=== PATIENT | male | born 1925 | race Caucasian/White ===

== ENCOUNTER 2016-06-07 09:18 | Inpatient (IN) | payer MEDICARE, OTHER ==
[2016-06-07] VITALS (9 sets, daily range): BP systolic 116–139; BP diastolic 55–73; PULSE 73–90; RESP 15–36; O2SAT 93–98
[~2016-06-07] VITALS: Ht 165.1 cm; Wt 64.9 kg
[~2016-06-07 09:18] MED LIST: ASCO-294 PO; ASPI-973 PO; CALC1CAP22 PO; CHOL10008 PO; CINN500C14 PO; FLAX1CAP4 PO; LISI-571 PO; LOVA40TA PO; METO25TA6 PO; OMEG1CAP99 PO; UBID100C25 PO; VITA1CAP16 PO; VITA400C64 PO
--- NOTE | 2016-06-07 09:35 | ED.REPORT ---
HPI-Abd Pain M 40 and Over Date of Service Jun 07, 2016 ED Provider: Jose C Wei Patient is an 89 year old male with a history of SBO (x6) who presents to the ED after being referred by urgent care complaining of upper abdominal pain onset 0330 this morning. Associated symptoms include nausea and productive cough (onset yesterday). He denies fever, vomiting, diarrhea, or any other symptoms. Patient has an inguinal hernia but he reports that this pain feels more like previous SBO's. He ate yogurt, cottage cheese, and apple sauce at 0430 with Tums and prune juice. Nursing Notes Stated Complaint: ABDOMINAL PAIN Chief Complaint: Male Abdominal Pain Nursing Notes Reviewed: Yes Allergies: Coded Allergies: No Known Allergies (Verified Allergy, Unknown, 03/27/15) Scheduled Ascorbate Calcium (Vitamin C) 500 Mg Tablet 500 MG PO BID Aspirin (Aspirin) 81 Mg Tablet 81 MG PO DAILY Calcium Carbonate/Vitamin D3 (Calcium 600 + Vit D 400 Softgl) 1 Each Capsule 1 EACH PO BID Cholecalciferol (Vitamin D3) (Vitamin D3) 1,000 Unit Tab.chew 1,000 UNIT PO DAILY Cinnamon Bark (Cinnamon) 500 Mg Capsule 1,000 MG PO DAILY Flaxseed/Omega3,6,9/Fatty Acid (Flax Seed Oil 1,300 mg Softgel) 1 Each Capsule 1 EACH PO DAILY Lisinopril (Lisinopril) 5 Mg Tablet 10 MG PO DAILY Lovastatin (Lovastatin) 40 Mg Tablet 40 MG PO HS Metoprolol Tartrate (Metoprolol Tartrate) 25 Mg Tablet 12.5 MG PO BID [place]-3 Fatty Acids/Fish Oil (Fish Oil 1,200 mg Softgel) 1 Each Capsule 1 EACH PO HS Ubidecarenone (Co Q-10) 100 Mg Capsule 100 MG PO DAILY Vitamin B Complex & Vit C No.3 (B Complex with Vitamin C) 1 Each Capsule 1 EACH PO DAILYWL Vitamin E Mixed (Vitamin E) 400 Unit Capsule 400 UNIT PO HS Miscellaneous Medications Cholecalciferol (Vitamin D3) (Vitamin D3) 1,000 Unit Tab.chew 1,000 UNIT PO General Time Seen by MD: 09:34 Chief Complaint Abdominal pain Hx Obtained From: Patient, Other family... 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 hypertension hyperlipidemia prerenal azotemia, resolved DM- Diet controlled Reports: Cancer (Skin ) Past Surgical History hernia repair small bowel obstruction that required surgical intervention lysis of adhesions Transurethral resection of the prostate R hip replacement Reports: Appendectomy Family History Noncontributory Smoking History Former Smoker Social History Drug Use: Denies drug use Other Social History: Good social support, , Local resident Ambulatory Status Independent Review of Systems Constitutional: Denies: Fever Respiratory: Reports: Prod cough, clear GI: Reports: Abdominal pain, Nausea, Denies: Diarrhea, Vomiting Complete sys rev & neg: except as marked. Physical Exam Initial Vital Signs Vital Signs (First) Date Time Temp Pulse Resp B/P Pulse Ox O2 Delivery O2 Flow Rate FiO2 06/07/16 09:24 36.5 88 15 137/63 98 Room Air Initial VS: Reviewed Head / Eyes: Atraumatic, Normocephalic Neck: Full range of motion Skin: Warm, Dry Neurologic: Alert, Oriented, Nonfocal Psychiatric: Mood/affect normal, Behavior normal, Normal thought content General/Constitutional: Awake, Alert, Well developed Respiratory / Chest: Atraumatic, Breath sounds NL, Breath sounds = bilat, No respiratory distress Cardiovascular: Heart rate NL, Regular rhythm, Heart sounds NL Abdomen: BS normoactive Tenderness/Guarding/Rebound: Positive: Tender LUQ... (Severe), Tender RUQ... ( Severe) Sever upper abdominal tenderness with guarding. Back: Atraumatic Interpretation & Diagnostics Lab Results Interpretation Result Diagram: 06/07/16 1004 06/07/16 1004 Test 06/07/16 10:04 White Blood Count 14.7th/mm3 (3.8-10.1) Red Blood Count 4.61mil/mm3 (4.40-5.80) Hemoglobin 14.7g/dL (13.8-17.2) Hematocrit 41.2% (41.0-50.0) Mean Corpuscular Volume 89.4fL (81-100) Mean Corpuscular Hemoglobin 31.9pg (27.0-35.0) Mean Corpuscular Hemoglobin Concent 35.7% (32.0-37.0) Red Cell Distribution Width 11.7% (12.3-15.4) Platelet Count 282bil/L (150-400) Neutrophils (%) (Auto) 89.1% (40-74) Lymphocytes (%) (Auto) 2.1% (14-46) Monocytes (%) (Auto) 8.0% (4-12) Eosinophils (%) (Auto) 0.4% (0-5) Basophils (%) (Auto) 0.1% (0-3) Sodium Level 127mEq/L (134-144) Potassium Level 4.9mEq/L (3.5-5.2) Chloride Level 88mEq/L (97-108) Carbon Dioxide Level 24mmol/L (18-29) Blood Urea Nitrogen 28mg/dL (8-27) Creatinine 0.83mg/dL (0.76-1.27) Estimat Glomerular Filtration Rate 93mL/min (>59) Glucose Level 153mg/dL (60-99) Calcium Level 9.7mg/dL (8.5-10.1) Magnesium Level 1.8mg/dL (1.6-2.6) Total Bilirubin 0.9mg/dL (0.0-1.2) Aspartate Amino Transf (AST/SGOT) 32U/L (0-50) Alanine Aminotransferase (ALT/SGPT) 24U/L (0-44) Alkaline Phosphatase 53U/L (25-160) Total Protein 7.8g/dL (6.4-8.4) Albumin 4.4g/dL (3.4-5.0) Lipase 25U/L (13-60) ECG Interpretation ECG Interpretation: Sinus rate 69 no ischemia evidence prolonged SD interval probable left atrial enlargement Time: 11:43 Interpreted by: ED physician X-Ray Abdominal Interpretation IMPRESSION: Findings consistent with evolving mid or distal small bowel obstruction. Dictated by: Yunior Lou M.D. on 06/07/2016 at 10:51 Approved by: Yunior Lou M.D. on 06/07/2016 at 10:51 Study: 2 view Interpretation / Wet Read by: Interpret - Radiologist Re-Eval/Medical Decision Time of Eval: 11:25 )( Re-Eval Abdomen: Tenderness Re-Evaluation/Progress Note: Discussed need for admission. Patient understands and agrees with plan. All questions addressed at this time. Consultation #1: Referral / Consult Name: Carolee Anderson MD Consulted With: Surgeon Call Returned at: 11:12 Note: Discussed patient's case. Suggests NG2. Consultation #2: Referral / Consult Name: Sae Dawkins MD Consulted With: Hospitalist Call Returned at: 11:20 Geomatics Professor: Will see patient, Agrees with eval, Agrees with plan, Accepts admit Note: Discussed patient's case. Accepts admit. Counseled Regarding: Diagnosis, Lab results, Need for admission Discharge & Departure Primary Impression: SBO (small bowel obstruction) Disposition: ADMITTED TO HOSPITAL Vital Signs - All Vital Signs Date Time Temp Pulse Resp B/P Pulse Ox O2 Delivery O2 Flow Rate FiO2 06/07/16 09:24 36.5 88 15 137/63 98 Room Air Referrals: Irving Mondragon DO (PCP) Scribe Attestation Portions of this note were transcribed by Tatum Germain. I, Dr. Wei personally performed the history, physical exam and medical decision-making; I reviewed and confirmed the accuracy of the information in the transcribed note. Signed by: Tatum Germain 06/07/2016, 1157 copies to: Irving Mondragon Kirk H MD Jun 07, 2016 09:34 TATUM GERMAIN Jun 07, 2016 09:43
[2016-06-07] MEDS ORDERED: 0.9% Sodium Chloride 1,000 ML IV ONE (09:48)
[2016-06-07] MEDS ORDERED: Ondansetron 2 mg/mL 2 mL Inj IVPUSH PRN (09:50)
[2016-06-07] MEDS ORDERED: HYDROmorphone 0.5 mg/0.5 mL iSecure Syringe IVPUSH PRN (09:50)
[2016-06-07 10:50] LABS: Magnesium 1.8 mg/dL (1.6-2.6)
--- NOTE | 2016-06-07 10:53 | DRSVH ---
PROCEDURE: X-RAY ACUTE ABDOMINAL SERIES ([id number]) INDICATIONS: 89 year-old male with abdominal pain and nausea. TECHNIQUE: One view chest and two views of the abdomen were acquired. COMPARISON: [facility], CR, XR CHEST 1VW (PORTABLE), 03/27/2015, 5:15. [facility], CR, XR CHEST 1VW (PORTABLE), 03/27/2015, 2:29. [facility], CR, CHEST 1VW (DOROTEO BLE), 03/17/2014, 22:46. FINDINGS: Surgical changes and devices: Patient is status post right hip arthroplasty. Chest: Lungs are clear. Heart size is normal. No pleural effusions. No pneumoperitoneum. Abdomen: Multiple mildly dilated small bowel loops are present. There is scattered stool within nondi stended colon loops. No suspicious calcifications. Visualized solid organ contours appear normal. Bones: No suspicious bony lesions. There is multilevel lumbar spine disc degeneration. IMPRESSION: Findings consistent with evolving mid or distal small bowel obstruction. Dictated by: Yunior Lou M.D. on 06/07/2016 at 10:51 Approved by: Yunior Lou M.D. on 06/07/2016 at 10:51
[2016-06-07 11:04] LABS: Mean Corpuscular Volume 89.4 fL (81-100)
[2016-06-07 11:05] LABS: BASOPHILS % (AUTO) 0.1 % (0-3); EOSINOPHILS % (AUTO) 0.4 % (0-5); Mean Corpuscular Hemoglobin 31.9 pg (27.0-35.0); NEUTROPHILS % (AUTO) 89.1 % (40-74); Platelet Count 282 bil/L (150-400)
[2016-06-07] MEDS ORDERED: Alum-Mag Hydrox-Simeth 30 mL Suspension PO PRN (12:05)
[2016-06-07] MEDS ORDERED: Polyethylene Glycol (PEG) 17 Gm Powder PO PRN (12:05)
--- NOTE | 2016-06-07 15:30 | NUR ---
Admit Received patient from ED via gurney, with complaints of abdominal pain started this morning. NGT patent and in place, attached to low intermittent suction. Oriented to room and unit. Denies any pain at this time. Will continue to monitor.
[2016-06-07] MEDS: 0.9% Sodium Chloride 1,000 ML IV SCH (16:06)
--- NOTE | 2016-06-07 16:50 | PCM.HPMED ---
Subjective Date of Service Jun 07, 2016 Primary Provider: Admitting Physician: Sae Dawkins MD Primary Care Physician: Irving Mondragon DO Attending Physician: Sae Dawkins MD Admit Status: From the Emergency Department, Full Admit, Admit to Red Team Chief Complaint: Generalized abdominal pain/10h Dry heave/4 h 2 episodes of diarrhea/10 h History of Present Illness: 89-year-old gentleman with past medical history of recurrent SBO x6, hypertension, Bilateral carotid stenoses,multivessel CAD, history of laparotomy for small bowel obstruction, history of hernia repair presented with Generalized abdominal pain/10h,Dry heave/4 h,2 episodes of diarrhea/10 h. He states he woke up with sudden onset generalized, colicky, intermittent abdominal pain was associated abdominal distention at 3 AM this morning.he took Tums and Yogurt. He then had 2 episodes of loose stool. He continued to have abdominal pain and distention which prompted ED visit. He had dry cough yesterday which is new. Denies fever. Has epigastric pain but denies chest pain. Denies diaphoresis Ed Course: Vital signs unremarkable. Distended abdomen. labs; WBC 14.7, hemoglobin 14.7, sodium 127, lipase 25.ekg NSR abd XR: evolving mid or distal small bowel obstruction. IV fluids started, NG tube placed. Admission requested for small bowel obstruction Review of Systems: Comprehensive review of systems performed, pertinent positives and negatives included in history of present illness Allergies Coded Allergies: No Known Allergies (Verified Allergy, Unknown, 03/27/15) Home Medications Aspirin 81 mg daily Metoprolol 12.5 mg by mouth twice a day Lovastatin 40 mg at bedtime Lisinopril 40 mg by mouth daily, recently started PMH recurrent SBO x6, Bilateral carotid stenoses hypertension, multivessel CAD, [place] July 2013 history of laparotomy for small bowel obstruction Surgical History Cardiac cath 2013 Right hip replacement 2007 Laparotomy for small bowel obstruction 2009 TURP late Hernia repair with mesh 2 years ago Family History Reviewed and noncontributory Social History Hx Alcohol Use: No Hx Substance Use: No Hx Tobacco Use: No Smoking Status: Former Smoker Exam Vital Signs Vital Sign - Last Date Time Temp Pulse Resp B/P Pulse Ox O2 Delivery O2 Flow Rate FiO2 06/07/16 15:20 36.7 90 16 128/63 95 Room Air Exam Gen. patient is lying comfortably in hospital bed. NG tube in place, drained 200 ml HEENT: Head is normocephalic atraumatic, Pupils equal and reactive, extraocular movements intact, Lungs clear to auscultation bilaterally Heart regular rate and rhythm without murmurs gallops or rubs Abdomen , distended, slightly tender, tympanic all over. Hypoactive BS Extremities pulses are present dorsalis pedis posterior tibialis and radial. Skin is warm and dry there are no rashes, Psych alert and oriented to person place and time Neuro cranial nerves II through XII are grossly intact Lymph: There is no lymphadenopathy appreciated in the cervical supra infraclavicular regions : no franklin Lab and Diagnostics Result Diagram: 06/07/16 1004 06/07/16 1004 X-Rays, CTs and MRIs PROCEDURE: X-RAY ACUTE ABDOMINAL SERIES ([id number]) INDICATIONS: 89 year-old male with abdominal pain and nausea. TECHNIQUE: One view chest and two views of the abdomen were acquired. COMPARISON: [facility], CR, XR CHEST 1VW (PORTABLE), 03/27/2015, 5: 15. [facility], CR, XR CHEST 1VW (PORTABLE), 03/27/2015, 2:29. [facility], CR, CHEST 1VW (PORTABLE), 03/17/2014, 22:46. FINDINGS: Surgical changes and devices: Patient is status post right hip arthroplasty. Chest: Lungs are clear. Heart size is normal. No pleural effusions. No pneumoperitoneum. Abdomen: Multiple mildly dilated small bowel loops are present. There is scattered stool within nondistended colon loops. No suspicious calcifications. Visualized solid organ contours appear normal. Bones: No suspicious bony lesions. There is multilevel lumbar spine disc degeneration. IMPRESSION: Findings consistent with evolving mid or distal small bowel obstruction. Dictated by: Yunior Lou M.D. on 06/07/2016 at 10:51 Assessment & Plan 89-year-old gentleman with past medical history of recurrent SBO x6, hypertension, Bilateral carotid stenoses,multivessel CAD, history of laparotomy for small bowel obstruction, history of hernia repair presented with Generalized abdominal pain,Dry heave,2 episodes of diarrhea 1day . # Small bowel obstruction, acute, POA -Continue NG tube suction -Nothing by mouth -Serial abdominal exam and x-ray -pain meds prn,zofran prn - will consult surgery if continues to be symptomatic on NG tube # Leukocytosis, acute, POA -Due to SBO, will send procalcitonin,ua -Monitor for now, hold off antibiotics # hyponatremia -Na 127 -due to dehydration -NS at 100ml/h -recheck in am #Diarrhea,acute -Will send stool studies # History of CAD, history of carotid stenosis -Metoprolol 5 mg IV every 6 -will resume aspirin and statin once NG tube removed #Hypertension, chronic, stable -will resume home lisinopril once NG tube removed Discussed CODE STATUS,DNR/DNI SILVINO Sanchez tel [phone] Patient admitted under inpatient status with expected length of stay > 2 midnights for severity of present symptoms, complexities of treatment plan and risk for adverse events Time spent 55 minutes copies to: Irving Mondragon Melaku MD Jun 07, 2016 16:50
--- NOTE | 2016-06-07 20:33 | NUR ---
NGT At 1915, no NGT output in drainage container. At 1999, pt started to c/o 10/10 abdominal pain, feeling increasing abdominal pressure, and stated "My mouth is on fire." 2 RNs checked for NGT patency and flushed with 30 ml water. Stomach contents sluggishly moved through NGT, never reaching drainage container despite high suction. NGT does not seem to be patent. Anthony DOW at 2031. No response yet. Addendum: 06/07/16 at 2038 by DANIE CAMILO RN Repeat freddie at 2036. No response yet. Addendum: 06/07/16 at 2055 by DANIE CAMILO RN called back, ordered STAT CXR to check NGT placement. Ordered magic mouthwash for oral discomfort. Ordered tele removed for procedure. Pt continues to be in 10 pain and c/o nausea Addendum: 06/07/16 at 2251 by DANIE CAMILO RN CXR: NGT in correct placement. Flushed with 30 ml warm water and aspirated 20 ml. NGT seems to be draining and patent. Pt has little relief of pain and distention. Administered magic mouthwash. Will continue to monitor.
--- NOTE | 2016-06-07 21:14 | DRSVH ---
PROCEDURE: X-RAY CHEST ONE VIEW, PORTABLE ([id number]) INDICATIONS: 89 year-old male with nasogastric tube placement. TECHNIQUE: One view of the chest was acquired. COMPARISON: [facility], CR, XR ABD ACUTE SERIES 3VW, 06/07/2016, 10:18. [facility], CR, XR CHEST 1VW (PORTABLE), 03/27/2015, 5:15. [facility], CR, XR CHEST 1VW (PO RTABLE), 03/27/2015, 2:29. FINDINGS: Surgical changes and devices: Esophagogastric tube is now present, with tip in the gastric body. Lungs and pleura: No pleural effusions or pneumothorax. Lung volumes are decreased, with patchy ling ular opacities now present. Mediastinum: Mediastinal contours appear normal. Heart size is normal. There is aortic atheroscler osis. Bones and chest wall: No suspicious bony lesions. Overlying soft tissues appear unremarkable. IMPRESSION: 1. Esophagogastric tube tip is in expected position within the gastric body. 2. Decreased lung volumes, with patchy lingular atelectasis versus early pneumonia. Dictated by: Yunior Lou M.D. on 06/07/2016 at 21:13 Approved by: Yunior Lou M.D. on 06/07/2016 at 21:13
--- NOTE | 2016-06-07 22:30 | NUR ---
IV METOPROLOL Informed telemetry of IV metoprolol to be given. Per waste handling technician, HR 70s SR with 1 degree HB. BP 137/68. Addendum: 06/08/16 at 0525 by DANIE CAMILO RN Pt continued with SR 60s-70s with 1 degree HB all night. 2nd dose of metoprolol: Informed waste handling technician, same reading as above. BP 163/77 before administration.
[2016-06-07] MEDS: MeTOProlol 1 mg/mL 5 mL Inj IVPUSH SCH ×2 (22:33→22:35)
[2016-06-07] MEDS: Diphen-Lido-Mylanta 1:1:1 Susp 15 mL Syringe PO PRN (22:44)
[2016-06-08] VITALS (17 sets, daily range): BP systolic 100–167; BP diastolic 47–78; PULSE 65–94; RESP 12–20; O2SAT 91–95
[2016-06-08 01:17] LABS: APPEARANCE,URINE CLEAR (CLEAR,HAZY); COLOR,URINE DARK YELLOW (YELLOW)
[2016-06-08 01:18] LABS: OCCULT BLOOD,URINE NEGATIVE (NEGATIVE); UROBILINOGEN,URINE NORMAL (NORMAL)
[2016-06-08] MEDS: 0.9% Sodium Chloride 1,000 ML IV SCH ×3 (02:23→23:52)
[2016-06-08] MEDS: MeTOProlol 1 mg/mL 5 mL Inj IVPUSH SCH ×4 (04:45→22:35)
[2016-06-08] MEDS: Diphen-Lido-Mylanta 1:1:1 Susp 15 mL Syringe PO PRN (04:55)
[2016-06-08 07:37] LABS: BASOPHILS % (AUTO) 0 % (0-3); EOSINOPHILS % (AUTO) 0.1 % (0-5); Mean Corpuscular Hemoglobin 31.5 pg (27.0-35.0); Mean Corpuscular Volume 91.3 fL (81-100); NEUTROPHILS % (AUTO) 74.8 % (40-74); Platelet Count 218 bil/L (150-400)
[2016-06-08] MEDS ORDERED: Remifentanil 1 mg/3 mL Inj ONE (07:47)
[2016-06-08] MEDS ORDERED: Ketamine 10 mg/mL 20 mL Inj ONE (07:47)
[2016-06-08] MEDS ORDERED: Propofol 10,000 mCg/mL 20 mL Inj ONE (07:49)
[2016-06-08] MEDS ORDERED: Ondansetron 2 mg/mL 2 mL Inj ONE (07:49)
[2016-06-08] MEDS ORDERED: Dexamethasone 4 mg/mL Inj ONE (07:49)
[2016-06-08] MEDS ORDERED: Rocuronium 10 mg/mL 5 mL Inj ONE (07:49)
[2016-06-08 08:00] LABS: Magnesium 1.9 mg/dL (1.6-2.6)
--- NOTE | 2016-06-08 08:08 | PCM.PNSURG ---
Subjective Visit Information: Reason for Visit PSBO Surgery/Surgery Date Post-Op Day # Date of Admission: Jun 07, 2016 at 14:15 Hospital Day # Subjective: 89yom with SBO. I originally met him in 03/2015 when he presented with the same. He has a history of laparotomy with adhesiolysis for SBO. Overnight he has clear green NG output and continues to have abdominal pain. WBC is pending. Lactate is normal NG 530 mL out. Objective Vital Sign- Last 8 Hours Date Time Temp Pulse Resp B/P Pulse Ox O2 Delivery O2 Flow Rate FiO2 06/08/16 05:07 94 06/08/16 04:59 36.6 72 16 163/77 94 Room Air 06/08/16 04:38 68 06/08/16 01:21 37.0 66 20 134/67 93 Room Air 06/08/16 00:44 68 Intake and Output- Last 8 Hour 06/08/16 Cumulative From/Thru 07:00 06/07/16 09:24 - 06/08/16 05:32 Intake Total 1110 ml 2488 ml Output Total 864 ml 864 ml Balance 246 ml 1624 ml Intake Oral 100 ml 100 ml IV Total 1010 ml 2388 ml Output Urine Total 330 ml 330 ml Gastric Drainage Total 534 ml 534 ml General: Oriented X3, Cooperative, No Acute Distress Abdomen: Soft, Distended, Other (Tender, distended abdomen) Result Diagram: 06/07/16 1004 06/08/16 0654 Assessment & Plan Impression 89yom with SBO. Problems: Plan I am ordering a gastrografin challenge this morning. I will reassess him after it is administered. Carolee Anderson MD Jun 08, 2016 08:08
--- NOTE | 2016-06-08 08:49 | NUR ---
Bowel status Dr. Anderson assessed pt at bedside at 0745. Notified of overnight NG output and pt reports of pain and no BM/flatus. Abdomen taut. Per Dr. Anderson, no ice chips. To complete gastrograffin.
--- NOTE | 2016-06-08 09:46 | NUR ---
Gastrograffin Instilled with xray and RN at 0915. To remain off suction for 4 hours. Pt tolerated procedure well. Pain decreased in abd to 2/10 with morphine.
--- NOTE | 2016-06-08 11:04 | NUR ---
instilled with hotel maintenance technician at bedside, no xray performed
--- NOTE | 2016-06-08 11:04 | NUR ---
Status [address] Anderson that gastrograffin instilled at 0915. to order abdominal imaging at 1315, to place pt back on suction post imaging.
--- NOTE | 2016-06-08 11:09 | NUR ---
Social Work: Initial Assessment D: Per EMR review, pt is an 89 year old male admitted for partial SBO. Pt is [facility] Medicare with no LTC insurance or VA benefits. PCP is Dr. Irving Mondragon. NOK and DPOA is Ingrid Portillo/DPKANWAL, . Advanced directives scanned into EMR. Readmit score is low, 2/8. CLAIM MANAGER met with pt at bedside. Sw role explained. See initial assessment. Pt states he lives in [place], alone. Pt's niece/DPOA lives on the same property and assists pt with getting to medical appointments, errands and groceries. Pt has a history with [facility] for RN, PT however states that they have not been open since May. Pt does not believe that he needed home health in the first place and does not believe he needs it now. Pt also has a history with [facility]. Pt owns a walker and cane but states he does not require the use of them at this time. Per [employer], pt has been ambulating I during admission. Pt currently with NG tube in place to treat SBO. General Surgery is following the pt as well as hospitalist team. t/c to pt's DPOA to discuss possible needs; l/m requesting return phone call. A: Pt who lives at home, alone and owns a walker and cane. P: Anticipate pt to discharge home via POV; r/o possible home health. CLAIM MANAGER to continue to follow and assist with safe dcp. QUE Grace Addendum: 06/08/16 at 1116 by JESU FRIEND SS Amended: Links added.
--- NOTE | 2016-06-08 13:09 | NUR ---
Xray Pt down to xray at 1315. Stable.
--- NOTE | 2016-06-08 13:38 | DRSVH ---
PROCEDURE: X-RAY ABDOMEN, ONE VIEW ([id number]) INDICATIONS: sbo TECHNIQUE: One view of the abdomen acquired. COMPARISON: [facility], CR, XR ABD ACUTE SERIES 3VW, 06/07/2016, 10:18. FINDINGS: Surgical changes and devices: NG tube projects to the proximal stomach. Bowel: Proximal loops of small bowel are dilated up to 4.8 cm compatible with small bowel obstructio n. Dilated loops of bowel have decreased slightly in diameter compared to . Soft tissues: No suspicious abdominal calcifications. Visualized solid organ contours appear normal in size. Bones: No suspicious bony lesions. Status post right hip arthroplasty. IMPRESSION: Dilated loops of small bowel compatible with small bowel obstruction. Dictated by: Ilana Rockwell MD, PhD on 06/08/2016 at 13:36 Approved by: Ilana Rockwell MD, PhD on 06/08/2016 at 13:36
--- NOTE | 2016-06-08 13:42 | NUR ---
Xray Back from xray at 1335. Dr. Anderson paged at 1342 to determine if she would like to review films prior to reconnecting NG to suction. Pt stable. Addendum: 06/08/16 at 1355 by MONIQUE MCCRAY RN Per Dr. Anderson, to place pt back on suction, MD will come and evaluate at bedside.
--- NOTE | 2016-06-08 15:17 | PCM.PNMED ---
Subjective Date of Service Jun 08, 2016 Subjective Continues to have abdominal distention, NG tube to suction. Will have Gastrografin challenge today. No bowel movement or gas passed Exam Vital Signs Vital Sign - Last Date Time Temp Pulse Resp B/P Pulse Ox O2 Delivery O2 Flow Rate FiO2 06/08/16 12:40 36.8 65 16 167/78 92 Room Air Intake and Output 06/07/16 06/07/16 06/08/16 Cumulative From/Thru 15:00 23:00 07:00 06/07/16 09:24 - 06/08/16 05:32 Intake Total 1000 ml 378 ml 1110 ml 2488 ml Output Total 864 ml 864 ml Balance 1000 ml 378 ml 246 ml 1624 ml Intake Oral 100 ml 100 ml IV Total 1000 ml 378 ml 1010 ml 2388 ml Output Urine Total 330 ml 330 ml Gastric Drainage Total 534 ml 534 ml Exam Gen. patient is lying comfortably in hospital bed. NG tube in place, drained 200 ml HEENT: Head is normocephalic atraumatic, Pupils equal and reactive, extraocular movements intact, Lungs clear to auscultation bilaterally Heart regular rate and rhythm without murmurs gallops or rubs Abdomen , distended, slightly tender, tympanic all over. Hypoactive BS Extremities pulses are present dorsalis pedis posterior tibialis and radial. Skin is warm and dry there are no rashes, Psych alert and oriented to person place and time Neuro cranial nerves II through XII are grossly intact Lymph: There is no lymphadenopathy appreciated in the cervical supra infraclavicular regions : no franklin IVs and Medications Medications Reviewed: Medications were reviewed in detail Lab and Diagnostics Result Diagram: 06/08/16 0654 06/08/16 0654 X-Rays, CTs and MRIs PROCEDURE: X-RAY ACUTE ABDOMINAL SERIES ([id number]) INDICATIONS: 89 year-old male with abdominal pain and nausea. TECHNIQUE: One view chest and two views of the abdomen were acquired. COMPARISON: [facility], CR, XR CHEST 1VW (PORTABLE), 03/27/2015, 5: 15. [facility], CR, XR CHEST 1VW (PORTABLE), 03/27/2015, 2:29. [facility], CR, CHEST 1VW (PORTABLE), 03/17/2014, 22:46. FINDINGS: Surgical changes and devices: Patient is status post right hip arthroplasty. Chest: Lungs are clear. Heart size is normal. No pleural effusions. No pneumoperitoneum. Abdomen: Multiple mildly dilated small bowel loops are present. There is scattered stool within nondistended colon loops. No suspicious calcifications. Visualized solid organ contours appear normal. Bones: No suspicious bony lesions. There is multilevel lumbar spine disc degeneration. IMPRESSION: Findings consistent with evolving mid or distal small bowel obstruction. Dictated by: Yunior Lou M.D. on 06/07/2016 at 10:51 Assessment & Plan 89-year-old gentleman with past medical history of recurrent SBO x6, hypertension, Bilateral carotid stenoses,multivessel CAD, history of laparotomy for small bowel obstruction, history of hernia repair presented with Generalized abdominal pain,Dry heave,2 episodes of diarrhea 1day . # Small bowel obstruction, acute, POA -Continue NG tube suction -Nothing by mouth -Serial abdominal exam and x-ray -Gastrografin challenge today -pain meds prn,zofran prn -Surgery on board # Leukocytosis, acute, POA -Due to SBO, will send procalcitonin,ua -Monitor for now, hold off antibiotics # hyponatremia, improving -Initial Na 127 -due to dehydration -NS at 100ml/h -recheck in am #Diarrhea,acute -Will send stool studies # History of CAD, history of carotid stenosis -Metoprolol 5 mg IV every 6 -will resume aspirin and statin once NG tube removed #Hypertension, chronic, stable -will resume home lisinopril once NG tube removed Discussed CODE STATUS,DNR/DNI SILVINO Sanchez tel [phone] Disposition: [facility] course Sae Dawkins MD Jun 08, 2016 15:17
--- NOTE | 2016-06-08 15:28 | NUR ---
Status Dr. Anderson assessed pt at bedside. Discussed possibility of surgery with pt. Pt's abdomen continues to be distended with NG output with continued GI discomfort and no flatus/BM. Dr. Anderson to return this afternoon to discuss further. Dr. Anderson aware of elevated BP's today. Ingrid DUBOIS, number [phone] Addendum: 06/08/16 at 1618 by MONIQUE MCCRAY RN Per Dr. Anderson, pt will be going to surgery this afternoon/evening.
--- NOTE | 2016-06-08 16:18 | NUR ---
BP 1615 Hospitalist notified via cook page that BPs have been 160s/70s today.
--- NOTE | 2016-06-08 16:41 | PCM.HPANE ---
Patient Data Surgeon Admitting Provider:Sae Dawkins MD Attending Provider:Sae Dawkins MD Primary Care Physician:Irving Mondragon DO Other Provider: Reason for Visit PSBO Ht/WT & BMI Height (Feet): 5 Height (Inches): 5.00 Weight (Kilograms): 68.400 Body Mass Index 25.12 Allergies Coded Allergies: No Known Allergies (Verified Allergy, Unknown, 03/27/15) Past Anesthesia History Anesthesia History: Denies:: Anesthesia Reactions Diabetes History Hx Diabetes?: Yes (diet controlled) MRSA MRSA: No Medications Reported Medications Ubidecarenone (Co Q-10)100 Mg Letuany322 Mg PO DAILY 03/27/15 Cinnamon Bark (Cinnamon)500 Mg Capsule1,000 Mg PO DAILY 03/27/15 [place]-3 Fatty Acids/Fish Oil (Fish Oil 1,200 mg Softgel)1 Each Capsule1 Each PO HS 03/27/15 Flaxseed/Omega3,6,9/Fatty Acid (Flax Seed Oil 1,300 mg Softgel)1 Each Capsule1 Each PO DAILY 03/27/15 Vitamin E Mixed (Vitamin E)400 Unit Ticxjls266 Unit PO HS 30 Days 03/27/15 Cholecalciferol (Vitamin D3) (Vitamin D3)1,000 Unit Tab.chew1,000 Unit PO 03/27/15 Ascorbate Calcium (Vitamin C)500 Mg Egstfl273 Mg PO BID 03/27/15 Vitamin B Complex & Vit C No.3 (B Complex with Vitamin C)1 Each Capsule1 Each PO DAILYWL 03/27/15 Calcium Carbonate/Vitamin D3 (Calcium 600 + Vit D 400 Softgl)1 Each Capsule1 Each PO BID 03/27/15 Metoprolol Tartrate 25 Mg Hfvrsm27.5 Mg PO BID 30 Days Ref 0 03/27/15 Aspirin 81 Mg Psmtgu09 Mg PO DAILY Ref 0 03/27/15 Lovastatin 40 Mg Zhswph90 Mg PO HS #30 TABLET Ref 0 03/27/15 Lisinopril 5 Mg Smrrwl81 Mg PO DAILY #30 TABLET Ref 0 03/27/15 Discontinued Reported Medications Cholecalciferol (Vitamin D3) (Vitamin D3)1,000 Unit Tab.chew1,000 Unit PO DAILY 03/27/15 History History of ENT Problems?: Yes HEENT History: Denies:: Cataracts (removed, lens implant) Sinus Problem Denture Type: Partial- Upper Partial- Lower Other HEENT Pertinent History: Lens replacement per patient report. Hx of Heart Problems?: Yes Cardiovascular History: Positive for:: Hypertension Denies:: Cardiac Surgery Chest Pain Congestive Heart Failure Edema Heart Murmur Irregular Heartbeat Pacemaker Thrombophlebitis Other Cardiac History: Bilateral carotid stenosis, mult CAD Hx of Respiratory Problem?: No Respiratory History: Denies:: Tuberculosis Neurological History: Positive for:: Dizziness (dizziness this morning.) Headaches (seldomly) Denies:: Alzheimer's Disease CVA Dementia Parkinson's Disease Seizures Hx of GI Problems?: Yes Gastrointestinal History: Positive for:: Gastroesphageal Reflux Heartburn Rectal Bleeding (hemmorhoids) Denies:: Diverticulitis Gastrointestinal Bleeding Hepatitis Hiatal Hernia Hx of Problems?: Yes Genitourinary History: Denies:: HX of Hemodialysis Kidney Stones (denies) Urinary Tract Infection HX of Peritoneal Dialysis: No Male Hx: Positive for:: Prostate Problems (turp) Denies:: Scrotal Mass Testicular Surgery Hx Musculoskeletal Problems?: Yes Musculoskeletal History: Positive for:: Back Injury Joint Replacement (right hip) Denies:: Musculoskeletal Trauma Hx of Psycho/Social Problems?: No Psycho Social History: Denies:: Anxiety Bipolar Disorder Hx Depression Suicide Attempt Hx Surgeries?: Yes (right hip, appendicitis, small bowel obstruction, TURP) Hx Any Other Health Problems?: Yes Other History: Positive for:: Cancer (skin, 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 Denies:: Blood Transfuse Reaction Blood Transfusions Hx Diabetes: Yes (diet controlled) Hx Alcohol Use: NoHx Substance Use: No Smoking Status: Former Smoker Have You Smoked inLast 12 mo: No Stop/Bang Treated for Sleep Apnea?: No Do You Have a CPAP Machine?: No S-Snoring: Do You Snore Loudly: No T-Tired: feel tired, fatigued: No O-Obsered: Observed not breath: No P-Blood Pressure: treated: Yes B- Body Mass Index > 35 kg/m2: No A- Age over 50: Yes N- Neck Large Circumference: No G- Gender Male: Yes JAEL Total Score: 2 Risk Assessment Category Category 1A: Patient has history of documented sleep apnea, and HAS NOT received any narcotic, sedative or anesthesia administration during this stay. Category 1B: Patient has history of documented sleep apnea, and HAS received any narcotic , sedative or anesthesia administration during this stay Category 2: Patient has SUSPECTED Obstructive Sleep Apnea, and HAS received any narcotic , sedative or anesthesia administration during this stay. Category 3: Patient has SUSPECTED Obstructive Sleep Apnea and HAS NOT received narcotic, sedative or anesthesia administration during this stay. Category 4: Outpatient in Procedural Areas with known sleep apnea or who screen positive for High Risk via the STOP/BANG questionnaire. Exam Exam Vital Signs Vital Signs Date Time Temp Pulse Resp B/P Pulse Ox O2 Delivery O2 Flow Rate FiO2 06/08/16 16:12 36.9 82 14 165/78 92 Room Air 06/08/16 12:40 36.8 65 16 167/78 92 Room Air General Appearance: Alert, Oriented X3, Cooperative HEENT/AIRWAY: MP 2 Lungs: Normal Air Movement Heart: Exam Unremarkable Meds/Labs/Diagnostics Admission Meds Current Medications Enoxaparin Sodium (Lovenox Syringe) 40 mg DAILY SUBQ Last administered on t 07:45; Start 06/08/16 at 08:30 Labs Test 06/07/16 10:04 06/07/16 17:15 06/08/16 00:50 06/08/16 06:54 Lipase 25U/L (13-60) Lactic Acid Level 1.4mmol/L (0.4-2.0) Urine Color Dark yellow (YELLOW) Urine Appearance Clear (CLEAR,HAZY) Urine pH 6.0 (5.0-8.0) Urine Specific [place] 1.020 (1.003-1.035) Urine Protein Negativemg/dL (NEG,TRACE) Urine Glucose (UA) Negativemg/dL (NEGATIVE) Urine Ketones Negativemg/dL (NEGATIVE) Urine Occult Blood Negative (NEGATIVE) Urine Nitrite Negative (NEGATIVE) Urine Bilirubin Negative (NEGATIVE) Urine Urobilinogen Normalmg/dL (NORMAL) Urine Leukocyte Esterase Negative (NEGATIVE) Urine RBC 0-2/hpf (0-2) Urine WBC 0-5/hpf (0-5) Urine Epithelial Cells Occasional/hpf (NONE-MOD) Urine Crystals None seen (NONE SEEN) Urine Bacteria None/hpf (NONE-FEW) Urine Hyaline Casts None/lpf (NONE) Urine Granular Casts None seen (NONE SEEN) Urine Waxy Casts None seen (NONE SEEN) Urine Red Blood Cell Casts None seen (NONE SEEN) Urine White Blood Cell Casts None seen (NONE SEEN) Urine Mucus Present (None Seen) Urine Trichomonas None seen (NONE SEEN) Urine Yeast None (NONE SEEN) White Blood Count 7.9th/mm3 (3.8-10.1) Red Blood Count 3.90mil/mm3 (4.40-5.80) Hemoglobin 12.3g/dL (13.8-17.2) Hematocrit 35.6% (41.0-50.0) Mean Corpuscular Volume 91.3fL (81-100) Mean Corpuscular Hemoglobin 31.5pg (27.0-35.0) Mean Corpuscular Hemoglobin Concent 34.6% (32.0-37.0) Red Cell Distribution Width 11.9% (12.3-15.4) Platelet Count 218bil/L (150-400) Neutrophils (%) (Auto) 74.8% (40-74) Lymphocytes (%) (Auto) 13.0% (14-46) Monocytes (%) (Auto) 12.0% (4-12) Eosinophils (%) (Auto) 0.1% (0-5) Basophils (%) (Auto) 0% (0-3) Sodium Level 129mEq/L (134-144) Potassium Level 5.0mEq/L (3.5-5.2) Chloride Level 94mEq/L (97-108) Carbon Dioxide Level 25mmol/L (18-29) Blood Urea Nitrogen 25mg/dL (8-27) Creatinine 0.83mg/dL (0.76-1.27) Estimat Glomerular Filtration Rate 93mL/min (>59) Glucose Level 128mg/dL (60-99) Calcium Level 9.0mg/dL (8.5-10.1) Magnesium Level 1.9mg/dL (1.6-2.6) Total Bilirubin 1.0mg/dL (0.0-1.2) Aspartate Amino Transf (AST/SGOT) 24U/L (0-50) Alanine Aminotransferase (ALT/SGPT) 16U/L (0-44) Alkaline Phosphatase 42U/L (25-160) Total Protein 6.5g/dL (6.4-8.4) Albumin 3.6g/dL (3.4-5.0) Plan Impression Patient chart reviewed, patient interviewed and anesthestic plan with risks, benefits, and alternatives discussed, and informed consent obtained. ASA Physical Status: ASA3 Severe Disease Anesthetic Plan: GA Bene/Risks/Altern/Consents: Yes HP Complete Prior to Induction: Yes Lyle Lees MD Jun 08, 2016 16:41
[2016-06-08] MEDS ORDERED: Lactated Ringer's 500 ML IV PRN (16:44)
[2016-06-08] MEDS ORDERED: Lactated Ringer's 1,000 ML IV SCH (16:44)
[2016-06-08] MEDS ORDERED: HYDROmorphone 1 mg/mL Inj IVPUSH PRN (16:45)
[2016-06-08] MEDS ORDERED: MetoCLOpramide 5 mg/mL 2 mL Inj IVPUSH PRN (16:45)
[2016-06-08] MEDS ORDERED: Dexamethasone 4 mg/mL Inj IVPUSH PRN (16:45)
[2016-06-08] MEDS ORDERED: EPHEDrine Sulfate 50 mg/mL Inj IVPUSH PRN (16:45)
[2016-06-08] MEDS ORDERED: Phenylephrine 10,000 mCg/mL Inj IVPUSH PRN (16:45)
[2016-06-08] MEDS ORDERED: CefOXitin Sodium 1,000 mg Inj IV STA (16:59)
[2016-06-08] MEDS ORDERED: CeFAZolin Inj 2 GM in IV Premix 1 EACH IV ONE (17:40)
--- NOTE | 2016-06-08 17:49 | NUR ---
Surgery Pt transported to surgery at 1705. NG tube clamped. Tele removed, pt stable. Niece able to discuss surgery with Dr. Anderson.
[2016-06-08] MEDS ORDERED: Lactated Ringer's 1,000 ML IV ONE ×2 (17:50→18:59)
--- NOTE | 2016-06-08 17:58 | PROG NOTE ---
[address] [address] PROGRESS NOTE PATIENT: SARAH BROWN : 1925 MR#: [id number] ADMIT: 06/07/2016 JOB ID: [id number] DATE: 06/08/2016 This is an 89-year-old man with a small bowel obstruction. The patient has had several admissions for small bowel obstructions in the past, and previous CT scans have shown a transition point in the right lower quadrant. Today, he has pain specifically worse in the right lower quadrant. He remains very distended, tympanic, and with ongoing pain that has shown very little improvement since he was admitted. This morning, I administered Gastrografin via NG tube and clamped the tube. An x-ray 4 hours later shows that the Gastrografin was stuck in his stomach and was not moving at all. The NG tube was then placed to suction and he filled nearly a 1 L canister with gastric contents. Despite this, he continues to be distended and tender. Although his vital signs and white blood cell count have remained normal, he and I discussed the potential risk of viscus perforation if he is left in this state too long. We additionally discussed the risks of surgery, including infection, bleeding, wound complications, and the potential for cardiovascular and pulmonary complications; he has had a heart attack in the past and has bilateral carotid artery stenosis, both which raise his risk for perioperative myocardial infarction and stroke, of which he is aware. All of these things were also discussed with his DPOA, Thelma Sanchez. They both agree that it is reasonable to proceed with surgery given his overall clinical status. This will be performed this evening.
[2016-06-08] MEDS ORDERED: Bupivacaine Liposome 1.3% 20 mL Inj ONE (19:13)
[2016-06-08] MEDS: Ondansetron 2 mg/mL 2 mL Inj IVPUSH PRN (23:05)
[2016-06-08] MEDS: fentaNYL-PF 50 mCg/mL 2 mL Inj IVPUSH PRN ×4 (23:14→23:28)
[2016-06-08] MEDS ORDERED: HYDROmorphone PCA 0.2 mg/mL 30 mL Inj IV PRN (23:15)
[2016-06-08] MEDS ORDERED: Acetaminophen IV 1,000 MG in IV Premix 1 EACH IV PRN (23:20)
[2016-06-09] VITALS (15 sets, daily range): BP systolic 115–146; BP diastolic 58–76; PULSE 71–95; RESP 12–18; O2SAT 91–98
--- NOTE | 2016-06-09 00:23 | NUR ---
POST OP Pt arrived on floor at 2340. Report received from Lisa. Doyle in place. NGT in place with continuous low suction. Medipore and ABD on abdominal incision, no apparent drainage. Mild redness on r. abdomen from retractors per OR. Slight skin tear in same spot with bacitracin applied. Back mildly red, sacrum mildly red borders. Pt denies pain or nausea. INVESTIGATOR WELFARE set up and educated pt on usage, though pt was drowsy and will need to re-educate on INVESTIGATOR WELF[employer] usage. NS running at 60ml/hr. Cpox on with 2L NC 97%. VSS. Continuing care.
--- NOTE | 2016-06-09 01:14 | OP ---
[address] [address] OPERATIVE REPORT PATIENT: SARAH BROWN : 1925 MR#: [id number] ADMIT: 06/07/2016 JOB ID: [id number] CORRECTED REPORT: DATE OF SURGERY: 06/08/2016 PREOPERATIVE DIAGNOSIS(ES): Small bowel obstruction. POSTOPERATIVE DIAGNOSIS(ES): Small bowel obstruction. PROCEDURE PERFORMED: 1. Laparotomy. 2. Open lysis of adhesions. 3. Rectus sheath block with liposomal bupivacaine. SURGEON: Carolee Anderson MD PROCESSING ASSOCIATE: Aditi Roe PA-C A surgical nurse was necessary for retraction and dissection. FINDINGS: 1. Severe matted adhesions predominantly located within the right lower quadrant of the abdomen. 2. Meckel's diverticulum, nonobstructing. HISTORY OF PRESENT ILLNESS: This is an 89-year-old man with a past abdominal surgical history of open appendectomy and open adhesiolysis for small bowel obstruction. He had several admissions related to his small bowel obstruction over the past three years. On this particular admission, he presented with severe distention, leukocytosis, and abdominal pain. Despite adequate NG placement and decompression, he had no improvement in symptoms. For this reason, the decision was made to progress to the operating room. DESCRIPTION OF PROCEDURE: The patient was brought to the operating room and placed in supine position. General endotracheal anesthesia was induced. A warming blanket and SCDs were placed. Antibiotics were infused. A Doyle catheter was placed. The operative field was prepped and draped in sterile fashion. A pause was performed to confirm the correct patient, procedure, and site. He had a previous history of a midline incision, and this was used and extended cephalad; the incision extended from 5 cm below the umbilicus to approximately 10 cm above it. The abdomen was carefully entered to avoid injury to any viscus. Because a transition point had been identified on a CT scan on a previous admission in the right lower quadrant, adhesiolysis began in this location. There were severely matted loops of bowel requiring extremely careful, slow, arduous dissection to free them up. The bowel was matted to itself, the colon, and the abdominal wall. One enterotomy was made in the course of the dissection, which was repaired in two layers with a 3-0 Vicryl stitch and a 3-0 silk Lembert stitch. Multiple small serosal tears were created in the course of the dissection due to the fragile nature of the bowel and the thickness of the overlying adhesions. The dissection took several hours, but ultimately the entire small bowel was freed up from the ligament of Treitz to the terminal ileum. There was an incidental finding of a Meckel's diverticulum approximately 50 cm from the ileocecal valve, and it was not obstructing. There were multiple very tight kinks in the small bowel, predominantly in the terminal ileum, and the tightest of these was 10 cm proximal to the ileocecal valve. This was thought to be the most likely culprit of the obstruction because most of the loops proximal to it were dilated and fluid filled. Once the entire bowel was freed up, hemostasis was obtained and each of the serosal tears was carefully repaired in longitudinal fashion using 3-0 silk interrupted stitches. The visible portion of the colon was also inspected to confirm that there were no adhesions that could cause obstruction and no sign of injury to the colon. The small intestine was then reduced and the omentum was placed over it. The fascia was closed with a running 0 PDS stitch. Skin was closed with a running 4-0 Monocryl stitch after the wound was copiously irrigated and 20 mL of liposomal bupivacaine was injected into the rectus sheath for postoperative analgesia. A sterile dressing was placed. The patient was awakened from anesthesia and taken to the postoperative care unit in good condition. ESTIMATED BLOOD LOSS: 100 mL. SPECIMENS: None. COMPLICATIONS: One enterotomy, repaired in two layers. A Modifier 22 is requested due to the severe nature of adhesions from previous surgery requiring a prolonged dissection requiring many more hours than is usual. Corrected by JONY 09/11/16 at 9:03am Potable Water Treatment Operator statement.
[2016-06-09] MEDS: MeTOProlol 1 mg/mL 5 mL Inj IVPUSH SCH ×4 (05:34→22:27)
--- NOTE | 2016-06-09 05:46 | NUR ---
IV METOPROLOL Per telemetry, SR 83. Cpox on placed as well. Pre-treatment BP was 127/69. 5 mg Metoprolol running piggyback in 30 min.
--- NOTE | 2016-06-09 07:10 | NUR ---
HAND NEURO At about 0500, pt c/o numbness in hands. 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 Pt can feel pressure but not light sensation and also has decreased fine motor movement as evidenced by difficulty picking up oral swab. Pt later remembered he has carpal tunnel syndrome and his normal progression is left hand has greater deficit than right hand. Will pass on to monitor.
--- NOTE | 2016-06-09 07:37 | PCM.PNSURG ---
Subjective Visit Information: Reason for Visit PSBO Surgery/Surgery Date Post-Op Day # Date of Admission: Jun 07, 2016 at 14:15 Hospital Day # Subjective: abd feels better than yesterday, NG in place, has some numbness/difficulty with his hands Objective Objective Awake in bed Abd: dressing dry and intact NGT --> not much output Vital Sign- Last 8 Hours Date Time Temp Pulse Resp B/P Pulse Ox O2 Delivery O2 Flow Rate FiO2 06/09/16 06:13 16 97 06/09/16 05:15 37.0 95 16 127/69 95 Nasal Cannula 1.00 06/09/16 04:04 16 97 06/09/16 03:09 88 06/09/16 02:05 95 16 122/63 98 Room Air 06/09/16 02:05 16 95 06/09/16 01:11 37.1 91 14 119/64 97 06/09/16 00:04 12 96 06/09/16 00:04 37.1 86 12 115/58 96 Nasal Cannula 2.00 06/09/16 00:04 Supplement Oxygen Intake and Output- Last 8 Hour 06/09/16 Cumulative From/Thru 07:00 06/07/16 09:24 - 06/09/16 06:13 Intake Total 474 ml 5245 ml Output Total 475 ml 3239 ml Balance -1 ml 2006 ml Intake Oral 100 ml IV Total 474 ml 5145 ml Output Urine Total 240 ml 1520 ml Gastric Drainage Total 235 ml 1619 ml Estimated Blood Loss 100 ml Result Diagram: 06/08/16 0654 06/08/16 0654 Assessment & Plan Impression POD #1 s/p lysis of adhesions and repair of enterotomy Problems: Plan OOB to chair Incentive spirometer Await bowel function return Continue NGT Check labs today VTE Prophylaxis: Sub-Q Enoxaparin Mralon Turner MD Jun 09, 2016 07:37
[2016-06-09 08:48] LABS: Platelet Count 217 bil/L (150-400)
[2016-06-09 08:53] LABS: BASOPHILS % (AUTO) 0 % (0-3); Mean Corpuscular Hemoglobin 31.7 pg (27.0-35.0); Mean Corpuscular Volume 93.3 fL (81-100)
[2016-06-09 09:36] LABS: EOSINOPHILS % (AUTO) 0 % (0-5); MONOCYTES % (AUTO) 8 % (4-12); NEUTROPHILS % (AUTO) 79 % (40-74)
--- NOTE | 2016-06-09 09:59 | DRSVH ---
PROCEDURE: X-RAY GASTROGRAFIN CHALLENGE, 1 VIEW ABDOMEN INDICATIONS: 89 year-old male with small bowel obstruction. TECHNIQUE: One view of the abdomen acquired, 24 hours status post administration of 100 mL Gastrovie w and 50 mL of water via nasogastric tube. COMPARISON: [facility], CR, XR ABD AP 1VW, 06/08/2016, 13:12. [facility], CR , XR ABD ACUTE SERIES 3VW, 06/07/2016, 10:18. FINDINGS: Surgical changes and devices: Tip of nasogastric tube is situated within the nondistended gastric bod y. Patient is status post right hip arthroplasty. Bowel: There is persistent moderate distention of multiple small bowel loops. There is interval flow of contrast into the nondistended terminal ileum, as well as the ascending colon. There is small resi dual oral contrast within the gastric fundus. Soft tissues: No suspicious abdominal calcifications. Visualized solid organ contours appear normal in size. Bones: No suspicious bony lesions. IMPRESSION: Findings consistent with partial distal small bowel obstruction, with interval flow of or al contrast into nondistended terminal ileum, as well as the proximal colon. Dictated by: Yunior Lou M.D. on 06/09/2016 at 9:57 Approved by: Yunior Lou M.D. on 06/09/2016 at 9:57
[2016-06-09] MEDS: 0.9% Sodium Chloride 1,000 ML IV SCH (13:09)
--- NOTE | 2016-06-09 16:16 | PCM.PNMED ---
Subjective Date of Service Jun 09, 2016 Subjective Underwent laparotomy and open lysis of adhesion on 06/08/16 for continued obstruction and worsening of distention. No flatus or bowel movement Exam Vital Signs Vital Sign - Last Date Time Temp Pulse Resp B/P Pulse Ox O2 Delivery O2 Flow Rate FiO2 06/09/16 13:11 36.9 71 16 122/66 Room Air 06/09/16 10:20 96 06/09/16 09:15 1.00 Intake and Output 06/08/16 06/08/16 06/09/16 Cumulative From/Thru 15:00 23:00 07:00 06/07/16 09:24 - 06/09/16 06:13 Intake Total 2283 ml 474 ml 5245 ml Output Total 1900 ml 475 ml 3239 ml Balance 383 ml -1 ml 2006 ml Intake Oral 100 ml IV Total 2283 ml 474 ml 5145 ml Output Urine Total 950 ml 240 ml 1520 ml Gastric Drainage Total 850 ml 235 ml 1619 ml Estimated Blood Loss 100 ml 100 ml Exam Gen. patient is lying comfortably in hospital bed. NG tube in place, HEENT: Head is normocephalic atraumatic, Pupils equal and reactive, extraocular movements intact, Lungs clear to auscultation bilaterally Heart regular rate and rhythm without murmurs gallops or rubs Abdomen , distended, slightly tender, tympanic all over. Hypoactive BS , midline surgical incision site cleanly dressed Extremities pulses are present dorsalis pedis posterior tibialis and radial. Skin is warm and dry there are no rashes, Psych alert and oriented to person place and time Neuro cranial nerves II through XII are grossly intact Lymph: There is no lymphadenopathy appreciated in the cervical supra infraclavicular regions : no franklin IVs and Medications Medications Reviewed: Medications were reviewed in detail Lab and Diagnostics Result Diagram: 06/09/1682706/09/16827 X-Rays, CTs and MRIs PROCEDURE: X-RAY ACUTE ABDOMINAL SERIES ([id number]) INDICATIONS: 89 year-old male with abdominal pain and nausea. TECHNIQUE: One view chest and two views of the abdomen were acquired. COMPARISON: [facility], CR, XR CHEST 1VW (PORTABLE), 03/27/2015, 5: 15. [facility], CR, XR CHEST 1VW (PORTABLE), 03/27/2015, 2:29. [facility], CR, CHEST 1VW (PORTABLE), 03/17/2014, 22:46. FINDINGS: Surgical changes and devices: Patient is status post right hip arthroplasty. Chest: Lungs are clear. Heart size is normal. No pleural effusions. No pneumoperitoneum. Abdomen: Multiple mildly dilated small bowel loops are present. There is scattered stool within nondistended colon loops. No suspicious calcifications. Visualized solid organ contours appear normal. Bones: No suspicious bony lesions. There is multilevel lumbar spine disc degeneration. IMPRESSION: Findings consistent with evolving mid or distal small bowel obstruction. Dictated by: Yunior Lou M.D. on 06/07/2016 at 10:51 Additional Diagnostics DATE OF SURGERY: 06/08/2016 PREOPERATIVE DIAGNOSIS(ES): Small bowel obstruction. POSTOPERATIVE DIAGNOSIS(ES): Small bowel obstruction. PROCEDURE PERFORMED: 1. Laparotomy. 2. Open lysis of adhesions. 3. Rectus sheath block with liposomal bupivacaine. SURGEON: Carolee Anderson MD PRODUCTION FLOATER: Aditi Roe PA-C FINDINGS: 1. Severe matted adhesions predominantly located within the right lower quadrant of the abdomen. 2. Meckel's diverticulum, nonobstructing. Assessment & Plan 89-year-old gentleman with past medical history of recurrent SBO x6, hypertension, Bilateral carotid stenoses,multivessel CAD, history of laparotomy for small bowel obstruction, history of hernia repair presented with Generalized abdominal pain,Dry heave,2 episodes of diarrhea 1day . 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
[2016-06-10] VITALS (13 sets, daily range): BP systolic 119–159; BP diastolic 71–75; PULSE 76–97; RESP 14–18; O2SAT 92–96
--- NOTE | 2016-06-10 00:17 | NUR ---
NG Problems NG at arrival was not secured, moving freely and pt c/o nausea. Advanced to 55 at 2100, Secured w/ tegaderm and began effectively draining. Problems returned at 0030, called Nakul Kirk RN, NG advanced to 65 and drained 800ml rapidly. Pt reporting significant relief.
[2016-06-10] MEDS: MeTOProlol 1 mg/mL 5 mL Inj IVPUSH SCH ×4 (05:27→22:58)
[2016-06-10] MEDS: 0.9% Sodium Chloride 1,000 ML IV SCH ×3 (05:39→20:04)
[2016-06-10 07:11] LABS: BASOPHILS % (AUTO) 0.1 % (0-3); EOSINOPHILS % (AUTO) 0.2 % (0-5); MONOCYTES % (AUTO) 10.4 % (4-12); Mean Corpuscular Hemoglobin 31.8 pg (27.0-35.0); NEUTROPHILS % (AUTO) 79.4 % (40-74); Platelet Count 248 bil/L (150-400)
--- NOTE | 2016-06-10 09:03 | NUR ---
NG tube/status Dr. Anderson at bedside at 0855. Reviewed NG tube and abdomen. Removed island dressing from abdomen, steri strips intact, no new island dressing placed. Dr. Anderson requested that NG tube remain on low continuous wall suction but that salem sump be cut. RN cut and removed salem sump. Dr. Anderson aware that output was at 400ml at shift change this am and no output since. To monitor. Aware of NG problems overnight. Pain controlled well with BIAS CUTTING MACHINE OPERATOR VERTICAL. To remove franklin and get pt OOB x3 today to walk.
--- NOTE | 2016-06-10 09:54 | PCM.PNSURG ---
Subjective Visit Information: Reason for Visit PSBO Surgery/Surgery Date Post-Op Day # Date of Admission: Jun 07, 2016 at 14:15 Hospital Day # Subjective: Feels better today compared to yesterday, pain control improved. No flatus or BM. WBC 9 HCT 36 PLT 248. BMP wnl. NG output at least 800 per nursing notes. Objective Vital Sign- Last 8 Hours Date Time Temp Pulse Resp B/P Pulse Ox O2 Delivery O2 Flow Rate FiO2 06/10/16 08:38 37.1 84 18 137/75 93 Nasal Cannula 06/10/16 08:15 18 93 06/10/16 06:30 14 96 06/10/16 04:35 36.5 91 16 127/71 92 Nasal Cannula Intake and Output- Last 8 Hour 06/10/16 Cumulative From/Thru 07:00 06/07/16 09:24 - 06/10/16 05:44 Intake Total 5880 ml Output Total 250 ml 3789 ml Balance -250 ml 2091 ml Intake Oral 100 ml IV Total 5780 ml Output Urine Total 250 ml 2070 ml Gastric Drainage Total 1619 ml Estimated Blood Loss 100 ml General: Alert, Oriented X3, Cooperative, No Acute Distress Abdomen: Soft, Appropriately tender, Tympanic Result Diagram: 06/10/16 0635 06/10/16 0635 Assessment & Plan Impression POD#2 open lysis of adhesions for SBO. He has an ileus, which is expected and may last for several days or even greater than one week. Problems: Plan 1. Continue NG. 2. Discontinue franklin. 3. Ambulate TID. 4. If he goes greater than 1 week without a meal, consider TPN depending on clinical signs of return of bowel function. VTE Prophylaxis: Sub-Q Enoxaparin Carolee Anderson MD Jun 10, 2016 09:54
--- NOTE | 2016-06-10 09:55 | NUR ---
Doyle Doyle dc'd w/o complication at 0955. Educated pt on need to void within 4 to 6 hours. To monitor.
--- NOTE | 2016-06-10 10:01 | PROG NOTE ---
[address] [address] PROGRESS NOTE PATIENT: SARAH BROWN : 1925 MR#: [id number] ADMIT: 06/07/2016 JOB ID: [id number] DATE: 06/10/2016 Dictated in error. MTDD
--- NOTE | 2016-06-10 10:50 | NUR ---
O2 Pt intermittently dropping to 89/90% on RA. Encouraged/educated coughing/deep breathing, IS. Placed on 2LNC. Sats in high 90s.
--- NOTE | 2016-06-10 11:24 | NUR ---
Activity Pt up OOB and ambulated with walker in hallway with RN this am at 10. Did 1/2 lap on unit. Tolerated very well. NG placed back on continuous low suction, scd's on, cpox on. Linens changed.
[2016-06-10] MEDS: Ondansetron 2 mg/mL 2 mL Inj IVPUSH PRN (13:20)
--- NOTE | 2016-06-10 13:34 | NUR ---
NUTRITION ASSESSMENT: ASSESS: Pt is an 89yo M admitted for abdominal pain, n/v and diarrhea. He is POD 2 for open lysis of adhesions for SBO. Currently has NGT in place. Per surgery note, pt has developed an ileus and if he continues to be NPOx1 week TPN should be started. Pt has been NPOx3 day. PMHX: recurrent SBO x6, HTN, CAD, laparotomy LABS: Reviewed. Bun 34, Glu 117 MEDS: Reviewed. GI: 0 BM, NGT in place SKIN: Thomas 16 CURRENT WTS: 68.4kg, BMI 25.1kg/m2 DIET: NPOx3 EST. NEEDS: Kcals: 1715-2055kcal/day (25-30kcal/kg) Pro: 80-105g/day (1.2-1.5g/kg) Fluids: 1715-2055ml/day (25-30cc/kg) NUTRITION DIAGNOSIS: 1.) Inadequate oral intake related to decreased ability to consume sufficient energy as evidenced by current NPO status. 2.) Altered GI function related to recurrent SBO as evidence by need for surgery, current ileus and need for bowel rest NUTRITION INTERVENTION: 1.) Advance diet when medically appropriate 2.) If pt continues to be NPO, recommend start TPN at ~50% estimated needs at 150g Dex, 50g AA and 25g lipids to provide 960kcal and 50g pro. Once tolerated, advance TPN to goal of 295g dex, 100g AA and 55g lipids to provide 1953kcal and 100g pro (100% estimated needs). MONITOR / EVAL: NPO, GI, labs, wt, POC, nutrition support?, POC, nutrition status. Will continue to monitor per high nutrition risk guidelines
--- NOTE | 2016-06-10 16:44 | NUR ---
Activity Pt OOB ambulating in hallway at 1345. Able to complete 1 full lap. tolerated well, had to stop a few times to rest and take deep breaths.
--- NOTE | 2016-06-10 17:17 | NUR ---
urine output Pt has only had 75ml urine output since franklin removal this am. Has attempted to urinate at bedside. Bladder scan volume at 1630 0ml. Pt states he does not feel he has full bladder. paged at 1700. Intake only 751 IV, output via NG 1075 this shift. to order fluid replacement 1:1 for NG output on top of NS at 100ml/hr. to put in orders. Addendum: 06/10/16 at 1723 by MONIQUE MCCRAY RN aware of last SBP 157
[2016-06-10] MEDS ORDERED: Lactated Ringer's 1,000 ML IV ONE (17:20)
--- NOTE | 2016-06-10 18:28 | PCM.PNMED ---
Subjective Date of Service Jun 10, 2016 Subjective Continues to significant NG tube output. Continue to have abdominal distention. No flatus or bowel movements. Blood pressure high. Unable to give by mouth medications Exam Vital Signs Vital Sign - Last Date Time Temp Pulse Resp B/P Pulse Ox O2 Delivery O2 Flow Rate FiO2 06/10/16 17:22 Supplement Oxygen 06/10/16 16:34 36.8 97 16 157/75 95 2.00 Intake and Output 06/09/16 06/09/16 06/10/16 Cumulative From/Thru 15:00 23:00 07:00 06/07/16 09:24 - 06/10/16 05:44 Intake Total 635 ml 5880 ml Output Total 300 ml 250 ml 3789 ml Balance 335 ml -250 ml 2091 ml Intake Oral 100 ml IV Total 635 ml 5780 ml Output Urine Total 300 ml 250 ml 2070 ml Gastric Drainage Total 1619 ml Estimated Blood Loss 100 ml Exam Gen. patient is lying comfortably in hospital bed. NG tube in place, HEENT: Head is normocephalic atraumatic, Pupils equal and reactive, extraocular movements intact, Lungs clear to auscultation bilaterally Heart regular rate and rhythm without murmurs gallops or rubs Abdomen , distended, slightly tender, tympanic all over. Hypoactive BS , midline surgical incision site cleanly dressed Extremities pulses are present dorsalis pedis posterior tibialis and radial. Skin is warm and dry there are no rashes, Psych alert and oriented to person place and time Neuro cranial nerves II through XII are grossly intact Lymph: There is no lymphadenopathy appreciated in the cervical supra infraclavicular regions : no franklin IVs and Medications Medications Reviewed: Medications were reviewed in detail Lab and Diagnostics Result Diagram: 06/10/16 0635 06/10/16 0635 X-Rays, CTs and MRIs PROCEDURE: X-RAY ACUTE ABDOMINAL SERIES ([id number]) INDICATIONS: 89 year-old male with abdominal pain and nausea. TECHNIQUE: One view chest and two views of the abdomen were acquired. COMPARISON: [facility], CR, XR CHEST 1VW (PORTABLE), 03/27/2015, 5: 15. [facility], CR, XR CHEST 1VW (PORTABLE), 03/27/2015, 2:29. [facility], CR, CHEST 1VW (PORTABLE), 03/17/2014, 22:46. FINDINGS: Surgical changes and devices: Patient is status post right hip arthroplasty. Chest: Lungs are clear. Heart size is normal. No pleural effusions. No pneumoperitoneum. Abdomen: Multiple mildly dilated small bowel loops are present. There is scattered stool within nondistended colon loops. No suspicious calcifications. Visualized solid organ contours appear normal. Bones: No suspicious bony lesions. There is multilevel lumbar spine disc degeneration. IMPRESSION: Findings consistent with evolving mid or distal small bowel obstruction. Dictated by: Yunior Lou M.D. on 06/07/2016 at 10:51 Additional Diagnostics DATE OF SURGERY: 06/08/2016 PREOPERATIVE DIAGNOSIS(ES): Small bowel obstruction. POSTOPERATIVE DIAGNOSIS(ES): Small bowel obstruction. PROCEDURE PERFORMED: 1. Laparotomy. 2. Open lysis of adhesions. 3. Rectus sheath block with liposomal bupivacaine. SURGEON: Carolee Anderson MD GEOPHYSICAL DATA TECHNICIAN: Aditi Roe PA-C FINDINGS: 1. Severe matted adhesions predominantly located within the right lower quadrant of the abdomen. 2. Meckel's diverticulum, nonobstructing. Assessment & Plan 89-year-old gentleman with past medical history of recurrent SBO x6, hypertension, Bilateral carotid stenoses,multivessel CAD, history of laparotomy for small bowel obstruction, history of hernia repair presented with Generalized abdominal pain,Dry heave,2 episodes of diarrhea 1day . 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 -Surgery Dr Anderson #Initial Leukocytosis, acute, POA -Due to SBO, ,ua negative -Monitor for now, hold off antibiotics # hyponatremia, resolved -Initial Na 127 -due to dehydration -NS at 100ml/h #Diarrhea, resolved # History of CAD, history of carotid stenosis -Metoprolol 5 mg IV every 6 -will resume aspirin and statin once NG tube removed #Hypertension, chronic, stable -will resume home lisinopril once NG tube removed Discussed CODE STATUS,DNR/DNI POA Kinga Sanchez tel [phone] Disposition: Pending hospital course VTE Prophylaxis: Sub-Q Enoxaparin VTE Mechanical Devices: Intermittant Pneumatic CD Sae Dawkins MD Jun 10, 2016 18:28
[2016-06-10] MEDS: Lactated Ringer's 1,000 ML IV SCH (21:19)
[2016-06-11] VITALS (14 sets, daily range): BP systolic 134–180; BP diastolic 74–92; PULSE 65–96; RESP 16–20; O2SAT 92–97
--- NOTE | 2016-06-11 02:36 | NUR ---
NG / Fluid Balance Good flow from NG, large volume, 1000ml at this time. Pt has denied N&V all night, and is much more comfortable. To replace fluid back, LR is running at 160ml/hr, higher than that and pt was having discomfort. Pt has had improved urinary output, there was some dysuria associated with it, but 300ml in one void attempt. Pt then did 1.5 laps around unit, patient kia well.
[2016-06-11] MEDS: Lactated Ringer's 1,000 ML IV SCH ×2 (02:56→08:54)
[2016-06-11] MEDS: MeTOProlol 1 mg/mL 5 mL Inj IVPUSH SCH ×4 (04:41→23:09)
[2016-06-11] MEDS: Diphen-Lido-Mylanta 1:1:1 Susp 15 mL Syringe PO PRN (04:53)
--- NOTE | 2016-06-11 09:38 | NUR ---
BP Bp this am 180/77. MD fernandez paged and notified. LR running at 160ml/hr due to 1:1 replacement for NG output. 150ml NG output at change of shift this am. Will monitor.
--- NOTE | 2016-06-11 11:59 | NUR ---
Rounds 1030 MD again notified of elevated BP with current fluids and NG output. MD requests fluids be stopped at this time and he will review pt chart for possible new orders. Aware of urine output of 75ml yesterday 06/10/15 and 450 ml overnight.
--- NOTE | 2016-06-11 12:00 | NUR ---
Activity Pt up OOB and ambulated in hallway at 1100. Tolerated well and was able to pass flatus. Able to urinate 400ml. Denies pain. MD notified at bedside. Placed back on NC in bed, SCDs, CPOX and NG to continous low suction which resumed draining after reconnected. MD aware of green colored output.
--- NOTE | 2016-06-11 12:16 | PCM.PNSURG ---
Subjective Visit Information: Reason for Visit PSBO Surgery/Surgery Date Post-Op Day # Date of Admission: Jun 07, 2016 at 14:15 Hospital Day # Subjective: Stable overnight. Pain is well controlled. He is still distended, no flatus or BM. NG output >2700mL. Walking in the halls. Objective Vital Sign- Last 8 Hours Date Time Temp Pulse Resp B/P Pulse Ox O2 Delivery O2 Flow Rate FiO2 06/11/16 10:51 93 169/92 06/11/16 10:01 90 06/11/16 08:50 36.8 86 16 180/77 96 Nasal Cannula 3.00 06/11/16 08:50 16 96 06/11/16 08:50 Supplement Oxygen 06/11/16 05:52 16 96 06/11/16 05:00 36.7 65 16 168/78 96 Nasal Cannula 06/11/16 04:33 16 96 Intake and Output- Last 8 Hour 06/11/16 Cumulative From/Thru 07:00 06/07/16 09:24 - 06/11/16 06:08 Intake Total 2412 ml 9043 ml Output Total 2350 ml 9189 ml Balance 62 ml -146 ml Intake Oral 100 ml IV Total 2412 ml 8943 ml Output Urine Total 450 ml 2845 ml Gastric Drainage Total 1900 ml 6244 ml Estimated Blood Loss 100 ml General: Alert, Oriented X3, Cooperative, No Acute Distress Abdomen: Soft, Appropriately tender, Distended, Tympanic, Other (incisions c/d/ i) Result Diagram: 06/10/16 0635 06/10/16 0635 Assessment & Plan Impression POD#3 lysis of adhesions for SBO. Problems: Plan I anticipate prolonged ileus. Continue NG. Appreciate work of the hospitalist team on this patient's care. VTE Prophylaxis: Sub-Q Enoxaparin Carolee Anderson MD Jun 11, 2016 12:16
--- NOTE | 2016-06-11 14:48 | PCM.PNMED ---
Subjective Date of Service Jun 11, 2016 Subjective Reports some flatus but no BM. Denies any other new issues/complaints Exam Vital Signs Vital Sign - Last Date Time Temp Pulse Resp B/P Pulse Ox O2 Delivery O2 Flow Rate FiO2 06/11/16 13:30 36.8 83 16 172/86 96 Nasal Cannula 2.00 Intake and Output 06/10/16 06/10/16 06/11/16 Cumulative From/Thru 15:00 23:00 07:00 06/07/16 09:24 - 06/11/16 06:08 Intake Total 751 ml 2412 ml 9043 ml Output Total 550 ml 1500 ml 2350 ml 9189 ml Balance -550 ml -749 ml 62 ml -146 ml Intake Oral 100 ml IV Total 751 ml 2412 ml 8943 ml Output Urine Total 325 ml 450 ml 2845 ml Gastric Drainage Total 550 ml 1175 ml 1900 ml 6244 ml Estimated Blood Loss 100 ml General: Alert, Cooperative, No Acute Distress Eyes: Scleral Anicteric Mouth: Mucous Membr Moist/[place] Neck: Supple Chest & Lungs: Chest Wall Normal, Clear to auscultation & percussion Cardiovascular: Regular Rate/Rhythm Abdomen: Non-tender, Non-distended, Other (decreased bowel tones. NG tube in place with green bile drain) Extremities: No cyanosis/clubbing/edma bilat Neurological: Grossly Neurologically Intact, Normal Speech IVs and Medications Medications Reviewed: Medications were reviewed in detail Lab and Diagnostics Result Diagram: 06/10/1663406/10/16 0635 X-Rays, CTs and MRIs PROCEDURE: X-RAY ACUTE ABDOMINAL SERIES ([id number]) INDICATIONS: 89 year-old male with abdominal pain and nausea. TECHNIQUE: One view chest and two views of the abdomen were acquired. COMPARISON: [facility], CR, XR CHEST 1VW (PORTABLE), 03/27/2015, 5: 15. [facility], CR, XR CHEST 1VW (PORTABLE), 03/27/2015, 2:29. [facility], CR, CHEST 1VW (PORTABLE), 03/17/2014, 22:46. FINDINGS: Surgical changes and devices: Patient is status post right hip arthroplasty. Chest: Lungs are clear. Heart size is normal. No pleural effusions. No pneumoperitoneum. Abdomen: Multiple mildly dilated small bowel loops are present. There is scattered stool within nondistended colon loops. No suspicious calcifications. Visualized solid organ contours appear normal. Bones: No suspicious bony lesions. There is multilevel lumbar spine disc degeneration. IMPRESSION: Findings consistent with evolving mid or distal small bowel obstruction. Dictated by: Yunior Lou M.D. on 06/07/2016 at 10:51 Additional Diagnostics DATE OF SURGERY: 06/08/2016 PREOPERATIVE DIAGNOSIS(ES): Small bowel obstruction. POSTOPERATIVE DIAGNOSIS(ES): Small bowel obstruction. PROCEDURE PERFORMED: 1. Laparotomy. 2. Open lysis of adhesions. 3. Rectus sheath block with liposomal bupivacaine. SURGEON: Carolee Anderson MD SUPPLY CHAIN ASSOCIATE: Aditi Roe PA-C FINDINGS: 1. Severe matted adhesions predominantly located within the right lower quadrant of the abdomen. 2. Meckel's diverticulum, nonobstructing. Assessment & Plan 89-year-old gentleman with past medical history of recurrent SBO x 6, hypertension, Bilateral carotid stenoses, multivessel CAD, history of laparotomy for small bowel obstruction, history of hernia repair presented with generalized abdominal pain, Dry heave, 2 episodes of diarrhea. # Small bowel obstruction, acute, POA - s/p Laparotomy and Open lysis of adhesions on 06/08/16 - appreciate surgery consult. will f/u w/ recs - post-op ileus, ongoing - Continue NG tube suction and NPO - c/w supportive care - will consider TPN if ileus persist in next several days and in consultation with surgery # Initial Leukocytosis, acute, POA. reactive to presenting stress. Resolved. # Acute hyponatremia, POA. Resolved - due to dehydration # History of CAD, history of carotid stenosis - Metoprolol 5 mg IV every 6 - Resume aspirin and statin once NG tube removed # Hypertension, chronic, stable - Resume home lisinopril once NG tube removed Dispo: 3-4 days VTE Prophylaxis: Sub-Q Enoxaparin VTE Mechanical Devices: Intermittant Pneumatic CD Time spent 30 min Dagoberto Michelle Jun 11, 2016 14:48
[2016-06-11] MEDS ORDERED: hydrALAZINE 20 mg/mL Inj IV PRN (14:50)
--- NOTE | 2016-06-11 16:08 | NUR ---
Activity 1345 pt ambulated around 1/2 of unit with walker. Tolerated well. Teeth brushed. Reconnected to NG, scd's, O2 at 2L, CPOX.
--- NOTE | 2016-06-11 18:00 | NUR ---
Tele Pt noted to have trend of PVCs/bigeminy for a few minutes with IV metoprolol, per ekg monitor tech. Pt asymptomatic. Will continue to monitor.
[2016-06-12] VITALS (14 sets, daily range): BP systolic 121–160; BP diastolic 62–89; PULSE 61–96; RESP 14–20; O2SAT 94–96
[2016-06-12] MEDS: MeTOProlol 1 mg/mL 5 mL Inj IVPUSH SCH ×4 (05:00→22:19)
--- NOTE | 2016-06-12 05:44 | NUR ---
NG Tube/Activity Pt c/o of nausea, NG tube was checked and found to not be suctioning, increased suction and able to retrieve 1,000 mL of green bile. Approximately 20 mins later pt c/o again of nausea. NG tube found to be clogged. 15mL of air pushed into tube and cleared obstruction, NG able to suction again and pt stated nausea was better. Pt ambulated in [place] x1 this shift. VSS and Tele SR 90's PVC's and PAC's.
[2016-06-12 08:27] LABS: BASOPHILS % (AUTO) 0.1 % (0-3); EOSINOPHILS % (AUTO) 0.7 % (0-5); MONOCYTES % (AUTO) 9.7 % (4-12); Mean Corpuscular Hemoglobin 31.7 pg (27.0-35.0); Mean Corpuscular Volume 96.8 fL (81-100); NEUTROPHILS % (AUTO) 77.3 % (40-74); Platelet Count 308 bil/L (150-400)
[2016-06-12 08:42] LABS: INR 1.16 ratio
[2016-06-12 08:55] LABS: Magnesium 2.4 mg/dL (1.6-2.6)
--- NOTE | 2016-06-12 09:15 | PCM.PNSURG ---
Subjective Visit Information: Reason for Visit PSBO Surgery/Surgery Date Post-Op Day # Date of Admission: Jun 07, 2016 at 14:15 Hospital Day # Subjective: Stable overnight, some hallucinations, NG had to be flushed in order to provide suction and prevent nausea. Approximately 3400mL NG output, clear/green. RN reports one episode of flatus yesterday. No BM. No additional flatus and he is still distended. Objective Vital Sign- Last 8 Hours Date Time Temp Pulse Resp B/P Pulse Ox O2 Delivery O2 Flow Rate FiO2 06/12/16 08:26 36.3 80 160/86 94 Nasal Cannula 2.00 06/12/16 07:13 20 94 06/12/16 06:23 71 06/12/16 04:51 20 94 06/12/16 04:51 36.8 96 20 121/62 94 Nasal Cannula 2.00 Intake and Output- Last 8 Hour 06/12/16 Cumulative From/Thru 07:00 06/07/16 09:24 - 06/12/16 06:10 Intake Total 0 ml 9493 ml Output Total 1400 ml 94224 ml Balance -1400 ml -2946 ml Intake Oral 0 ml 100 ml IV Total 9393 ml Output Urine Total 250 ml 3395 ml Gastric Drainage Total 1150 ml 8944 ml Estimated Blood Loss 100 ml # Bowel Movements 0 0 General: Alert, Cooperative, No Acute Distress Abdomen: Soft, Distended, Tympanic Result Diagram: 06/12/16 0758 06/12/16 0758 Assessment & Plan Impression POD 4 lysis of adhesions, AROBF. Problems: Plan -Continue NG -I prescribed a suppository -Continue ambulation TID -Recommend electrolyte repletion given high NG output. VTE Prophylaxis: Sub-Q Enoxaparin Carolee Anderson MD Jun 12, 2016 09:15
--- NOTE | 2016-06-12 09:16 | NUR ---
Labs MD fernandez paged at 0915 and notified of Na 149, K 2.9, CO2 40, BUN 38. Also notified that pt was experiencing hallucinations overnight. Addendum: 06/12/16 at 0923 by MONIQUE MCCRAY RN has made changes to fluids and has ordered K replacement Addendum: 06/12/16 at 0936 by MONIQUE MCCRAY RN Pharmacy notified of new orders, to deliver Addendum: 06/12/16 at 0946 by MONIQUE SHAZIA RN tele also notified at 3695
[2016-06-12] MEDS ORDERED: KCl 40 mEq/D5W 500 mL 40 MEQ in IV Premix 500 EACH IV ONE (09:20)
--- NOTE | 2016-06-12 11:25 | NUR ---
Code stroke called at 1045 while pt ambulating in [place]. Experienced weakness and unable to continue ambulating as well as slurred speech present. 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 Assessed at bedside by stroke team. BS 130. BP 165/88, 118 tacyhcardia per playground monitor, 92% on 2L NC. Neurologically intact, per stroke team. No CT ordered. Pt stable in bed. L AC IV restarted. Addendum: 06/12/16 at 1329 by MONIQUE MCCRAY RN MD aware and at bedside at time of code stroke. No new orders. No CT.
[2016-06-12] MEDS: Ondansetron 2 mg/mL 2 mL Inj IVPUSH PRN (12:57)
--- NOTE | 2016-06-12 13:20 | NUR ---
NUTRITION FOLLOW-UP ASSESS: Pt is an 89yo M admitted for abdominal pain, n/v and diarrhea. He is POD 4 for open lysis of adhesions for SBO. NG output continues to be high. Pt is passing flatus but no BM. Suppository to be given. Code stroke called on pt today. NPO x5 days. PMHX: recurrent SBO x6, HTN, CAD, laparotomy LABS: Reviewed. Na 149, K 2.9, CO2 40, BUN 38, Glu 115 MEDS: Reviewed. GI: 0 BM, NGT 3450 ml 1/4 SKIN: Thomas 18 CURRENT WTS: 68.4kg, BMI 25.1kg/m2 DIET: NPOx5 EST. NEEDS: Kcals: 1715-2055kcal/day (25-30kcal/kg) Pro: 80-105g/day (1.2-1.5g/kg) Fluids: 1715-2055ml/day (25-30cc/kg) NUTRITION DIAGNOSIS: 1.) Inadequate oral intake related to decreased ability to consume sufficient energy as evidenced by current NPO status.---PERSISTS 2.) Altered GI function related to recurrent SBO as evidence by need for surgery, current ileus and need for bowel rest---PERSISTS NUTRITION INTERVENTION: 1.) Advance diet when medically appropriate 2.) If pt continues to be NPO for 1-2 more days, recommend start TPN at ~50% estimated needs at 150g Dex, 50g AA and 25g lipids to provide 960kcal and 50g pro. Once tolerated, advance TPN to goal of 295g dex, 100g AA and 55g lipids to provide 1953kcal and 100g pro (100% estimated needs). MONITOR / EVAL: NPO, GI, labs, wt, POC, nutrition support?, POC, nutrition status. Will continue to monitor per high nutrition risk guidelines
--- NOTE | 2016-06-12 13:27 | NUR ---
NG NG flushed with 15ml of water at 1118. No resistance met and bubbling heard on ausculation of abdomen with instillation of water. NG then drained >200ml of green output with relief of some prior nausea. To monitor.
--- NOTE | 2016-06-12 13:30 | NUR ---
Nausea Pt continues to have intermittent nausea. MD at bedside at 1300 and notified. Rickie sargent. To continue to monitor. Addendum: 06/12/16 at 1408 by MONIQUE MCCRAY RN MD also aware that pt has been NPO since admit 06/07 and may need to soon consider TPN. Nutrition has already seen pt.
--- NOTE | 2016-06-12 15:37 | NUR ---
MIR Pt up to bathroom and able to have very small formed and soft bowel movement at 1500. Notified Dr. Anderson. To continue NG suction and MD to assess in the am. 900ml out of NG so far today. Addendum: 06/12/16 at 1800 by MONIQUE MCCRAY RN No advancement of diet at this time
--- NOTE | 2016-06-12 16:25 | PCM.PNMED ---
Subjective Date of Service Jun 12, 2016 Subjective was complaining of not feeling well and lightheadedness earlier this morning after walking around with nursing. Currently says feels a lot better. Exam Vital Signs Vital Sign - Last Date Time Temp Pulse Resp B/P Pulse Ox O2 Delivery O2 Flow Rate FiO2 06/12/16 13:46 20 94 06/12/16 13:17 36.5 94 145/89 Nasal Cannula 2.00 Intake and Output 06/11/16 06/11/16 06/12/16 Cumulative From/Thru 15:00 23:00 07:00 06/07/16 09:24 - 06/12/16 06:10 Intake Total 450 ml 0 ml 9493 ml Output Total 750 ml 1100 ml 1400 ml 52554 ml Balance -750 ml -650 ml -1400 ml -2946 ml Intake Oral 0 ml 100 ml IV Total 450 ml 9393 ml Output Urine Total 300 ml 250 ml 3395 ml Gastric Drainage Total 750 ml 800 ml 1150 ml 8944 ml Estimated Blood Loss 100 ml # Bowel Movements 0 0 Exam General: Alert, Cooperative, No Acute Distress Eyes: Scleral Anicteric Mouth: Mucous Membr Moist/[place] Neck: Supple Chest & Lungs: Chest Wall Normal, Clear to auscultation bilat Cardiovascular: Regular Rate/Rhythm Abdomen: Non-tender, Non-distended, Other (decreased bowel tones. NG tube in place with green bile drain) Extremities: No cyanosis/clubbing/edema bilat Neurological: Grossly Neurologically Intact, Normal Speech. CN II-XII grossly intact. IVs and Medications Medications Reviewed: Medications were reviewed in detail Lab and Diagnostics Result Diagram: 06/12/16 0758 06/12/16 0758 X-Rays, CTs and MRIs PROCEDURE: X-RAY ACUTE ABDOMINAL SERIES ([id number]) INDICATIONS: 89 year-old male with abdominal pain and nausea. TECHNIQUE: One view chest and two views of the abdomen were acquired. COMPARISON: [facility], CR, XR CHEST 1VW (PORTABLE), 03/27/2015, 5: 15. [facility], CR, XR CHEST 1VW (PORTABLE), 03/27/2015, 2:29. [facility], CR, CHEST 1VW (PORTABLE), 03/17/2014, 22:46. FINDINGS: Surgical changes and devices: Patient is status post right hip arthroplasty. Chest: Lungs are clear. Heart size is normal. No pleural effusions. No pneumoperitoneum. Abdomen: Multiple mildly dilated small bowel loops are present. There is scattered stool within nondistended colon loops. No suspicious calcifications. Visualized solid organ contours appear normal. Bones: No suspicious bony lesions. There is multilevel lumbar spine disc degeneration. IMPRESSION: Findings consistent with evolving mid or distal small bowel obstruction. Dictated by: Yunior Lou M.D. on 06/07/2016 at 10:51 Additional Diagnostics DATE OF SURGERY: 06/08/2016 PREOPERATIVE DIAGNOSIS(ES): Small bowel obstruction. POSTOPERATIVE DIAGNOSIS(ES): Small bowel obstruction. PROCEDURE PERFORMED: 1. Laparotomy. 2. Open lysis of adhesions. 3. Rectus sheath block with liposomal bupivacaine. SURGEON: Carolee Anderson MD BROOCH MAKER NOVELTY: Aditi Roe PA-C FINDINGS: 1. Severe matted adhesions predominantly located within the right lower quadrant of the abdomen. 2. Meckel's diverticulum, nonobstructing. Assessment & Plan 89-year-old gentleman with past medical history of recurrent SBO x 6, hypertension, Bilateral carotid stenoses, multivessel CAD, history of laparotomy for small bowel obstruction, history of hernia repair presented with generalized abdominal pain, Dry heave, 2 episodes of diarrhea. # Small bowel obstruction, acute, POA - s/p Laparotomy and Open lysis of adhesions on 06/08/16 - appreciate surgery consult. will f/u w/ recs - post-op ileus, ongoing but seems to be improving - Continue NG tube suction and NPO - c/w supportive care - further advancing of diet per surgery recs # Initial Leukocytosis, acute, POA. reactive to presenting stress. Resolved. # Acute hypokalemia - replete and f/u # Acute hyponatremia, POA. Resolved with IVF - due to dehydration # Now acute hypernatremia. - change NS to 1/2NS and f/u repeat labs in am # History of CAD, history of carotid stenosis - Metoprolol 5 mg IV every 6 - Resume aspirin and statin once NG tube removed # Hypertension, chronic, stable - Resume home lisinopril once NG tube removed Dispo: 2-3 days VTE Prophylaxis: Sub-Q Enoxaparin VTE Mechanical Devices: Intermittant Pneumatic CD Time spent 40 min Dagoberto Michelle Jun 12, 2016 16:25
[2016-06-12] MEDS: D5 0.45% NaCl + KCl 20 mEq/L 1,000 ML IV SCH ×2 (16:55→19:45)
--- NOTE | 2016-06-12 18:00 | NUR ---
Pain/output notified that pt used GRADUATE STUDIES DEAN once today. October dc. Notified of urine output 300ml. No new orders.
[2016-06-13] VITALS (12 sets, daily range): BP systolic 100–126; BP diastolic 50–62; PULSE 67–91; RESP 14–20; O2SAT 88–95
--- NOTE | 2016-06-13 03:02 | NUR ---
RESPIRATORY P: Continuous pulse oximetry alarmed multiple times throughout the night for low O2 dropping to the mid 80s. I: Encouraged use of IS and encouraged to cough and deep breathe. Replaced NC with oxymask as pt seems to breathe through his mouth while sleeping. E: Pt agreed and complied, but stated that it is hard to take deep breaths r/t abdominal incision. WIRE STRETCHER still set up but pt uses infrequently. Continuing care.
[2016-06-13] MEDS: MeTOProlol 1 mg/mL 5 mL Inj IVPUSH SCH ×4 (04:29→22:35)
[2016-06-13] MEDS: D5 0.45% NaCl + KCl 20 mEq/L 1,000 ML IV SCH ×2 (04:36→15:53)
--- NOTE | 2016-06-13 08:58 | NUR ---
BM from 06/12/15 Charted BM from 06/12/15, even though this RN was not present, the BM was not charted in the I/O flowsheet, was only charted in a note and Dr. Anderson asked that all I/O's are charted in proper flowsheet, not just in the notes. Addendum: 06/13/16 at 0900 by NICHOLAS BENAVIDEZ RN Amended: Links added.
--- NOTE | 2016-06-13 10:45 | NUR ---
Morning Rounds Staffed patient's case with case management, MD not present at this time. Case Management asked about TPN, I stated Dr. Anderson stated she was going to recommend TPN, which she stated while at patient's bedside earlier this morning, but no order has been placed. I also mentioned that patient has not been using PNEUDRAULIC SYSTEMS MECHANIC pump, will ask doctor about discontinuing the pump.
--- NOTE | 2016-06-13 10:54 | NUR ---
HAND SEWER SHOES pump Contacted Dr. Palomino with the following cook page: Patient has not used HAND SEWER SHOES pump in 24 hours. Please advise on discontinuing HAND SEWER SHOES. Thank you. Olya HARRIS
--- NOTE | 2016-06-13 11:46 | NUR ---
NUTRITION FOLLOW-UP ASSESS: Pt is an 89yo M admitted for abdominal pain, n/v and diarrhea. He is POD 5 for open lysis of adhesions for SBO. NG output continues to be high. Pt had a small BM 06/12/16. TPN order was placed this AM. Pharmacy is aware of macronutrient recommendations. Pt has been NPOx6 days so is at risk for re-feeding. Mg and phos to be checked. Will monitor labs closely. Pt has not had a new wt since admit. PMHX: recurrent SBO x6, HTN, CAD, laparotomy LABS: Reviewed. Na 149, K 3.1, Cl 93, Bun 38, Glu 161 MEDS: Reviewed. GI: BMx1 06/12, NGT 2650 ml 06/12 SKIN: Thomas 14 CURRENT WTS: 68.4kg, BMI 25.1kg/m2 DIET: NPOx6 EST. NEEDS: Kcals: 1715-2055kcal/day (25-30kcal/kg) Pro: 80-105g/day (1.2-1.5g/kg) Fluids: 1715-2055ml/day (25-30cc/kg) NUTRITION DIAGNOSIS: 1.) Inadequate oral intake related to decreased ability to consume sufficient energy as evidenced by current NPO status.---PERSISTS 2.) Altered GI function related to recurrent SBO as evidence by need for surgery, current ileus and need for bowel rest---PERSISTS NUTRITION INTERVENTION: 1.) Recommend start TPN at ~50% estimated needs at 150g Dex, 50g AA and 25g lipids to provide 960kcal and 50g pro. Once tolerated, advance TPN to goal of 295g dex, 100g AA and 55g lipids to provide 1953kcal and 100g pro (100% estimated needs). 2.) Will request new wt. 3.) Advance diet when medically appropriate MONITOR / EVAL:NPO, TPN start/kia, GI, labs, wt, POC, nutrition status. Will continue to monitor per high nutrition risk guidelines Addendum: 06/14/16 at [address] TPN withheld yesterday due to access issues. PICC ordered to be placed today; pharmacy following.
[2016-06-13] MEDS: Ondansetron 2 mg/mL 2 mL Inj IVPUSH PRN (12:22)
--- NOTE | 2016-06-13 12:25 | NUR ---
Oxygen Dr. Anderson had questioned why patient had oxygen on earlier, as she is worried about pneumonia. Oxygen has been off for about 4 hours now, but patient continuously desated into the mid to low 80's, so 1L oxy mask placed on patient to keep sat around 92%.
--- NOTE | 2016-06-13 14:34 | PCM.PNMED ---
Subjective Date of Service Jun 13, 2016 Subjective Patient is alert oriented 3, no distress. She is lethargic. Denies any nausea or vomiting. No abdominal pain. Some flatus. No bowel movement. No chest pain, palpitations or dyspnea. Exam Vital Signs Vital Sign - Last Date Time Temp Pulse Resp B/P Pulse Ox O2 Delivery O2 Flow Rate FiO2 06/13/16 12:51 100/50 06/13/16 12:10 20 92 06/13/16 11:39 36.7 91 Room Air 06/13/16 07:53 3.00 Intake and Output 06/12/16 06/12/16 06/13/16 Cumulative From/Thru 15:00 23:00 07:00 06/07/16 09:24 - 06/13/16 05:41 Intake Total 957 ml 636 ml 1177 ml 94711 ml Output Total 1800 ml 725 ml 52379 ml Balance 957 ml -1164 ml 452 ml -2701 ml Intake Oral 100 ml IV Total 957 ml 636 ml 1177 ml 49872 ml Output Urine Total 300 ml 325 ml 4020 ml Gastric Drainage Total 1500 ml 400 ml 81831 ml Estimated Blood Loss 100 ml # Bowel Movements 1 1 Exam Directed 3, listless but fluent speech. No distress. Normal scalp Anicteric sclerae. Neck supple Lungs are clear, normal effort. Heart is regular without murmur gallop or rub Abdomen soft nondistended without focal tenderness. Extremities are free of edema good pedal pulses. Skin free of rash or lesions Nasogastric tube is in place and to suction. IVs and Medications Medications Reviewed: Medications were reviewed in detail Lab and Diagnostics Result Diagram: 06/12/16 0758 06/13/16 0545 X-Rays, CTs and MRIs PROCEDURE: X-RAY ACUTE ABDOMINAL SERIES ([id number]) INDICATIONS: 89 year-old male with abdominal pain and nausea. TECHNIQUE: One view chest and two views of the abdomen were acquired. COMPARISON: [facility], CR, XR CHEST 1VW (PORTABLE), 03/27/2015, 5: 15. [facility], CR, XR CHEST 1VW (PORTABLE), 03/27/2015, 2:29. [facility], CR, CHEST 1VW (PORTABLE), 03/17/2014, 22:46. FINDINGS: Surgical changes and devices: Patient is status post right hip arthroplasty. Chest: Lungs are clear. Heart size is normal. No pleural effusions. No pneumoperitoneum. Abdomen: Multiple mildly dilated small bowel loops are present. There is scattered stool within nondistended colon loops. No suspicious calcifications. Visualized solid organ contours appear normal. Bones: No suspicious bony lesions. There is multilevel lumbar spine disc degeneration. IMPRESSION: Findings consistent with evolving mid or distal small bowel obstruction. Dictated by: Yunior Lou M.D. on 06/07/2016 at 10:51 Additional Diagnostics DATE OF SURGERY: 06/08/2016 PREOPERATIVE DIAGNOSIS(ES): Small bowel obstruction. POSTOPERATIVE DIAGNOSIS(ES): Small bowel obstruction. PROCEDURE PERFORMED: 1. Laparotomy. 2. Open lysis of adhesions. 3. Rectus sheath block with liposomal bupivacaine. SURGEON: Carolee Anderson MD BUSINESS PLANNING ANALYST: Aditi Roe PA-C FINDINGS: 1. Severe matted adhesions predominantly located within the right lower quadrant of the abdomen. 2. Meckel's diverticulum, nonobstructing. Assessment & Plan 89-year-old gentleman with past medical history of recurrent SBO x 6, hypertension, Bilateral carotid stenoses, multivessel CAD, history of laparotomy for small bowel obstruction, history of hernia repair presented with generalized abdominal pain, Dry heave, 2 episodes of diarrhea. 1. Small bowel obstruction, acute, POA - s/p Laparotomy and Open lysis of adhesions on 06/08/16 - appreciate surgery consult. will f/u w/ recs - post-op ileus, ongoing but seems to be improving - Continue NG tube suction and NPO - c/w supportive care - further advancing of diet per surgery recs There is no clinical change in his status today. We will continue with the current management plan. 2. Initial Leukocytosis, acute, POA. reactive to presenting stress. Resolved. 3. Acute hypokalemia - replete and f/u again today. 4. Acute hyponatremia, POA. Resolved with IVF - due to dehydration 5. Now acute hypernatremia. - change NS to 1/2NS and f/u repeat labs in am 6. History of CAD, history of carotid stenosis - Metoprolol 5 mg IV every 6 - Resume aspirin and statin once NG tube removed 8. Hypertension, chronic, stable - Resume home lisinopril once NG tube removed Dispo: Pending his clinical progress and resolution of ileus. Will pursue physical therapy as well as he is getting weak. Pain Evaluation: Adequate Pain Control VTE Prophylaxis: Sub-Q Enoxaparin VTE Mechanical Devices: Intermittant Pneumatic CD Resuscitation Status: DNR/DNI:Do Not Resuscitate/Intubate Time spent 25 minutes John Palomino MD Jun 13, 2016 14:34
[2016-06-13] MEDS ORDERED: KCl 40 mEq/D5W 500 mL 40 MEQ in IV Premix 1 EACH IV ONE (14:35)
--- NOTE | 2016-06-13 15:10 | PCM.CONPHA ---
Subjective Date of Service: Jun 13, 2016 TPN Reason for Pharmacy Consult: TPN Management Assessment/Plan Assessment/Plan Initial TPN as follows: PARENTERAL NUTRITION ORDERS 1 Standard Hang Time: 2100 Substrates Total kcal: 960 AMINO ACIDS 50 g DEXTROSE 150 g Total Volume (mL): 1000 LIPIDS 25 g Sterile Water for Injection QS mL To Infuse Over (hrs): 24 Total Volume 1000 mL At at a rate of (mL/hr): 42 Additives Sodium Chloride 40 mEq "typical" daily requirements Sodium Acetate mEq Sodium 50-120mEq Potassium Chloride 40 mEq Potassium 60-120mEq Potassium Phosphate 20 mEq Phosphate 20-40mEq Calcium Gluconate 9 mEq Magnesium 8-32mEq Magnesium Sulfate 12 mEq Calcium 9-22mEq Acetate* 80-120mEq Chloride* 80-120mEq Regular Insulin units *Depending on acid-base status Famotidine mg Multivitamins 1 std dose Insulin Regimen Trace Elements 1 std dose none Thiamine mg Regular Low Intensity Subcut Folic Acid mg Regular Medium Intensity Subcut Ascorbic Acid mg Regular High Intensity Subcut Regular Insulin Infusion Brennon Styles Jun 13, 2016 15:10
--- NOTE | 2016-06-13 15:59 | PCM.PNSURG ---
Subjective Visit Information: Reason for Visit PSBO Surgery/Surgery Date Post-Op Day # Date of Admission: Jun 07, 2016 at 14:15 Hospital Day # Subjective: Had a BM yesterday and some flatus but still distended and had >2L NG output, which is green and thin. He is rarely using the [address]HW[address] TRAFFIC CONTROL TECHNICIAN at this point. He is still distended and tympanic. Objective Vital Sign- Last 8 Hours Date Time Temp Pulse Resp B/P Pulse Ox O2 Delivery O2 Flow Rate FiO2 06/13/16 12:51 100/50 06/13/16 12:10 20 92 06/13/16 11:39 36.7 91 20 126/61 88 Room Air 06/13/16 08:00 Supplement Oxygen 06/13/16 08:00 84 06/13/16 08:00 16 95 Intake and Output- Last 8 Hour 06/13/16 Cumulative From/Thru 06:59 06/07/16 09:24 - 06/13/16 05:41 Intake Total 1177 ml 01782 ml Output Total 725 ml 66823 ml Balance 452 ml -2701 ml Intake Oral 100 ml IV Total 1177 ml 45667 ml Output Urine Total 325 ml 4020 ml Gastric Drainage Total 400 ml 30363 ml Estimated Blood Loss 100 ml # Bowel Movements 1 General: Alert, Cooperative, No Acute Distress Abdomen: Soft, Distended, Tympanic, Other (incision is c/d/i) Result Diagram: 06/12/16 0758 06/13/16 0545 Assessment & Plan Impression 89yom POD#5 lysis of adhesions for small bowel obstruction. Problems: Plan He still has an ileus; even though yesterday he had a BM, he still has high NG output and he is still distended; I would continue NG today. Tomorrow will be the 8th day of this admission, and if he is still as distended with similar NG output then I would start TPN. Resuscitation Status: DNR/DNI:Do Not Resuscitate/Intubate Carolee Anderson MD Jun 13, 2016 15:59
--- NOTE | 2016-06-13 17:11 | NUR ---
Metoprolol Held Patient is scheduled to have Metoprolol 5mg q 6 h, but current schedule was held due to patient's HR 67 and SBP 125.
--- NOTE | 2016-06-13 17:48 | NUR ---
Social Work: Continued Discharge Planning D: Pt discussed in am rounds. Pt is not medically stable for discharge at this time. Pt continues to be 1 person assist with ambulation. MD is ordering PT evaluation as pt appears to be getting weaker. Pt continues to be followed by surgery for progression and resolution of ileus. A: Pt who is previously living alone, in [place] with family nearby. P: Evolving; PRODUCTION SUPERINTENDENT HYDRO to continue to follow and determine d/c needs pending clinical course and PT recommendations. QEU Grace
[2016-06-13] MEDS: TPN Per Pharmacist XX SCH (21:00)
[2016-06-13] MEDS: Total Parenteral Nutrition 1 BAG IV SCH (21:00)
--- NOTE | 2016-06-13 22:19 | NUR ---
TPN Patient was ordered to start TPN tonight at 2100, Patient does not have a central line. paged.
[2016-06-14] VITALS (9 sets, daily range): BP systolic 108–131; BP diastolic 65–74; PULSE 59–85; RESP 17–19; O2SAT 91–96
[2016-06-14] MEDS: MeTOProlol 1 mg/mL 5 mL Inj IVPUSH SCH ×4 (04:35→23:14)
[2016-06-14] MEDS: D5 0.45% NaCl + KCl 20 mEq/L 1,000 ML IV SCH ×2 (05:47→21:10)
[2016-06-14 08:10] LABS: Mean Corpuscular Hemoglobin 31.6 pg (27.0-35.0); Mean Corpuscular Volume 99.5 fL (81-100)
[2016-06-14 08:39] LABS: Magnesium 2.1 mg/dL (1.6-2.6); Phosphorus 2.5 mg/dL (2.5-4.9)
[2016-06-14] MEDS ORDERED: Sodium Chloride LOK Flush 10 mL Syringe IVFLUSH PRN ×2 (08:40)
--- NOTE | 2016-06-14 09:22 | PCM.PHAPRO ---
Progress TPN Management: -89 yo male POD # 6 lysis of adhesions, sbo, npo x 7 days -awaiting PICC placement today and will check prior to releasing TPN to CAPS to mix -this evening will be Day 1 of TPN infusion pending central line -macronutrients per dietary recommendation include AA 50gm, Dextrose 150gm, Lipids 25gm -Na content reflecting ~ 1/2 NS in base solution and contacting hospitalist regarding the continuation of peripheral IV Plan: formula for this evening on 06/14/16: PARENTERAL NUTRITION ORDERS 1 - Standard Hang Time: 2100 Substrates Total kcal: 960 AMINO ACIDS 50 g DEXTROSE 150 g Total Volume (mL): 1000 LIPIDS 25 g Sterile Water for Injection QS mL To Infuse Over (hrs): 24 Total Volume 1000 mL At at a rate of (mL/hr): 42 Additives Sodium Chloride 60 mEq "typical" daily requirements Sodium Acetate mEq Sodium 50-120mEq Potassium Chloride 40 mEq Potassium 60-120mEq Potassium Phosphate 30 mEq Phosphate 20-40mEq Calcium Gluconate 9 mEq Magnesium 8-32mEq Magnesium Sulfate 12 mEq Calcium 9-22mEq Acetate* 80-120mEq Chloride* 80-120mEq Regular Insulin units *Depending on acid-base status Famotidine mg Multivitamins 1 std dose Insulin Regimen Trace Elements 1 std dose none Thiamine mg Regular Low Intensity Subcut Folic Acid mg Regular Medium Intensity Subcut Ascorbic Acid mg Regular High Intensity Subcut Regular Insulin Infusion Other: Lorene Brooks [facility] Jun 14, 2016 09:22
--- NOTE | 2016-06-14 10:44 | PROG NOTE ---
[address] [address] PROGRESS NOTE PATIENT: SARAH BROWN : 1925 MR#: [id number] ADMIT: 06/07/2016 JOB ID: [id number] DATE: 06/14/2016 SUBJECTIVE: Seen for Dr. Anderson. He is now postop day six from his open lysis of adhesions. He reportedly had a small bowel movement the other day, continues to pass gas, but had 450 cc out of his nasogastric tube yesterday and 550 cc today since midnight. Nasogastric output is bilious to my inspection. OBJECTIVE: His abdomen is quiet, mildly distended and tympanic, nontender. Incision is without signs of infection. LABORATORY DATA: Show white count 9.1, hematocrit of 36.5. More or less normal chemistries, though his bicarb is a bit high though coming down, and his BUN is a bit high but that is also coming down. IMPRESSION AND PLAN: Slow resolution of his postoperative ileus versus recurrent obstruction. I am inclined to think that this is the former. We will give him some ice chips. He has TPN ordered and is just awaiting a PICC line placement. If he remains distended tomorrow, I will check some plain films and, if all the gas is in his large intestine, I will likely pull his NG tube.
--- NOTE | 2016-06-14 12:08 | NUR ---
Evaluation completed. Please go to "Notes" then click on "Assessments and Notes" (bottom left corner of screen). Then select appropriate discipline tab on top of screen.
--- NOTE | 2016-06-14 12:08 | PCM.PNMED ---
Subjective Date of Service Jun 14, 2016 Subjective Minimal down pain. Some nausea. No vomiting. No flatus or stool output. No abdominal distention. He denies any chest pain or difficulties with breathing. Exam Vital Signs Vital Sign - Last Date Time Temp Pulse Resp B/P Pulse Ox O2 Delivery O2 Flow Rate FiO2 06/14/16 09:47 77 06/14/16 08:56 36.5 18 108/65 96 OxyMask 2.00 Intake and Output 06/13/16 06/13/16 06/14/16 Cumulative From/Thru 15:00 23:00 07:00 06/07/16 09:24 - 06/14/16 06:11 Intake Total 1226 ml 1134 ml 22966 ml Output Total 375 ml 1250 ml 99756 ml Balance 851 ml -116 ml -1966 ml Intake Oral 0 ml 0 ml 100 ml IV Total 1226 ml 1134 ml 20337 ml Output Urine Total 325 ml 700 ml 5045 ml Gastric Drainage Total 50 ml 550 ml 69252 ml Estimated Blood Loss 100 ml # Bowel Movements 0 0 1 Exam Alert oriented 3, fluent speech Normal L Anicteric sclerae Lungs are clear, normal effort. Heart is regular without murmur. Abdomen slightly distended with hypertympanic bowel tones but nontender Extremities for 1+ edema Good pedal pulses No skin rash or lesions IVs and Medications Medications Reviewed: Medications were reviewed in detail Lab and Diagnostics Result Diagram: 06/14/16 0701 06/14/16 0701 Additional Diagnostics DATE OF SURGERY: 06/08/2016 PREOPERATIVE DIAGNOSIS(ES): Small bowel obstruction. POSTOPERATIVE DIAGNOSIS(ES): Small bowel obstruction. PROCEDURE PERFORMED: 1. Laparotomy. 2. Open lysis of adhesions. 3. Rectus sheath block with liposomal bupivacaine. SURGEON: Carolee Anderson MD SPECIAL EVENT ASSISTANT: Aditi Roe PA-C FINDINGS: 1. Severe matted adhesions predominantly located within the right lower quadrant of the abdomen. 2. Meckel's diverticulum, nonobstructing. Assessment & Plan 89-year-old gentleman with past medical history of recurrent SBO x 6, hypertension, Bilateral carotid stenoses, multivessel CAD, history of laparotomy for small bowel obstruction, history of hernia repair presented with generalized abdominal pain, Dry heave, 2 episodes of diarrhea. 1. Small bowel obstruction, acute, POA - s/p Laparotomy and Open lysis of adhesions on 06/08/16 Patient's postoperative ileus appears to be slowly improving. He does have hyperactive bowel sounds today. KUB and upright are ordered to see how this is looking. There is no clinical change in his status today. We will continue with the current management plan. 2. Acute hypokalemia, repleted and resolved. Electrolytes 3. Acute hyponatremia, POA. Resolved Continue to follow 4. FEN, severe protein caloric malnutrition. Will initiate TPN. We will place a PICC line today for access. 5. History of CAD, history of carotid stenosis - Metoprolol 5 mg IV every 6 - Resume aspirin and statin once NG tube removed 6. Hypertension, chronic, stable When necessary hydralazine. Resume by mouth meds when able. Dispo: Pending his clinical progress and resolution of ileus. Will pursue physical therapy as well as he is getting weak. Pain Evaluation: Adequate Pain Control VTE Mechanical Devices: Intermittant Pneumatic CD Resuscitation Status: DNR/DNI:Do Not Resuscitate/Intubate Time spent 25 minute John Palomino MD Jun 14, 2016 12:08 There is no clinical change in his status today. We will continue with the current management plan. 2. Acute hypokalemia, repleted and resolved. Electrolytes 3. Acute hyponatremia, POA. Resolved Continue to follow 4. FEN, severe protein caloric malnutrition. Will initiate TPN. We will place a PICC line today for access. 5. History of CAD, history of carotid stenosis - Metoprolol 5 mg IV every 6 - Resume aspirin and statin once NG tube removed 6. Hypertension, chronic, stable When necessary hydralazine. Resume by mouth meds when able. Dispo: Pending his clinical progress and resolution of ileus. Will pursue physical therapy as well as he is getting weak. Pain Evaluation: Adequate Pain Control VTE Mechanical Devices: Intermittant Pneumatic CD Resuscitation Status: DNR/DNI:Do Not Resuscitate/Intubate Time spent 25 minute John Palomino MD Jun 14, 2016 12:08
--- NOTE | 2016-06-14 14:33 | DRSVH ---
PROCEDURE: X-RAY PICC LINE PLACEMENT BY NURSE ([id number]) INDICATIONS: access COMPARISON: None. FINDINGS: PICC was placed by the intravenous therapy team from the right side. Fluoroscopic spot fi lm demonstrates tip of PICC in the lower SVC. IMPRESSION: Tip of PICC lies within the lower SVC. Dictated by: Theo Ellsworth M.D. on 06/14/2016 at 14:30 Approved by: Theo Ellsworth M.D. on 06/14/2016 at 14:30
--- NOTE | 2016-06-14 16:35 | PCM.PHAPRO ---
Progress Addendum to TPN formula for the evening of 06/14/16: -Kcl will be 60meq in TPN Lorene Brooks [facility] Jun 14, 2016 16:35
--- NOTE | 2016-06-14 17:43 | NUR ---
Activity- Patient ambulated in hallway with walker and standby assist from PT. He did not complain of shortness of breath or feeling dizzy when up. No complaints of pain except for his stomach feeling "a little tight." Taking ice chips without nausea. NG tube draining bilious contents. Patient passing flatus, no stool.
[2016-06-14] MEDS: TPN Per Pharmacist XX SCH (21:00)
[2016-06-14] MEDS: Total Parenteral Nutrition 1 BAG IV SCH (21:38)
[2016-06-15] VITALS (10 sets, daily range): BP systolic 112–151; BP diastolic 62–73; PULSE 67–100; RESP 16–21; O2SAT 95–97
[2016-06-15] MEDS: Ondansetron 2 mg/mL 2 mL Inj IVPUSH PRN (00:46)
[2016-06-15] MEDS: MeTOProlol 1 mg/mL 5 mL Inj IVPUSH SCH ×4 (04:35→22:17)
--- NOTE | 2016-06-15 10:53 | NUR ---
W[place]held Metoprolol. Spoke to P[facility] charge nurse, discussed parameters and agreed to hold medication. BP 126/71 and Heart rate 78.
--- NOTE | 2016-06-15 11:10 | DRSVH ---
PROCEDURE: X-RAY ACUTE ABDOMINAL SERIES ([id number]) INDICATIONS: ileus vs sbo TECHNIQUE: One view chest and two views of the abdomen were acquired. COMPARISON: [facility], CR, XR GASTROGRAF CHALLENG 1VW ABD, 06/09/2016, 9:12. [facility], CR, XR ABD ACUTE SERIES 3VW, 06/07/2016, 10:18. FINDINGS: Surgical changes and devices: None. Chest: Suggestion of infiltrate at the left base and small effusion. Heart size is upper normal. Aort a is elongated and mildly ectatic. Abdomen: Bowel gas pattern is abnormal with minimally prominent small bowel with air and air-fluid l evels consistent with a very mild partial likely distal small bowel obstruction. No suspicious calcif ications. Visualized solid organ contours appear normal. Bones: No suspicious bony lesions. IMPRESSION: Abnormal bowel gas pattern thought to be mild partial distal obstruction. Question of infiltrate and effusion at the right lung base Dictated by: Neptali Kelly M.D. on 06/15/2016 at 11:08 Approved by: Neptali Kelly M.D. on 06/15/2016 at 11:08
--- NOTE | 2016-06-15 15:44 | PCM.PNMED ---
Subjective Date of Service Jun 15, 2016 Subjective 89-year-old man with history of small bowel obstruction presents with recurrent SBO. He reports symptoms are improved today, but his history does not seem entirely reliable. He has had no significant stool or flatus output Exam Vital Signs Vital Sign - Last Date Time Temp Pulse Resp B/P Pulse Ox O2 Delivery O2 Flow Rate FiO2 06/15/16 14:51 Room Air 06/15/16 12:58 36.9 74 16 131/70 95 3.00 Intake and Output 06/14/16 06/14/16 06/15/16 Cumulative From/Thru 15:00 23:00 07:00 06/07/16 09:24 - 06/15/16 06:33 Intake Total 977 ml 467 ml 08959 ml Output Total 150 ml 450 ml 10422 ml Balance 827 ml 17 ml -1122 ml Intake Oral 0 ml 120 ml 220 ml IV Total 977 ml 94791 ml TPN/PPN 347 ml 347 ml Output Urine Total 150 ml 400 ml 5595 ml Gastric Drainage Total 29587 ml Emesis 50 ml 50 ml Estimated Blood Loss 100 ml # Voids 1 1 # Bowel Movements 1 Exam General: Elderly man in no acute distress HEENT: sclerae anicteric, oral mucosa moist Neck: no apparent JVD Chest: clear to auscultation Cardiac: S1S2, no murmur Abdomen: BS present, abdomen distended, slightly firm but no rebound, nontender to palpation Extremities: 1+ edema Neuro: A&O, cranial nerves symmetric, motor strength and coordination normal IVs and Medications Medications Reviewed: Medications were reviewed in detail Lab and Diagnostics Result Diagram: 06/14/1670006/14/16 07 Additional Diagnostics DATE OF SURGERY: 06/08/2016 PREOPERATIVE DIAGNOSIS(ES): Small bowel obstruction. POSTOPERATIVE DIAGNOSIS(ES): Small bowel obstruction. PROCEDURE PERFORMED: 1. Laparotomy. 2. Open lysis of adhesions. 3. Rectus sheath block with liposomal bupivacaine. SURGEON: Carolee Anderson MD CHEMISTS: Aditi Roe PA-C FINDINGS: 1. Severe matted adhesions predominantly located within the right lower quadrant of the abdomen. 2. Meckel's diverticulum, nonobstructing. Assessment & Plan 89-year-old gentleman with past medical history of recurrent SBO x 6, hypertension, Bilateral carotid stenoses, multivessel CAD, history of laparotomy for small bowel obstruction, history of hernia repair presented with generalized abdominal pain, Dry heave, 2 episodes of diarrhea. Objective or high-risk problems: 1. Small bowel obstruction, acute, POA - s/p Laparotomy and Open lysis of adhesions on 06/08/16 - Now with post-op ileus, ongoing but seems to be improving - Continue NG tube suction and NPO - c/w supportive care - further advancing of diet per surgery recs 3. Acute hypokalemia - replete and f/u again today. 5. Now acute hypernatremia. - change NS to 1/2NS and f/u repeat labs in am 9. Deconditioning - Physical therapy consult Stable, resolved and/or chronic problems: 4. Acute hyponatremia, POA. Resolved with IVF - due to dehydration 2. Initial Leukocytosis, acute, POA. reactive to presenting stress. Resolved. 6. History of CAD, history of carotid stenosis - Metoprolol 5 mg IV every 6 - Resume aspirin and statin once NG tube removed 8. Hypertension, chronic, stable - Resume home lisinopril once NG tube removed Dispo: Pending his clinical progress and resolution of ileus. VTE Mechanical Devices: Intermittant Pneumatic CD Resuscitation Status: DNR/DNI:Do Not Resuscitate/Intubate Time spent 30 minutes Omer Stephen MD Jun 15, 2016 15:38
--- NOTE | 2016-06-15 16:21 | PROG NOTE ---
[address] [address] PROGRESS NOTE PATIENT: SARAH BROWN : 1925 MR#: [id number] ADMIT: 06/07/2016 JOB ID: [id number] DATE: 06/15/2016 The patient remains afebrile, stable vital signs with a pulse of 78, and blood pressure 126/71. He continues to pass gas, has had no further bowel movements. His nasogastric tube put 550 cc out yesterday. His abdomen remains distended, fairly quiet. There are no new labs today. I did obtain an acute abdominal series that demonstrated gas both in the small bowel and the large bowel with some contrast in the large intestine from previous Gastrografin challenge but still with some dilated small bowel, and small bowel air-fluid levels. IMPRESSION AND PLAN: I believe he still has a persistent diffuse postop ileus versus and I would leave his nasogastric tube in for now. I have reviewed this with the patient.
--- NOTE | 2016-06-15 17:01 | NUR ---
ACTIVITY TOLERANCE Patient tolerating ambulation. Ambulated with RN in am and PT in afternoon, denies pain and or discomfort at this time.
--- NOTE | 2016-06-15 18:25 | NUR ---
Increased abdominal pain and nausea Approx at 1700 pt reports N/V and a "different kind of pain". Adjusted pt's NG tube, flushed w/ air to see if NG tube was suctioned to abdominal wall. No increase in output. Pt's abdomen appears more distended than AM assmt, and to touch his LLQ he withdraws and yells out in pain. Anthony surgeon, acute abd series ordered stat, awaiting results. Addendum: 06/15/16 at 1855 by VALERIANO CAMACHO RN Pt returned from stat xray series, Surgeon at bedside. Per verbal orders, pulled NG tube out to 65.
--- NOTE | 2016-06-15 18:44 | DRSVH ---
PROCEDURE: X-RAY ACUTE ABDOMINAL SERIES ([id number]) INDICATIONS: LLQ PAIN,INCREASED BLOATING TECHNIQUE: One view chest and two views of the abdomen were acquired. COMPARISON: None. FINDINGS: Surgical changes and devices: None. Chest: No change is seen in the lungs. Minimal infiltrate at lung bases cannot be excluded.. Heart s ize is normal. . No pneumoperitoneum. Abdomen: Bowel gas pattern is abnormal but unchanged. Mildly distended small bowel loops are present with air-fluid levels. Contrast is seen in the colon. The appearance is consistent with a mild likel y distal small bowel partial obstruction.. No suspicious calcifications. Visualized solid organ con tours appear normal. Bones: No suspicious bony lesions. IMPRESSION: Bowel gas pattern is considered unchanged since the previous study at 948 hours on 06/15/16 . Dictated by: Neptali Kelly M.D. on 06/15/2016 at 18:42 Approved by: Neptali Kelly M.D. on 06/15/2016 at 18:42
[2016-06-15] MEDS: TPN Per Pharmacist XX SCH (21:00)
[2016-06-15] MEDS: Total Parenteral Nutrition 1 BAG IV SCH (21:03)
--- NOTE | 2016-06-15 21:24 | PROG NOTE ---
[address] [address] PROGRESS NOTE PATIENT: SARAH BROWN : 1925 MR#: [id number] ADMIT: 06/07/2016 JOB ID: [id number] DATE: 06/15/2016 I was called by the nursing staff because of concerns of decreased NG output, increased abdominal distention and complaints of left lower quadrant pain. The patient remains afebrile, hemodynamically stable. He feels his pain is about the same, feels that he is about to pass some gas from below. On exam, he may be a bit more distended than this morning, but he does not have peritoneal signs. Acute abdominal series is essentially unchanged from this morning. IMPRESSION AND PLAN: Ongoing ileus. I have asked the nurses to pull his NG tube back 2 inches as this may help it drain better. However, I think it is just a matter of waiting for his postop ileus to resolve.
[2016-06-16] VITALS (9 sets, daily range): BP systolic 120–149; BP diastolic 64–71; PULSE 66–78; RESP 18–20; O2SAT 92–96
[2016-06-16] MEDS: MeTOProlol 1 mg/mL 5 mL Inj IVPUSH SCH ×4 (04:35→23:33)
--- NOTE | 2016-06-16 07:22 | NUR ---
RA Pt rested well on RA. Pt sats 90-94%
[2016-06-16] MEDS: D5 0.45% NaCl + KCl 20 mEq/L 1,000 ML IV SCH ×2 (10:17→23:34)
--- NOTE | 2016-06-16 11:39 | PCM.PHAPRO ---
Progress Date of Service: Jun 16, 2016 TPN All electrolytes WNL, plan on decreasing potassium phosphate today from 30 to 15 mEq due to potassium being at upper limit and patient already receiving 30 mEq of potassium chloride daily. PARENTERAL NUTRITION ORDERS 3 - Standard Hang Time: 2100 Substrates Total kcal: 960 AMINO ACIDS 50 g DEXTROSE 150 g Total Volume (mL): 1000 LIPIDS 25 g Sterile Water for Injection QS mL To Infuse Over (hrs): 24 Total Volume 1000 mL At at a rate of (mL/hr): 42 Additives Sodium Chloride 60 mEq "typical" daily requirements Sodium Acetate mEq Sodium 50-120mEq Potassium Chloride 30 mEq Potassium 60-120mEq Potassium Phosphate 15 mEq Phosphate 20-40mEq Calcium Gluconate 9 mEq Magnesium 8-32mEq Magnesium Sulfate 12 mEq Calcium 9-22mEq Acetate* 80-120mEq Chloride* 80-120mEq Regular Insulin units *Depending on acid-base status Famotidine mg Multivitamins 1 std dose Insulin Regimen Trace Elements 1 std dose none Thiamine mg Regular Low Intensity Subcut Folic Acid mg Regular Medium Intensity Subcut Ascorbic Acid mg Regular High Intensity Subcut Regular Insulin Infusion Other: Pharmacy will continue to monitor in the care of this patient. Thanks! Megan Payne PharmD Jun 16, 2016 11:38
--- NOTE | 2016-06-16 12:19 | PCM.PNSURG ---
Subjective Visit Information: Reason for Visit PSBO Surgery/Surgery Date Post-Op Day # Date of Admission: Jun 07, 2016 at 14:15 Hospital Day # Subjective: Stable overnight. He continues to have normal vital signs. 2 abdominal x-rays were obtained yesterday, both demonstrate air-fluid levels and contrast in the colon, consistent with ileus, slowly resolving. He has been passing gas and his abdomen is less distended compared to Thursday, however, there is still some distention present and it is tympanic. NG output has decreased in the past 3 days, 600 mL in the first 12 hours shift yesterday, 150 mL in the second 12 hour shift. Objective Vital Sign- Last 8 Hours Date Time Temp Pulse Resp B/P Pulse Ox O2 Delivery O2 Flow Rate FiO2 06/16/16 11:59 36.9 67 18 149/70 92 Room Air 06/16/16 10:40 36.7 78 20 133/64 96 Room Air 06/16/16 08:00 66 06/16/16 06:14 36.5 73 18 128/65 94 Room Air Intake and Output- Last 8 Hour 06/16/16 Cumulative From/Thru 07:00 06/07/16 09:24 - 06/16/16 06:15 Intake Total 748 ml 19599 ml Output Total 500 ml 24979 ml Balance 248 ml -890 ml Intake Oral 200 ml 520 ml IV Total 111 ml 33839 ml TPN/PPN 437 ml 1319 ml Output Urine Total 350 ml 6245 ml Gastric Drainage Total 150 ml 84896 ml Emesis 50 ml Estimated Blood Loss 100 ml # Voids 1 # Bowel Movements 1 General: Alert, Oriented X3, Cooperative, No Acute Distress Abdomen: Soft, Non-tender, Distended, Tympanic, Other (NG output is thin mostly clear fluid.) Result Diagram: 06/14/16 0701 06/16/16 0615 Assessment & Plan Impression Postoperative day 8 lysis of adhesions for small bowel obstruction, with ileus, slowly improving. Problems: Plan NG output has decreased substantially, but he still has air-fluid levels on x- ray and is moderately distended on physical exam. If he has a bowel movement today and his NG output remains low, I will recommend discontinuation of his NG tube. Continue TPN. I appreciate management by the hospitalist team. Resuscitation Status: DNR/DNI:Do Not Resuscitate/Intubate Carolee Anderson MD Jun 16, 2016 12:19
--- NOTE | 2016-06-16 12:46 | NUR ---
Transfer to [facility] Patient report called by Víctor at [facility]. Patient arrived via bed to room 3009 at 1130. Patient was connected to continuous suctioning. Patient denied pain. Patient has TPN running through PICC line. Patient oriented to staff and call light and room.
--- NOTE | 2016-06-16 15:36 | NUR ---
Social Work: Continued Discharge Planning Data & Assessment: Belt Loop Maker spoke with patient's POA, Judy Sanchez [phone], and notified her that currently the PT was recommending HH. She voiced understanding and stated that if the patient has to discharge home with HH that their choice was [facility] because the patient has had [facility] has had [facility] in the past, but requested that the patient be referred to [facility] because he is not the same today as he was yesterday. POA stated that [facility] is the second choice if [facility] is unable to accept the patient. Belt Loop Maker spoke with SYSTEM CONTROLLER and he stated that patient has had a change since yesterday and is now two person assist and SYSTEM CONTROLLER is recommending SNF. Belt Loop Maker gave [facility] access and UR Specialist will give [facility] access and fax face sheet to both facilities. SW will continue to follow and assist patient throughout stay. Plan: It is anticipated that the patient will discharge to SNF once authorization is received from his insurance. Patient's first choice is [facility] and patient's second choice is [facility]. SW will continue to follow and assist patient throughout stay. Earlene Freed, BAILEY, ACM
--- NOTE | 2016-06-16 15:40 | NUR ---
NUTRITION FOLLOW-UP ASSESS: 89 yo M admitted for abdominal pain, n/v and diarrhea. He is s/p open lysis of adhesions for SBO. NG output is decreasing and ileus appears to be slowly resolving. TPN was initiated on 06/14. PMHX: recurrent SBO x6, HTN, CAD, laparotomy LABS: Reviewed. BUN 28, Cr .70, Glu 139. MEDS: Reviewed. GI: BM x 1 (06/12), NGT 150 ml 06/16 CURRENT WTS: 68.4 kg, BMI 25.1 kg/m2 DIET: NPOx6 NUTRITION SUPPORT: TPN ~ 150 g Dextrose, 50 g Amino Acids, 25 g lipids providing 960 kcals and 50 g protein. EST. NEEDS: Kcals: 4280-5810 kcal/day (25-30 kcal/kg) Protein: 80-105 g/day (1.2-1.5 g/kg) Fluids: 1058-5634 ml/day (25-30 ml/kg) NUTRITION DIAGNOSIS: 1.) Inadequate oral intake related to decreased ability to consume sufficient energy as evidenced by current NPO status.---PERSISTS 2.) Altered GI function related to recurrent SBO as evidence by need for surgery, current ileus and need for bowel rest---PERSISTS NUTRITION INTERVENTION: 1.) Recommend continuing current TPN today. If TPN remains well tolerated, recommend increasing TPN tomorrow 06/17 to 200 g dextrose, 75 g Amino acids and 40 g lipids to provide 1430 kcals and 75 g protein per day. Goal TPN will be 295 g dex, 100g AA and 55 g lipids to provide 1953 kcal and 100 g pro (100% estimated needs). 2.) Will request new wt. 3.) Advance diet when medically appropriate MONITOR / EVAL: TPN tolerance / advancement, labs, weight, GI and nutrition status. Continue to monitor per high nutrition risk guidelines. Addendum: 06/17/16 at [address] SÁ[address] RD TPN of 200 g dextrose, 75 g Amino acids and 40 g lipids to provide 1380 kcals and 75 g protein per day.
--- NOTE | 2016-06-16 15:59 | PCM.PNMED ---
Subjective Date of Service Jun 16, 2016 Subjective Pt seen and examined. Patient feels as if his stomach is distended. No bowel movements noted by nursing staff. Exam Vital Signs Vital Sign - Last Date Time Temp Pulse Resp B/P Pulse Ox O2 Delivery O2 Flow Rate FiO2 06/16/16 11:59 36.9 67 18 149/70 92 Room Air 06/15/16 21:31 1.00 Intake and Output 06/15/16 06/15/16 06/16/16 Cumulative From/Thru 15:00 23:00 07:00 06/07/16 09:24 - 06/16/16 06:15 Intake Total 884 ml 748 ml 53040 ml Output Total 900 ml 500 ml 79856 ml Balance -16 ml 248 ml -890 ml Intake Oral 100 ml 200 ml 520 ml IV Total 249 ml 111 ml 06346 ml TPN/PPN 535 ml 437 ml 1319 ml Output Urine Total 300 ml 350 ml 6245 ml Gastric Drainage Total 600 ml 150 ml 54729 ml Emesis 50 ml Estimated Blood Loss 100 ml # Voids 1 # Bowel Movements 1 Lab and Diagnostics Result Diagram: 06/14/16 0701 06/16/16 0615 Additional Diagnostics DATE OF SURGERY: 06/08/2016 PREOPERATIVE DIAGNOSIS(ES): Small bowel obstruction. POSTOPERATIVE DIAGNOSIS(ES): Small bowel obstruction. PROCEDURE PERFORMED: 1. Laparotomy. 2. Open lysis of adhesions. 3. Rectus sheath block with liposomal bupivacaine. SURGEON: Carolee Anderson MD POLYMER SCIENTIST: Aditi Roe PA-C FINDINGS: 1. Severe matted adhesions predominantly located within the right lower quadrant of the abdomen. 2. Meckel's diverticulum, nonobstructing. Assessment & Plan 89-year-old gentleman with past medical history of recurrent SBO x 6, hypertension, Bilateral carotid stenoses, multivessel CAD, history of laparotomy for small bowel obstruction, history of hernia repair presented with generalized abdominal pain, Dry heave, 2 episodes of diarrhea. Objective or high-risk problems: 1. Small bowel obstruction, acute, POA - s/p Laparotomy and Open lysis of adhesions on 06/08/16 - Now with post-op ileus, ongoing but seems to be improving - Continue NG tube suction and NPO - c/w supportive care - further advancing of diet per surgery recs 3. Acute hypokalemia - replete and f/u again today. 5. Now acute hypernatremia. - change NS to 1/2NS and f/u repeat labs in am 9. Deconditioning - Physical therapy consult Stable, resolved and/or chronic problems: 4. Acute hyponatremia, POA. Resolved with IVF - due to dehydration 2. Initial Leukocytosis, acute, POA. reactive to presenting stress. Resolved. 6. History of CAD, history of carotid stenosis - Metoprolol 5 mg IV every 6 - Resume aspirin and statin once NG tube removed 8. Hypertension, chronic, stable - Resume home lisinopril once NG tube removed Dispo: Pending his clinical progress and resolution of ileus. VTE Mechanical Devices: Intermittant Pneumatic CD Resuscitation Status: DNR/DNI:Do Not Resuscitate/Intubate Bartolome Potter MD Jun 16, 2016 15:59
--- NOTE | 2016-06-16 16:01 | NUR ---
Admit Patient report called by ED nurse. Patient arrived to room 3020 at 1500 via gurney. Patient was able to transfer independently to bed. Patient alert and oriented. Patient denied chest pain and any other pain. Patient given information about menu, call light, room, staff, visiting hours. Patient started on NS. Patient has a scratch on right thumb. Addendum: 06/16/16 at 1610 by BRADY BOWLING RN Disregard NOTE WRONG PATIENT
[2016-06-16] MEDS: Total Parenteral Nutrition 1 BAG IV SCH (21:52)
[2016-06-16] MEDS: TPN Per Pharmacist XX SCH (21:52)
[2016-06-17 04:30] VITALS: BP 154/74; PULSE 78; RESP 20; O2SAT 97
[2016-06-17] MEDS: MeTOProlol 1 mg/mL 5 mL Inj IVPUSH SCH ×4 (04:49→22:46)
--- NOTE | 2016-06-17 06:32 | NUR ---
Activity Pt getting up to BSC with OPA and FWW, tolerating activity well. Pt had smear of milky color stool, passing gas. NG tube continues at LIS with green fluid draining. Pt denies pain or nausea, able to sleep intermittently throughout shift.
[2016-06-17 07:08] LABS: Magnesium 2.2 mg/dL (1.6-2.6); Phosphorus 3.5 mg/dL (2.5-4.9)
[2016-06-17 08:00] VITALS: PULSE 71
--- NOTE | 2016-06-17 08:34 | PCM.PNSURG ---
Subjective Visit Information: Reason for Visit PSBO Surgery/Surgery Date Post-Op Day # Date of Admission: Jun 07, 2016 at 14:15 Hospital Day # Subjective: NG output 600mL although he is consuming probably 150-300mL ice chips daily. Had 2 BMs in past 24h. Passing gas. No pain. Objective Vital Sign- Last 8 Hours Date Time Temp Pulse Resp B/P Pulse Ox O2 Delivery O2 Flow Rate FiO2 06/17/16 04:30 36.4 78 20 154/74 97 Room Air Intake and Output- Last 8 Hour 06/17/16 Cumulative From/Thru 07:00 06/07/16 09:24 - 06/17/16 06:26 Intake Total 376 ml 46965 ml Output Total 1200 ml 04661 ml Balance -824 ml -832 ml Intake Oral 150 ml 670 ml IV Total 226 ml 64797 ml TPN/PPN 1812 ml Output Urine Total 600 ml 6846 ml Gastric Drainage Total 600 ml 30010 ml Emesis 50 ml Estimated Blood Loss 100 ml # Voids 1 # Bowel Movements 1 3 General: Alert, Oriented X3, Cooperative, No Acute Distress Abdomen: Soft, Distended, Tympanic, Other (distension improved compared to 5 days ago) Result Diagram: 06/14/16 0701 06/17/16 0550 Assessment & Plan Impression 89yom s/p adhesiolysis for SBO, POD 9. Ileus, resolving. Problems: Plan I have put an order to d/c NG tube today given recent BMs and low NG output. Recommend not advancing diet for 24h given ongoing distension. I will continue to follow. Page with questions [phone]. Resuscitation Status: DNR/DNI:Do Not Resuscitate/Intubate Carolee Anderson MD Jun 17, 2016 08:34
--- NOTE | 2016-06-17 09:00 | NUR ---
DC NG tube Rec'd order from Dr Anderson, surgical to dc NG tube and monitor pt closely for any nausea/emesis. In event pt has emesis, waitstaff captain is to replace NG tube then freddie DOW. NG tube dc'd at 0850, pt tolerated well. Denies any nausea at this time and states understanding to call staff if he feels any nausea. Addendum: 06/17/16 at 1920 by GUERDA GUZMAN RN Pt has denied nausea all shift and reports he is passing "more" gas than prior.
--- NOTE | 2016-06-17 10:10 | PCM.PNMED ---
Subjective Date of Service Jun 17, 2016 Subjective Brandan reports that he has passed a very small amount of flatus. He denies any nausea this morning and reports that he is excited to get out of bed with physical therapy and he would like to go for a walk in the [place]. No nausea since his NG was removed earlier this morning. Exam Vital Signs Vital Sign - Last Date Time Temp Pulse Resp B/P Pulse Ox O2 Delivery O2 Flow Rate FiO2 06/17/16 04:30 36.4 78 20 154/74 97 Room Air 06/15/16 21:31 1.00 Intake and Output 06/16/16 06/16/16 06/17/16 Cumulative From/Thru 15:00 23:00 07:00 06/07/16 09:24 - 06/17/16 06:26 Intake Total 883 ml 376 ml 43876 ml Output Total 1 ml 1200 ml 80023 ml Balance 882 ml -824 ml -832 ml Intake Oral 0 ml 150 ml 670 ml IV Total 390 ml 226 ml 28158 ml TPN/PPN 493 ml 1812 ml Output Urine Total 1 ml 600 ml 6846 ml Gastric Drainage Total 600 ml 44513 ml Emesis 50 ml Estimated Blood Loss 100 ml # Voids 1 # Bowel Movements 1 1 3 Exam General: Well appearing elderly male resting comfortably in bed upon my entering the room. No acute distress. Smiling and pleasant. TPN running. HEENT: moist mucus membranes, sclera anicteric Cardiac: RRR without murmur, rub, or gallop Respiratory: Good inspiratory effort, no wheezes, rales, or rhonchi Abdomen: Normoactive bowel tones. Mildly distended. Nontender. Midline surgical wound with edges well approximated and steri strips in place, no erythema or drainage. Extremities: No clubbing, edema, or cyanosis Neuro: Awake, alert, and oriented. Sits up in bed without assistance. Moves all 4 extremities with ease. IVs and Medications Medications Reviewed: Medications were reviewed in detail Lab and Diagnostics Result Diagram: 06/14/16 0701 06/17/16 0550 Additional Diagnostics DATE OF SURGERY: 06/08/2016 PREOPERATIVE DIAGNOSIS(ES): Small bowel obstruction. POSTOPERATIVE DIAGNOSIS(ES): Small bowel obstruction. PROCEDURE PERFORMED: 1. Laparotomy. 2. Open lysis of adhesions. 3. Rectus sheath block with liposomal bupivacaine. SURGEON: Carolee Anderson MD CENTER REP: Aditi Roe PA-C FINDINGS: 1. Severe matted adhesions predominantly located within the right lower quadrant of the abdomen. 2. Meckel's diverticulum, nonobstructing. Assessment & Plan Brandan is an 89yo male with a history of recurrent small bowel obstructions, hypertension, bilateral carotid artery stenosis, multivessel CAD who has been admitted for the treatment of a small bowel obstruction for which he underwent laparotomy with lysis of adhesions of 06/08/2016. Unfortunately, he has had a post operative ileus for which he had an NG tube which has been removed. 1. Small bowel obstruction, acute, present on admission - s/p Laparotomy and Open lysis of adhesions on 06/08/16 - TPN given the prolonged period in which he was without nutrition and he is not yet consuming food 2. Post operative ileus, resolving - Doing well without nausea since the NG has been discontinued. Passing a small amount of flatus - Advancement of diet per surgery 3. Deconditioning - Physical therapy evaluation - SNF at discharge 4. History of CAD, history of carotid stenosis - Metoprolol 5 mg IV every 6 - Resume aspirin and statin today 5. Hypertension, chronic, stable - Resume home lisinopril now that the NG has been removed 6. Electrolyte abnormalities secondary to ileus, resolved Dispo: Anticipate gradual advancement of his diet and ability to discontinue TPN over the next 2-3 days VTE Mechanical Devices: Intermittant Pneumatic CD Resuscitation Status: DNR/DNI:Do Not Resuscitate/Intubate Attending Statement The patient was seen and examined together with Dr. George on 06/17/2016 and I agree with the history, exam and plan as outlined in the note above. Flower George DO Jun 17, 2016 09:56 Emir Nix MD Jun 18, 2016 10:35
--- NOTE | 2016-06-17 10:16 | PCM.PHAPRO ---
Progress TPN PARENTERAL NUTRITION ORDERS 4 - Standard Hang Time: 2100 Substrates Total kcal: 1380 AMINO ACIDS 75 g DEXTROSE 200 g Total Volume (mL): 1100 LIPIDS 40 g Sterile Water for Injection QS mL To Infuse Over (hrs): 24 Total Volume 1100 mL At at a rate of (mL/hr): 46 Additives Sodium Chloride 60 mEq "typical" daily requirements Sodium Acetate mEq Sodium 50-120mEq Potassium Chloride 30 mEq Potassium 60-120mEq Potassium Phosphate 15 mEq Phosphate 20-40mEq Calcium Gluconate 9 mEq Magnesium 8-32mEq Magnesium Sulfate 12 mEq Calcium 9-22mEq Acetate* 80-120mEq Chloride* 80-120mEq Regular Insulin units *Depending on acid-base status Famotidine 20 mg Multivitamins 1 std dose Insulin Regimen Trace Elements 1 std dose none Thiamine mg Regular Low Intensity Subcut Folic Acid mg Regular Medium Intensity Subcut Ascorbic Acid mg Regular High Intensity Subcut Regular Insulin Infusion Other: Special Instructions: To be infused via central line only. For delay or inturruption of TPN contact the pharmacist for alternative replacement solution. Signature Date: SARAH BROWN [address] [facility] Adrián Gore Jun 17, 2016 10:16
[2016-06-17 11:55] VITALS: BP 108/65; PULSE 74; RESP 20; O2SAT 94
--- NOTE | 2016-06-17 14:23 | NUR ---
Social Work-continued d/c planning: Data:EMR Reviewed. Pt is on day 10 of hospitalization for PSBO per H&P. Pt is one to two days out from discharge. PT worked with pt yesterday and they are recommended home with HH pt ambulated 450ft. CLARICE placed a call to Juan [facility] and left a message to further discuss discharge planning. PT has been set up with [facility]. CLARICE will continue to follow. Assessment:pt who would benefit from HH. Plan:Pt to discharge home when medically stable. CLARICE has left message for pt's niece to discuss. Pt would benefit from [facility]. CLARICE will continue to follow. QUE Mascorro Addendum: 06/17/16 at 1608 by TABBY VILLAFUERTE CLARICE received a call back from juan, requesting a time to speak with CLARICE. CLARICE called back and informed nicarmen she could call around 0830 or after 1000 tomorrow. CLARICE will continue to follow. QUE Mascorro
[2016-06-17 20:15] VITALS: BP 167/93; PULSE 77; RESP 22; O2SAT 91
[2016-06-17] MEDS: TPN Per Pharmacist XX SCH (21:00)
[2016-06-17] MEDS: D5 0.45% NaCl + KCl 20 mEq/L 1,000 ML IV SCH (21:05)
[2016-06-17] MEDS: Total Parenteral Nutrition 1 BAG IV SCH (21:37)
[2016-06-17 22:51] VITALS: PULSE 63; O2SAT 94
[2016-06-17 23:10] VITALS: PULSE 76
[2016-06-18] VITALS (8 sets, daily range): BP systolic 131–165; BP diastolic 71–84; PULSE 71–99; RESP 20–24; O2SAT 93–96
[2016-06-18] MEDS: MeTOProlol 1 mg/mL 5 mL Inj IVPUSH SCH ×4 (04:48→23:25)
[2016-06-18 07:11] LABS: Magnesium 2.2 mg/dL (1.6-2.6); Phosphorus 3.3 mg/dL (2.5-4.9)
--- NOTE | 2016-06-18 07:27 | PCM.PNSURG ---
Subjective Visit Information: Reason for Visit PSBO Surgery/Surgery Date Post-Op Day # Date of Admission: Jun 07, 2016 at 14:15 Hospital Day # Subjective: NG out yesterday. No nausea. Passing gas. No new BM yesterday. Less distended. Objective Vital Sign- Last 8 Hours Date Time Temp Pulse Resp B/P Pulse Ox O2 Delivery O2 Flow Rate FiO2 06/18/16 04:44 36.7 75 22 154/74 93 Room Air 06/18/16 00:39 36.4 71 24 165/79 94 Room Air Intake and Output- Last 8 Hour 06/18/16 Cumulative From/Thru 07:00 06/07/16 09:24 - 06/18/16 06:32 Intake Total 773 ml 70409 ml Output Total 500 ml 15669 ml Balance 273 ml 271 ml Intake Oral 100 ml 950 ml IV Total 129 ml 12096 ml TPN/PPN 544 ml 2881 ml Output Urine Total 6846 ml Urine/Stool Mix 500 ml 500 ml Gastric Drainage Total 02333 ml Emesis 50 ml Estimated Blood Loss 100 ml # Voids 4 # Bowel Movements 0 3 General: Alert, Cooperative, No Acute Distress Abdomen: Soft, Non-tender, Distended, Tympanic, Other (less distended) Result Diagram: 06/14/16 0701 06/18/16 0550 Assessment & Plan Impression POD10 lysis of adhesions SBO Problems: Plan Clear liquid diet today. I have ordered this. Resuscitation Status: DNR/DNI:Do Not Resuscitate/Intubate Carolee Anderson MD Jun 18, 2016 07:27
--- NOTE | 2016-06-18 08:57 | PCM.PNMED ---
Subjective Date of Service Jun 18, 2016 Subjective Brandan reports that he has been passing more flatus. He denies any nausea, he is starting to feel hungry. He ambulated with physical therapy in the [place] yesterday and reports that he felt pretty tired afterward, but is looking forward to walking in the [place] again today. Exam Vital Signs Vital Sign - Last Date Time Temp Pulse Resp B/P Pulse Ox O2 Delivery O2 Flow Rate FiO2 06/18/16 04:44 36.7 75 22 154/74 93 Room Air 06/17/16 22:51 1.00 Intake and Output 06/17/16 06/17/16 06/18/16 Cumulative From/Thru 15:00 23:00 07:00 06/07/16 09:24 - 06/18/16 06:32 Intake Total 830 ml 773 ml 75778 ml Output Total 500 ml 37698 ml Balance 830 ml 273 ml 271 ml Intake Oral 180 ml 100 ml 950 ml IV Total 125 ml 129 ml 61892 ml TPN/PPN 525 ml 544 ml 2881 ml Output Urine Total 6846 ml Urine/Stool Mix 500 ml 500 ml Gastric Drainage Total 06969 ml Emesis 50 ml Estimated Blood Loss 100 ml # Voids 3 4 # Bowel Movements 0 3 Exam General: Well appearing elderly male resting comfortably in bed upon my entering the room. No acute distress. Smiling and pleasant, conversational. TPN running. HEENT: Moist mucus membranes, sclera anicteric Cardiac: RRR without murmur, rub, or gallop Respiratory: Good inspiratory effort, no wheezes, rales, or rhonchi. Intermittent cough with deep inspiration. Abdomen: Normoactive bowel tones. Mildly distended. Nontender. Midline surgical wound with edges well approximated and steri strips in place, no erythema or drainage. Extremities: No clubbing, edema, or cyanosis Neuro: Awake, alert, and oriented. Moves all 4 extremities with ease. IVs and Medications Medications Reviewed: Medications were reviewed in detail Lab and Diagnostics Result Diagram: 06/14/16 0701 06/18/16 0550 Additional Diagnostics DATE OF SURGERY: 06/08/2016 PREOPERATIVE DIAGNOSIS(ES): Small bowel obstruction. POSTOPERATIVE DIAGNOSIS(ES): Small bowel obstruction. PROCEDURE PERFORMED: 1. Laparotomy. 2. Open lysis of adhesions. 3. Rectus sheath block with liposomal bupivacaine. SURGEON: Carolee Anderson MD SUPERVISOR CIGAR MAKING MACHINE: Aditi Roe PA-C FINDINGS: 1. Severe matted adhesions predominantly located within the right lower quadrant of the abdomen. 2. Meckel's diverticulum, nonobstructing. Assessment & Plan Brandan is an 89yo male with a history of recurrent small bowel obstructions, hypertension, bilateral carotid artery stenosis, multivessel CAD who has been admitted for the treatment of a small bowel obstruction for which he underwent laparotomy with lysis of adhesions of 06/08/2016. Unfortunately, he has had a post operative ileus for which he had an NG tube which was removed on the morning of 06/17/16. 1. Small bowel obstruction, acute, present on admission - s/p Laparotomy and Open lysis of adhesions on 06/08/16 - TPN given the prolonged period in which he was without nutrition and he is not yet consuming food 2. Post operative ileus, resolving - Doing well without nausea since the NG has been discontinued. Passing flatus now. - Advancement of diet per surgery, will be having clear liquids today 3. Deconditioning - Physical therapy to continue to work with the patient daily until discharge - SNF at discharge prior to transitioning home 4. History of CAD, history of carotid stenosis - Metoprolol 5 mg IV every 6 - Home dosing of aspirin and statin started on 06/17/16 5. Hypertension, chronic, stable - Home dosing of lisinopril started after removal of the NG tube 6. Electrolyte abnormalities secondary to ileus, resolved Dispo: Anticipate gradual advancement of his diet and ability to discontinue TPN over the next 2-3 days, anticipate discharge to SNF due to deconditioning VTE Mechanical Devices: Intermittant Pneumatic CD Resuscitation Status: DNR/DNI:Do Not Resuscitate/Intubate Attending Statement The patient was seen and examined together with Dr. George on 06/18/2016 and I agree with the history, exam and plan as outlined in the note above. Flower George DO Jun 18, 2016 08:57 Emir Nix MD Jun 19, 2016 13:28
--- NOTE | 2016-06-18 11:05 | NUR ---
Social Work-readiness for discharge: Data:EMR reviewed. Pt is on day 11 of hospitalization for PSBO per H&P. Pt is one to two days out from discharge. PT has cleared pt for home with HH services pt ambulated 400ft. CLARICE spoke with pt's juan Kim today and informed her of plan for home with HH. Judy is in agreement with the plan of home with HH. Judy will be the one to provide transport at discharge. TPN to be discontinued prior to discharge. Referral has been made to [facility] beds at the [facility] for RN,PT,OT, and RN BSN. F2F in folder. SW will continue to follow. Assessment:pt who would benefit from HH. Plan:Pt to discharge home when medically stable via POV. Referral made to [facility] for RN,PT,OT, and RN BSN. F2F in folder. SW will continue to follow. QUE Mascorro Addendum: 06/18/16 at 1613 by TABBY VILLAFUERTE CLARICE also updated pt at bedside of plan and discussion with Juan Kim. Pt is agreeable to returning home with HH at discharge. QUE Mascorro
--- NOTE | 2016-06-18 13:17 | PCM.PHAPRO ---
Progress TPN PARENTERAL NUTRITION ORDERS 5 18-Jun-16 Standard Hang Time: 2100 Substrates Total kcal: 1380 AMINO ACIDS 75 g DEXTROSE 200 g Total Volume (mL): 1100 LIPIDS 40 g Sterile Water for Injection QS mL To Infuse Over (hrs): 24 Total Volume 1100 mL At at a rate of (mL/hr): 46 Additives Sodium Chloride 50 mEq "typical" daily requirements Sodium Acetate mEq Sodium 50-120mEq Potassium Chloride 20 mEq Potassium 60-120mEq Potassium Phosphate 15 mEq Phosphate 20-40mEq Calcium Gluconate 9 mEq Magnesium 8-32mEq Magnesium Sulfate 12 mEq Calcium 9-22mEq Acetate* 80-120mEq Chloride* 80-120mEq Regular Insulin units *Depending on acid-base status Famotidine 20 mg Multivitamins 1 std dose Insulin Regimen Trace Elements 1 std dose none Thiamine mg Regular Low Intensity Subcut Folic Acid mg Regular Medium Intensity Subcut Ascorbic Acid mg Regular High Intensity Subcut Regular Insulin Infusion Other: Special Instructions: To be infused via central line only. For delay or inturruption of TPN contact the pharmacist for alternative replacement solution. Signature Date: SARAH BROWN [address] [facility] JanetAdrián Jun 18, 2016 13:17
--- NOTE | 2016-06-18 14:53 | NUR ---
NUTRITION FOLLOW-UP ASSESS: 89 yo M admitted for abdominal pain, n/v and diarrhea. He is s/p open lysis of adhesions for partial SBO. Pt has been able to have his NG tube removed without increase in nausea and pt diet was advanced to clear liquids today. Pt reports he is starting to feel hungry. TPN was initiated on 06/14 and appears to be well tolerated at this time. PMHX: recurrent SBO x6, HTN, CAD, laparotomy LABS: Reviewed. BUN 35, Cr .75, Glu 147. MEDS: Reviewed. GI: BM x 1 (06/17), increase in flatus reported today. CURRENT WTS: 63.2 kg. Admit wt: 68.4 kg, BMI 25.1 kg/m2 DIET: Clear liquids. No po intake reported at this time. NUTRITION SUPPORT: TPN ~ 200 g dextrose, 75 g Amino acids and 40 g lipids to provide 1380 kcals and 75 g protein per day. EST. NEEDS: Kcals: 5961-7930 kcal/day (25-30 kcal/kg) Protein: 80-105 g/day (1.2-1.5 g/kg) Fluids: 8717-8563 ml/day (25-30 ml/kg) NUTRITION DIAGNOSIS: 1.) Inadequate oral intake related to decreased ability to consume sufficient energy as evidenced by current clear liquids diet status---PERSISTS 2.) Altered GI function related to recurrent SBO as evidence by need for surgery, current ileus and need for bowel rest---PERSISTS NUTRITION INTERVENTION: 1.) Will add clear liquid supplements (ensure clear and Gelatein plus) to all trays. 2.) Continue current TPN today. If pt is unable to tolerate clear liquids and have diet advanced to full liquids tomorrow, recommend increasing TPN to 250 g dextrose, 100 g protein and 50 g lipids to provide 1750 kcals and 100 g protein per day. Goal TPN will be 295 g dex, 100g AA and 55 g lipids to provide 1953 kcal and 100 g pro (100% estimated needs). 3.) Continue to advance diet when medically appropriate MONITOR / EVAL: TPN tolerance / advancement, diet advancement / tolerance, labs, weight, GI and nutrition status. Continue to monitor per high nutrition risk guidelines. Addendum: 06/19/16 at [address] S[address]HEZ [address] Pt diet has been advanced to full liquids today as pt tolerated clear liquids well yesterday. Same TPN will be continued today with possible discontinuing of TPN tomorrow 06/20 if pt continues to tolerate oral diet well. Will continue to monitor.
--- NOTE | 2016-06-18 18:40 | NUR ---
GI/activity Pt continues to c/o no nausea this shift. Pt started on a CL diet this AM, tolerating well. Pt did have a medium, loose stool and reports passing quite a bit of flatus as well as eructation. Incision to abdomen continues to heal with no indicators of infx, steri strips intact. Currently resting comfortably, bed in lowest, locked position and call light in reach.
[2016-06-18] MEDS: Total Parenteral Nutrition 1 BAG IV SCH (20:58)
[2016-06-18] MEDS: D5 0.45% NaCl + KCl 20 mEq/L 1,000 ML IV SCH (23:29)
[2016-06-19] VITALS (9 sets, daily range): BP systolic 109–152; BP diastolic 61–87; PULSE 73–102; RESP 19–21; O2SAT 93–96
[2016-06-19] MEDS: Ondansetron 2 mg/mL 2 mL Inj IVPUSH PRN (00:25)
[2016-06-19] MEDS: MeTOProlol 1 mg/mL 5 mL Inj IVPUSH SCH ×2 (05:53→18:29)
[2016-06-19 07:24] LABS: Magnesium 2.1 mg/dL (1.6-2.6)
--- NOTE | 2016-06-19 08:10 | PCM.PNMED ---
Subjective Date of Service Jun 19, 2016 Subjective Mr Lawson continues to pass flatus and had one bowel movement yesterday afternoon. He denies any pain, nausea, or vomiting. Exam Vital Signs Vital Sign - Last Date Time Temp Pulse Resp B/P Pulse Ox O2 Delivery O2 Flow Rate FiO2 06/19/16 05:12 36.2 74 20 128/74 95 Room Air 06/17/16 22:51 1.00 Intake and Output 06/18/16 06/18/16 06/19/16 Cumulative From/Thru 15:00 23:00 07:00 06/07/16 09:24 - 06/19/16 06:13 Intake Total 1989 ml 664 ml 54113 ml Output Total 1000 ml 400 ml 86333 ml Balance 989 ml 264 ml 1524 ml Intake Oral 1380 ml 50 ml 2380 ml IV Total 115 ml 115 ml 94972 ml TPN/PPN 494 ml 499 ml 3874 ml Output Urine Total 1000 ml 400 ml 8246 ml Urine/Stool Mix 500 ml Gastric Drainage Total 16333 ml Emesis 50 ml Estimated Blood Loss 100 ml # Voids 4 # Bowel Movements 1 4 Exam General: Well appearing elderly male resting comfortably in bed upon my entering the room. No acute distress. Smiling and pleasant, conversational. His voice is hoarse this morning. TPN running. HEENT: Moist mucus membranes, sclera anicteric Cardiac: RRR without murmur, rub, or gallop Respiratory: Good inspiratory effort, no wheezes, rales, or rhonchi. Intermittent cough with deep inspiration. Abdomen: Normoactive bowel tones. Mildly distended. Nontender. Midline surgical wound with edges well approximated and steri strips in place, no erythema or drainage. Extremities: No clubbing, edema, or cyanosis Neuro: Awake, alert, and oriented. Moves all 4 extremities with ease. 5/5 hard hat diver strength bilaterally. IVs and Medications Medications Reviewed: Medications were reviewed in detail Lab and Diagnostics Result Diagram: 06/14/16 0701 06/18/16 0550 Additional Diagnostics DATE OF SURGERY: 06/08/2016 PREOPERATIVE DIAGNOSIS(ES): Small bowel obstruction. POSTOPERATIVE DIAGNOSIS(ES): Small bowel obstruction. PROCEDURE PERFORMED: 1. Laparotomy. 2. Open lysis of adhesions. 3. Rectus sheath block with liposomal bupivacaine. SURGEON: Carolee Anderson MD CLINIC LICENSED PRACTICAL NURSE: Aditi Roe PA-C FINDINGS: 1. Severe matted adhesions predominantly located within the right lower quadrant of the abdomen. 2. Meckel's diverticulum, nonobstructing. Assessment & Plan Brandan is an 89yo male with a history of recurrent small bowel obstructions, hypertension, bilateral carotid artery stenosis, multivessel CAD who has been admitted for the treatment of a small bowel obstruction for which he underwent laparotomy with lysis of adhesions of 06/08/2016. Unfortunately, he has had a post operative ileus for which he had an NG tube which was removed on the morning of 06/17/16. He started clear liquids in the morning of 06/18/16. 1. Post operative ileus, resolving - Doing well without nausea since the NG has been discontinued. Passing flatus now. - Advancement of diet per surgery, will be having full liquids today and transition to soft diet if he tolerates the full liquids well 2. Deconditioning - Physical therapy to continue to work with the patient daily until discharge - SNF at discharge prior to transitioning home 3. Small bowel obstruction, acute, present on admission, resolved - s/p Laparotomy and Open lysis of adhesions on 06/08/16 - TPN given the duration in which he was without nutrition and he is not yet consuming adequate nutrition by oral route 4. History of CAD, history of carotid stenosis - Metoprolol at home dosing of 12.5mg BID - Home dosing of aspirin and statin started on 06/17/16 5. Hypertension, chronic, stable - Home dosing of lisinopril was started after removal of the NG tube 6. Electrolyte abnormalities secondary to ileus, resolved - Continuing to monitor Dispo: Anticipate gradual advancement of his diet and ability to discontinue TPN over the next few days, anticipate discharge to SNF due to deconditioning VTE Mechanical Devices: Intermittant Pneumatic CD Resuscitation Status: DNR/DNI:Do Not Resuscitate/Intubate Attending Statement The patient was seen and examined together with Dr. George on 06/19/2016 and I agree with the history, exam and plan as outlined in the note above. Flower George DO Jun 19, 2016 06:51 Emir Nix MD Jun 20, 2016 13:53
--- NOTE | 2016-06-19 08:52 | PCM.PNSURG ---
Subjective Visit Information: Reason for Visit PSBO Surgery/Surgery Date Post-Op Day # Date of Admission: Jun 07, 2016 at 14:15 Hospital Day # Subjective: Tolerated clear liquid diet. No N/V. Another BM yesterday. + flatus Objective Vital Sign- Last 8 Hours Date Time Temp Pulse Resp B/P Pulse Ox O2 Delivery O2 Flow Rate FiO2 06/19/16 08:35 36.6 90 21 114/61 93 Room Air 06/19/16 05:12 36.2 74 20 128/74 95 Room Air 06/19/16 04:48 102 Intake and Output- Last 8 Hour 06/19/16 Cumulative From/Thru 07:00 06/07/16 09:24 - 06/19/16 06:13 Intake Total 664 ml 50069 ml Output Total 400 ml 97688 ml Balance 264 ml 1524 ml Intake Oral 50 ml 2380 ml IV Total 115 ml 99746 ml TPN/PPN 499 ml 3874 ml Output Urine Total 400 ml 8246 ml Urine/Stool Mix 500 ml Gastric Drainage Total 26224 ml Emesis 50 ml Estimated Blood Loss 100 ml # Voids 4 # Bowel Movements 4 General: Cooperative, No Acute Distress Abdomen: Soft, Distended, Tympanic Result Diagram: 06/14/16 0701 06/19/16 0637 Assessment & Plan Impression POD11 lysis of adhesions for SBO, slowly improving Problems: Plan Full liquid diet today, I have ordered it. OK to advance to soft foods if he tolerates this. Resuscitation Status: DNR/DNI:Do Not Resuscitate/Intubate Carolee Anderson MD Jun 19, 2016 08:52
[2016-06-19] MEDS: TPN Per Pharmacist XX SCH ×2 (09:11→22:19)
--- NOTE | 2016-06-19 10:30 | PCM.PHAPRO ---
Progress TPN PARENTERAL NUTRITION ORDERS 6 19-Jun-16 Standard Hang Time: 2100 Substrates Total kcal: 1380 AMINO ACIDS 75 g DEXTROSE 200 g Total Volume (mL): 1100 LIPIDS 40 g Sterile Water for Injection QS mL To Infuse Over (hrs): 24 Total Volume 1100 mL At at a rate of (mL/hr): 46 Additives Sodium Chloride 50 mEq "typical" daily requirements Sodium Acetate mEq Sodium 50-120mEq Potassium Chloride 10 mEq Potassium 60-120mEq Potassium Phosphate 15 mEq Phosphate 20-40mEq Calcium Gluconate 9 mEq Magnesium 8-32mEq Magnesium Sulfate 12 mEq Calcium 9-22mEq Acetate* 80-120mEq Chloride* 80-120mEq Regular Insulin units *Depending on acid-base status Famotidine 20 mg Multivitamins 1 std dose Insulin Regimen Trace Elements 1 std dose none Thiamine mg Regular Low Intensity Subcut Folic Acid mg Regular Medium Intensity Subcut Ascorbic Acid mg Regular High Intensity Subcut Regular Insulin Infusion Other: Special Instructions: To be infused via central line only. For delay or inturruption of TPN contact the pharmacist for alternative replacement solution. Signature Date: SARAH BROWN [id number] [facility] Adrián Gore Jun 19, 2016 10:30
--- NOTE | 2016-06-19 17:02 | NUR ---
GI Hyperactive bowels in all 4 quadrants. Abdomen distended with pain noted with palpation, more so in the LLQ vs RLQ. Also noted to be firm. C/O nausea with no emesis. No BM this far in shift. Urine very chetan in color. When transferring patient off of BSC patient became very lethargic and weak and slumped over. This RN and HOT IRON WORKER caught patient as he was falling forward. Patient denies dizziness yet admits to have increasing weakness. Face is flushed in color. LE's bilateral pale in color. MD notified and states she will come to bedside.
--- NOTE | 2016-06-19 17:46 | NUR ---
NG tube NG tube placed. Confirmed by hospitalist at bedside to be in correct placement via Xray of abdomen. Large amounts of green drainage with continuous suction.
--- NOTE | 2016-06-19 17:58 | DRSVH ---
PROCEDURE: X-RAY ABDOMEN, ONE VIEW ([id number]) INDICATIONS: CONSTIPATION TECHNIQUE: One view of the abdomen acquired. COMPARISON: [facility], CR, XR ABD ACUTE SERIES 3VW, 06/15/2016, 17:56. FINDINGS: Surgical changes and devices: NG tube projects past the GE junction and is looped within the body of the stomach. Bowel: Multiple dilated loops of small bowel noted compatible with bowel obstruction. Soft tissues: No suspicious abdominal calcifications. Visualized solid organ contours appear normal in size. Bones: No suspicious bony lesions. IMPRESSION: NG tube projects rest the GE junction. Dilated loops of small bowel compatible with sma ll bowel obstruction. Dictated by: Ilana Rockwell MD, PhD on 06/19/2016 at 17:57 Approved by: Ilana Rockwell MD, PhD on 06/19/2016 at 17:57
[2016-06-19] MEDS: Total Parenteral Nutrition 1 BAG IV SCH (21:00)
[2016-06-20 00:12] VITALS: BP 111/58; PULSE 75; RESP 16; O2SAT 94
[2016-06-20] MEDS: MeTOProlol 1 mg/mL 5 mL Inj IVPUSH SCH ×4 (00:13→18:35)
[2016-06-20 06:34] VITALS: BP 114/67; PULSE 72; RESP 16; O2SAT 93
[2016-06-20 08:23] LABS: Magnesium 2.1 mg/dL (1.6-2.6); Phosphorus 2.7 mg/dL (2.5-4.9)
--- NOTE | 2016-06-20 09:07 | NUR ---
NUTRITION FOLLOW-UP ASSESS: 89 yo M admitted for abdominal pain, n/v and diarrhea. He is s/p open lysis of adhesions for partial SBO. TPN was initiated on 06/14 and appears to be well tolerated at this time. Pt was doing well and had NGT removed with diet advance to soft. Unfortunately, pt began to experience increased nausea and distended abdomen. NGT was placed 06/19 and pt is back to NPO. Will increase TPN today. Pharmacy aware. PMHX: recurrent SBO x6, HTN, CAD, laparotomy LABS: Reviewed. Cl 109, Bun 40, Glu 144, Ca 8.4 MEDS: Reviewed. GI: BM x 2 (06/19) CURRENT WTS: 63.8 kg. BMI 23.4kg/m2, Admit wt: 68.4 kg DIET: NPO NUTRITION SUPPORT: TPN ~ 200 g dextrose, 75 g Amino acids and 40 g lipids to provide 1380 kcals and 75 g protein per day. EST. NEEDS: Kcals: 8010-4332 kcal/day (25-30 kcal/kg) Protein: 80-105 g/day (1.2-1.5 g/kg) Fluids: 5472-1508 ml/day (25-30 ml/kg) NUTRITION DIAGNOSIS: 1.) Inadequate oral intake related to decreased ability to consume sufficient energy as evidenced by current clear liquids diet status---PERSISTS 2.) Altered GI function related to recurrent SBO as evidence by need for surgery, current ileus and need for bowel rest---PERSISTS NUTRITION INTERVENTION: 1.) Recommend increasing TPN to 250 g dextrose, 100 g protein and 50 g lipids to provide 1750 kcals and 100 g protein per day (~90% kcal and 100% pro needs) Goal TPN will be 295 g dex, 100g AA and 55 g lipids to provide 1953 kcal and 100 g pro (100% estimated needs). 3.) Continue to advance diet when medically appropriate MONITOR / EVAL: TPN tolerance / advancement, diet advancement / tolerance, labs, weight, GI and nutrition status. Continue to monitor per high nutrition risk guidelines.
--- NOTE | 2016-06-20 09:11 | PCM.PHAPRO ---
Progress Date of Service: Jun 20, 2016 TPN All electrolytes WNL, except for Calcium which is trending down. Will order am labs for 06/21/16 for albumin (since has not been drawn since 06/08/16 and should be drawn once weekly) and an ionized calcium to get a better idea of calcium replacement needs. Also per phone conversation with fixture maker we are increasing the patients AA to 100 mg, Dextrose to 250 mg and lipids to 50 g due to NPO status. PARENTERAL NUTRITION ORDERS 7 20-Jun-16 Standard Hang Time: 2100 Substrates Total kcal: 1750 AMINO ACIDS 100 g DEXTROSE 250 g Total Volume (mL): 1100 LIPIDS 50 g Sterile Water for Injection QS mL To Infuse Over (hrs): 24 Total Volume 1100 mL At at a rate of (mL/hr): 46 Additives Sodium Chloride 50 mEq "typical" daily requirements Sodium Acetate mEq Sodium 50-120mEq Potassium Chloride 10 mEq Potassium 60-120mEq Potassium Phosphate 15 mEq Phosphate 20-40mEq Calcium Gluconate 9 mEq Magnesium 8-32mEq Magnesium Sulfate 12 mEq Calcium 9-22mEq Acetate* 80-120mEq Chloride* 80-120mEq Regular Insulin units *Depending on acid-base status Famotidine 20 mg Multivitamins 1 std dose Insulin Regimen Trace Elements 1 std dose none Thiamine mg Regular Low Intensity Subcut Folic Acid mg Regular Medium Intensity Subcut Ascorbic Acid mg Regular High Intensity Subcut Regular Insulin Infusion Other: Phrarmacy will continue to monitor in the care of this patient. Thanks! Megan Payne PharmD Jun 20, 2016 09:11
--- NOTE | 2016-06-20 09:54 | PCM.PNMED ---
Subjective Date of Service Jun 20, 2016 Subjective Late yesterday afternoon, the patient became weaker with the return of nausea and more distended. An NG tube was placed and abdominal xray showed multiple loops of dilated bowel. There was immediate output of approximately 200mL of green to light brown fluid with placement of the NG tube. Brandan reports that he is feeling discouraged this morning. He denies any pain. Exam Vital Signs Vital Sign - Last Date Time Temp Pulse Resp B/P Pulse Ox O2 Delivery O2 Flow Rate FiO2 06/20/16 06:34 36.9 72 16 114/67 93 Room Air 06/17/16 22:51 1.00 Intake and Output 06/19/16 06/19/16 06/20/16 Cumulative From/Thru 15:00 23:00 07:00 06/07/16 09:24 - 06/20/16 07:00 Intake Total 35 ml 917 ml 1076 ml 06175 ml Output Total 1150 ml 250 ml 95099 ml Balance 35 ml -233 ml 826 ml 2152 ml Intake Oral 917 ml 0 ml 3297 ml IV Total 35 ml 59657 ml TPN/PPN 1076 ml 4950 ml Output Urine Total 300 ml 0 ml 8546 ml Urine/Stool Mix 500 ml Gastric Drainage Total 250 ml 25207 ml Emesis 50 ml Estimated Blood Loss 100 ml Other 850 ml 850 ml # Voids 4 # Bowel Movements 2 6 Exam General: Elderly male resting comfortably in bed upon my entering the room with NG tube in place draining green-brown semi-translucent fluid.. No acute distress. TPN running. HEENT: Moist mucus membranes, sclera anicteric Cardiac: RRR without murmur, rub, or gallop Respiratory: Good inspiratory effort, no wheezes, rales, or rhonchi. Intermittent cough with deep inspiration. Abdomen: Normoactive bowel tones. Moderately distended. Nontender. Midline surgical wound with edges well approximated no erythema or drainage; steri strips starting to detach. Extremities: No clubbing, edema, or cyanosis. SCDs in place. Neuro: Awake, alert, and oriented. Moves all 4 extremities with ease. 5/5 housing counselor strength bilaterally. Lifts both legs off bed with ease and able to keep in the air for 10 seconds each. Psychiatric: Depressed affect IVs and Medications Medications Reviewed: Medications were reviewed in detail Lab and Diagnostics Result Diagram: 06/14/16 0701 06/20/16 0735 X-Rays, CTs and MRIs Xray abdomen, 1 view on 06/19/16 FINDINGS: Surgical changes and devices: NG tube projects past the GE junction and is looped within the body of the stomach. Bowel: Multiple dilated loops of small bowel noted compatible with bowel obstruction. Soft tissues: No suspicious abdominal calcifications. Visualized solid organ contours appear normal in size. Bones: No suspicious bony lesions. IMPRESSION: NG tube projects rest the GE junction. Dilated loops of small bowel compatible with small bowel obstruction. Dictated by: Ilana Rockwell MD, PhD on 06/19/2016 at 17:57 Additional Diagnostics DATE OF SURGERY: 06/08/2016 PREOPERATIVE DIAGNOSIS(ES): Small bowel obstruction. POSTOPERATIVE DIAGNOSIS(ES): Small bowel obstruction. PROCEDURE PERFORMED: 1. Laparotomy. 2. Open lysis of adhesions. 3. Rectus sheath block with liposomal bupivacaine. SURGEON: Carolee Anderson MD CHICKEN HANGER: Aditi Roe PA-C FINDINGS: 1. Severe matted adhesions predominantly located within the right lower quadrant of the abdomen. 2. Meckel's diverticulum, nonobstructing. Assessment & Plan Brandan is an 89yo male with a history of recurrent small bowel obstructions, hypertension, bilateral carotid artery stenosis, multivessel CAD who has been admitted for the treatment of a small bowel obstruction for which he underwent laparotomy with lysis of adhesions of 06/08/2016. Unfortunately, he has had a post operative ileus for which he had an NG tube which was removed on the morning of 06/17/16 and he tolerated clear liquids on 06/18/16. His nausea and distention returned on 06/19/16 for which a NG tube was placed. 1. Post operative ileus,ongoing - NG placed again on 06/19/16 on continuous suction - Strict NPO - If not better in another 2 days, will CT abdomen as discussed with Dr Anderson ( General Surgeon) 2. Deconditioning - Physical therapy to continue to work with the patient daily until discharge - Out of bed to ambulate 3 times daily, discussed with nursing and the patient - SNF at discharge prior to transitioning home 3. Small bowel obstruction, acute, present on admission, resolved - s/p Laparotomy and Open lysis of adhesions on 06/08/16 - TPN given the duration in which he was without nutrition and he is not yet consuming adequate nutrition by oral route 4. History of CAD, history of carotid stenosis - Transitioned oral cardiovascular medications back to IV given that he now NPO again - Home dosing of aspirin and statin started on 06/17/16 5. Hypertension, chronic, stable - Restart lisinopril once able to have oral intake - Monitor 6. Electrolyte abnormalities secondary to ileus, resolved - Continuing to monitor Dispo: With the worsening of his condition, anticipate that the patient will be here for several more days. VTE Mechanical Devices: Intermittant Pneumatic CD Resuscitation Status: DNR/DNI:Do Not Resuscitate/Intubate Attending Statement The patient was seen and examined together with Dr. George on 06/20/2016 and I agree with the history, exam and plan as outlined in the note above. Flower George DO Jun 20, 2016 09:54 Emir Nix MD Jun 20, 2016 13:53
[2016-06-20 09:58] LABS: Mean Corpuscular Volume 97.9 fL (81-100)
--- NOTE | 2016-06-20 10:34 | PCM.PNSURG ---
Subjective Visit Information: Reason for Visit PSBO Surgery/Surgery Date Post-Op Day # Date of Admission: Jun 07, 2016 at 14:15 Hospital Day # Subjective: Full liquid diet was started yesterday but by the afternoon he was distended and nauseated. NG was replaced with immediate output of gastric contents. He is still distended and tympanic today. WBC up to 12. No complaints this morning although he says a "shinto person" was thought be be coming to visit ; unclear if he is delirious or referring to lay out and detail drafter visit. Objective Vital Sign- Last 8 Hours Date Time Temp Pulse Resp B/P Pulse Ox O2 Delivery O2 Flow Rate FiO2 06/20/16 06:34 36.9 72 16 114/67 93 Room Air 06/20/16 04:29 Supplement Oxygen Intake and Output- Last 8 Hour 06/20/16 Cumulative From/Thru 06:59 06/07/16 09:24 - 06/20/16 06:46 Intake Total 1076 ml 77416 ml Output Total 250 ml 96143 ml Balance 826 ml 2152 ml Intake Oral 3297 ml IV Total 79724 ml TPN/PPN 1076 ml 4950 ml Output Urine Total 8546 ml Urine/Stool Mix 500 ml Gastric Drainage Total 250 ml 63459 ml Emesis 50 ml Estimated Blood Loss 100 ml Other 850 ml # Voids 4 # Bowel Movements 6 General: Cooperative, No Acute Distress Abdomen: Firm, Distended, Tympanic, Other (incisions c/d/i) Result Diagram: 06/20/16 0735 06/20/16 0735 Assessment & Plan Impression 89yom SBO POD12 lysis of adhesions with expected ileus. Problems: Plan -Continue NG -Recheck CBC tomorrow (ordered) given small elevation in WBC -Abd XR to be performed today (ordered) -If no return of bowel function by POD 14, consider CT Abd/pelvis with, at a minimum, enteral contrast (IV as well is preferred) Resuscitation Status: DNR/DNI:Do Not Resuscitate/Intubate Carolee Anderson MD Jun 20, 2016 10:34
[2016-06-20 13:35] VITALS: BP 123/72; PULSE 73; RESP 18; O2SAT 94
--- NOTE | 2016-06-20 14:27 | DRSVH ---
PROCEDURE: X-RAY ACUTE ABDOMINAL SERIES ([id number]) INDICATIONS: ileus TECHNIQUE: One view chest and two views of the abdomen were acquired. COMPARISON: [facility], CR, XR ABD ACUTE SERIES 3VW, 06/15/2016, 17:56. FINDINGS: Surgical changes and devices: Enteric tube with the tip in the distal stomach. Right PICC line with t he tip projecting in the lower SVC. Chest: Bibasilar patchy opacities. Heart size is normal. No pleural effusions. No pneumoperitoneum . Abdomen: Mildly prominent left-sided small bowel loops which appear mildly improved since 06/15/16. No definite bowel obstruction at this time. Scattered air-fluid levels Bones: No suspicious bony lesions. IMPRESSION: Scattered air-fluid levels and mildly prominent small bowel loops although appear improve d since 06/15/16. Recommend clinical correlation, and continued radiographic followup as the patient's symptoms warrant Dictated by: Theo Ellsworth M.D. on 06/20/2016 at 14:26 Approved by: Theo Ellsworth M.D. on 06/20/2016 at 14:26
--- NOTE | 2016-06-20 15:21 | NUR ---
Social Work: Continued d/c planning Data: Pt is on day 13 of hospitalization. EMR reviewed. PT is now recommending SNF as pt is only walking 10 ft compared to his previous 250ft. MISSION SYSTEMS ENGINEER left SNF choice list if pt's room, pt sleeping soundly. MISSION SYSTEMS ENGINEER called pt's DPOA and left a message stating that pt has declined in abilities with PT and they are currently recommending SNF, so it would be good to make referrals to SNF for pt as an option if he does not improve before d/c. MISSION SYSTEMS ENGINEER requested that she call MISSION SYSTEMS ENGINEER back with their 1st and 2nd choice SNF after viewing the SNF choice list. MISSION SYSTEMS ENGINEER will continue to follow. Plan: Dual planning, pt will either d/c home via POV with Isabela GRAY RN/PT/CERTIFIED ORTHOTIC FITTER, or to SNF. MISSION SYSTEMS ENGINEER awaiting phone call from pt's DPOA regarding SNF choice. QUE Reddy
--- NOTE | 2016-06-20 16:31 | NUR ---
Social Work: Continued d/c planning MECHANIC HELPER spoke with pt's SOPHIA who states preferences for SNF 1st being [facility], 2nd being [facility]. MECHANIC HELPER has not yet referred pt. QUE Reddy
[2016-06-20 20:42] VITALS: BP 153/69; PULSE 67; RESP 16; O2SAT 95
[2016-06-20] MEDS: TPN Per Pharmacist XX SCH (21:03)
[2016-06-20] MEDS: Total Parenteral Nutrition 1 BAG IV SCH (21:06)
[2016-06-21] MEDS: MeTOProlol 1 mg/mL 5 mL Inj IVPUSH SCH ×4 (00:05→17:58)
--- NOTE | 2016-06-21 01:47 | NUR ---
NG tube and Telemetry Pts NG tube fell out while PT was sitting on BSC. Tubing came out intact, Pt had no complaints of pain. NG had 300ml of green output from beginning of this shift, up till it fell out. Md notified and said to leave it out at this time, but to re-evaluate if Pt begins having symptoms of distention and discomfort. also consulted about Pt receiving IV metoprolol but not being on telemetry. Md aware and will review in AM.
[2016-06-21 05:39] VITALS: BP 144/71; PULSE 67; RESP 16; O2SAT 97
[2016-06-21 06:32] LABS: Mean Corpuscular Hemoglobin 31.7 pg (27.0-35.0); Mean Corpuscular Volume 96.5 fL (81-100)
[2016-06-21 06:57] LABS: Magnesium 2.1 mg/dL (1.6-2.6); Phosphorus 2.8 mg/dL (2.5-4.9)
--- NOTE | 2016-06-21 08:15 | NUR ---
NUTRITION FOLLOW-UP ASSESS: 89 yo M admitted with abdominal pain, n/v and diarrhea. He is s/p open lysis of adhesions for partial SBO. TPN was initiated on 06/14 and appears to be well tolerated at this time. Pt was doing well and had NGT removed with diet advance to soft. Unfortunately, pt began to experience increased nausea and distended abdomen. NGT was placed 06/19 and diet downgraded to NPO status. NGT fell out this morning; provider not replacing at this point unless patient's discomfort returns. Macronutrients in TPN increased yesterday; TPN appears to be well tolerated, meeting approx. 100% nutrient needs. PMHX: Recurrent SBO x6, HTN, CAD, laparotomy, bilateral carotid artery stenosis. LABS: Reviewed. Na 146, Chloride 109, BUN 32, Cr 0.62, Glu 114, Alb 2.9. MEDS:Reviewed. Lopressor. GI: BM x 2 (06/20) WT:63.8 kg. BMI 23.4kg/m2, Admit wt: 68.4 kg DIET: NPO TPN: 250 g dextrose, 100 g protein and 50 g lipids to provide 1750 kcals and 100 g protein per day (~90% kcal and 100% pro needs) EST. NEEDS: Kcals: 7979-5550 kcal/day (25-30 kcal/kg) Protein: 80-105 g/day (1.2-1.5 g/kg) Fluids: 1691-6527 ml/day (25-30 ml/kg) NUTRITION DIAGNOSIS: 1) Inadequate oral intake related to decreased ability to consume sufficient energy as evidenced by current NPO diet status -PERSISTS. 2) Altered GI function related to recurrent SBO's, as evidenced by need for surgery, current ileus and need for bowel rest - PERSISTS. NUTRITION INTERVENTION: 1) Goal TPN will be 295 g dex, 100g AA and 55 g lipids to provide 1953 kcal and 100 g pro (100% estimated needs). TPN will be advanced to goal Friday 06/23 unless refeeding risk not resolved and diet nor advanced. 2) Continue to advance diet when medically appropriate. MONITOR / EVAL: TPN tolerance / advancement, diet advancement / tolerance, labs, weight, GI and nutrition status. Continue to monitor per high nutrition risk guidelines.
[2016-06-21 08:26] VITALS: BP 154/73; PULSE 66; RESP 17; O2SAT 95
[2016-06-21 08:32] VITALS: PULSE 65
--- NOTE | 2016-06-21 08:48 | PCM.PNSURG ---
Subjective Visit Information: Reason for Visit PSBO Surgery/Surgery Date Post-Op Day # Date of Admission: Jun 07, 2016 at 14:15 Hospital Day # Subjective: NGT was pulled out accidentally overnight, no nausea this am, passing little flatus Objective Objective Awake in bed Abd: mild distention, soft, incision clean Vital Sign- Last 8 Hours Date Time Temp Pulse Resp B/P Pulse Ox O2 Delivery O2 Flow Rate FiO2 06/21/16 08:32 65 06/21/16 08:26 36.6 66 17 154/73 95 Room Air 06/21/16 05:39 36.8 67 16 144/71 97 Room Air Intake and Output- Last 8 Hour 06/21/16 Cumulative From/Thru 07:00 06/07/16 09:24 - 06/21/16 06:11 Intake Total 520 ml 15009 ml Output Total 05697 ml Balance 520 ml 2070 ml Intake Oral 3297 ml IV Total 48985 ml TPN/PPN 520 ml 6018 ml Output Urine Total 9496 ml Urine/Stool Mix 500 ml Gastric Drainage Total 34493 ml Emesis 50 ml Estimated Blood Loss 100 ml Other 850 ml # Voids 4 # Bowel Movements 8 Result Diagram: 06/21/16 0600 06/21/16 0600 Assessment & Plan Impression Postop ileus Hypernatremia Problems: Plan Ambulate Ice chips OK Continue TPN Await bowel function return VTE Prophylaxis: Sub-Q Enoxaparin Resuscitation Status: DNR/DNI:Do Not Resuscitate/Intubate Marlon Turner MD Jun 21, 2016 08:48
--- NOTE | 2016-06-21 11:03 | NUR ---
LEXX signed. QUE Mascorro
--- NOTE | 2016-06-21 11:15 | PCM.PHAPRO ---
Progress TPN PARENTERAL NUTRITION ORDERS 8 - Standard Hang Time: 2100 Substrates Total kcal: 1750 AMINO ACIDS 100 g DEXTROSE 250 g Total Volume (mL): 1500 LIPIDS 50 g Sterile Water for Injection QS mL To Infuse Over (hrs): 24 Total Volume 1500 mL At at a rate of (mL/hr): 63 Additives Sodium Chloride 50 mEq "typical" daily requirements Sodium Acetate mEq Sodium 50-120mEq Potassium Chloride 10 mEq Potassium 60-120mEq Potassium Phosphate 15 mEq Phosphate 20-40mEq Calcium Gluconate 9 mEq Magnesium 8-32mEq Magnesium Sulfate 12 mEq Calcium 9-22mEq Acetate* 80-120mEq Chloride* 80-120mEq Regular Insulin units *Depending on acid-base status Famotidine 20 mg Multivitamins 1 std dose Insulin Regimen Trace Elements 1 std dose none Thiamine mg Regular Low Intensity Subcut Folic Acid mg Regular Medium Intensity Subcut Ascorbic Acid mg Regular High Intensity Subcut Regular Insulin Infusion Other: Special Instructions: To be infused via central line only. For delay or inturruption of TPN contact the pharmacist for alternative replacement solution. Signature Date: SARAH BROWN [address] [facility] Shannon Rubio PharmD Jun 21, 2016 11:15
--- NOTE | 2016-06-21 12:46 | PCM.PNMED ---
Subjective Date of Service Jun 21, 2016 Subjective Brandan's NG tube came out yesterday evening and he has not had any further nausea without it in. He reports wanting to have something to eat or drink. He has walked 450ft with his RN this morning. Per nursing, the patient had a very small , loose bowel movement and passed flatus. Brandan denies any abdominal pain though he has not admitted to any pain all week. Exam Vital Signs Vital Sign - Last Date Time Temp Pulse Resp B/P Pulse Ox O2 Delivery O2 Flow Rate FiO2 06/21/16 08:47 Supplement Oxygen 06/21/16 08:32 65 06/21/16 08:26 36.6 17 154/73 95 06/17/16 22:51 1.00 Intake and Output 06/20/16 06/20/16 06/21/16 Cumulative From/Thru 15:00 23:00 07:00 06/07/16 09:24 - 06/21/16 06:11 Intake Total 548 ml 520 ml 46837 ml Output Total 1150 ml 04606 ml Balance -602 ml 520 ml 2070 ml Intake Oral 0 ml 3297 ml IV Total 02167 ml TPN/PPN 548 ml 520 ml 6018 ml Output Urine Total 950 ml 9496 ml Urine/Stool Mix 500 ml Gastric Drainage Total 200 ml 69510 ml Emesis 50 ml Estimated Blood Loss 100 ml Other 850 ml # Voids 4 # Bowel Movements 2 8 Exam General: Elderly male resting comfortably in bed upon my entering the room Awoken easily. No acute distress. Smiling and pleasant. TPN running. HEENT: Moist mucus membranes, sclera anicteric Cardiac: RRR without murmur, rub, or gallop Respiratory: Good inspiratory effort, no wheezes, rales, or rhonchi. Abdomen: Normoactive bowel tones. Mildly distended. Nontender. Midline surgical wound with edges well approximated no erythema or drainage; a few steri strips remain in place over the wound. Extremities: No clubbing, edema, or cyanosis. Neuro: Awake, alert, and oriented. Moves all 4 extremities with ease. 5/5 bar catcher strength bilaterally. Lifts both legs off bed with ease. IVs and Medications Medications Reviewed: Medications were reviewed in detail Lab and Diagnostics Result Diagram: 06/21/16 0600 06/21/16 0600 X-Rays, CTs and MRIs Xray abdomen, view on 06/19/16 FINDINGS: Surgical changes and devices: NG tube projects past the GE junction and is looped within the body of the stomach. Bowel: Multiple dilated loops of small bowel noted compatible with bowel obstruction. Soft tissues: No suspicious abdominal calcifications. Visualized solid organ contours appear normal in size. Bones: No suspicious bony lesions. IMPRESSION: NG tube projects rest the GE junction. Dilated loops of small bowel compatible with small bowel obstruction. Dictated by: Ilana Rockwell MD, PhD on 06/19/2016 at 17:57 Xrays, acute abdominal series on 06/20/16 FINDINGS: Surgical changes and devices: Enteric tube with the tip in the distal stomach. Right PICC line with the tip projecting in the lower SVC. Chest: Bibasilar patchy opacities. Heart size is normal. No pleural effusions. No pneumoperitoneum. Abdomen: Mildly prominent left-sided small bowel loops which appear mildly improved since 06/15/16. No definite bowel obstruction at this time. Scattered air -fluid levels Bones: No suspicious bony lesions. IMPRESSION: Scattered air-fluid levels and mildly prominent small bowel loops although appear improved since 06/15/16. Recommend clinical correlation, and continued radiographic followup as the patient's symptoms warrant Dictated by: Theo Ellsworth M.D. on 06/20/2016 at 14:26 Additional Diagnostics DATE OF SURGERY: 06/08/2016 PREOPERATIVE DIAGNOSIS(ES): Small bowel obstruction. POSTOPERATIVE DIAGNOSIS(ES): Small bowel obstruction. PROCEDURE PERFORMED: 1. Laparotomy. 2. Open lysis of adhesions. 3. Rectus sheath block with liposomal bupivacaine. SURGEON: Carolee Anderson MD ADMINISTRATIVE OFFICE MANAGER: Aditi Roe PA-C FINDINGS: 1. Severe matted adhesions predominantly located within the right lower quadrant of the abdomen. 2. Meckel's diverticulum, nonobstructing. Assessment & Plan Brandan is an 89yo male with a history of recurrent small bowel obstructions, hypertension, bilateral carotid artery stenosis, multivessel CAD who has been admitted for the treatment of a small bowel obstruction for which he underwent laparotomy with lysis of adhesions of 06/08/2016. Unfortunately, he has had a post operative ileus for which he had an NG tube which was removed on the morning of 06/17/16 and he tolerated clear liquids on 06/18/16. His nausea and distention returned on 06/19/16 for which a NG tube was placed and is no longer is place. 1. Post operative ileus, improving - No NG in place and the patient's distension is now mild, he is without nausea and has had a small bowel movement - Diet advancement per general surgery - Monitor 2. Deconditioning - Physical therapy to continue to work with the patient daily until discharge - Out of bed to ambulate 3 times daily, discussed with nursing and the patient - SNF at discharge prior to transitioning home 3. Small bowel obstruction, acute, present on admission, resolved - s/p Laparotomy and Open lysis of adhesions on 06/08/16 - TPN given the duration in which he was without nutrition and he is not yet consuming adequate nutrition by oral route 4. History of CAD, history of carotid stenosis - Will transition his IV medications to oral as able - Home dosing of aspirin and statin started on 06/17/16 5. Hypertension, chronic, stable - Restart lisinopril now that he is able to have oral intake - Monitor 6. Electrolyte abnormalities secondary to ileus, resolved - Continuing to monitor Dispo: Anticipate discharge to SNF once medically stable, likely in 2-3 days VTE Prophylaxis: Sub-Q Enoxaparin VTE Mechanical Devices: Intermittant Pneumatic CD Resuscitation Status: DNR/DNI:Do Not Resuscitate/Intubate Attending Statement The patient was seen and examined together with Dr. George on 06/21/2016 and I agree with the history, exam and plan as outlined in the note above. Flower George DO Jun 21, 2016 12:46 Emir Nix MD Jun 22, 2016 10:15
[2016-06-21 12:49] VITALS: BP 134/55; PULSE 69; RESP 18; O2SAT 97
--- NOTE | 2016-06-21 13:11 | NUR ---
D/C FROM PT. Pt is d/c from PT at this time and is safe to amb w/nsg 2-3x per day. OOB/RTB via logroll.
--- NOTE | 2016-06-21 17:51 | NUR ---
gas pt reports an increase of gas but not an increase in abdominal distention. pt states that he is keeping a close eye on his stomach and agrees to report if he notices any distention.
[2016-06-21 20:15] VITALS: BP 155/75; PULSE 81; RESP 20; O2SAT 94
[2016-06-21] MEDS: TPN Per Pharmacist XX SCH (20:31)
[2016-06-21] MEDS: Total Parenteral Nutrition 1 BAG IV SCH (20:31)
[2016-06-22] VITALS (10 sets, daily range): BP systolic 129–152; BP diastolic 62–71; PULSE 64–76; RESP 14–20; O2SAT 95–97
[2016-06-22] MEDS ORDERED: 0.9% Sodium Chloride 100 ML ONE (00:04)
[2016-06-22] MEDS: MeTOProlol 1 mg/mL 5 mL Inj IVPUSH SCH ×3 (00:10→12:28)
--- NOTE | 2016-06-22 05:19 | NUR ---
GI Per report, pt has BM after walking in [place]. Pt has been sleeping most of this shift and has not been up to walk this shift. Pt denies abdominal discomfort/further distension and has flatus. BT hypoactive. Abdominal incision well approximated with steri strips intact. Continuing care.
[2016-06-22 06:43] LABS: Magnesium 1.9 mg/dL (1.6-2.6)
--- NOTE | 2016-06-22 08:20 | PCM.PNSURG ---
Subjective Visit Information: Reason for Visit PSBO Surgery/Surgery Date Post-Op Day # Date of Admission: Jun 07, 2016 at 14:15 Hospital Day # Subjective: pt tolerated clear liquids yesterday, thinks "things are moving thru", no n/v, passing loose stool Objective Objective awake in bed Abd: mild protuberant, nontender, incision clean without erythema Vital Sign- Last 8 Hours Date Time Temp Pulse Resp B/P Pulse Ox O2 Delivery O2 Flow Rate FiO2 06/22/16 06:27 66 06/22/16 05:05 36.7 66 16 152/71 96 Room Air 06/22/16 01:26 64 18 140/63 96 Room Air Intake and Output- Last 8 Hour 06/22/16 Cumulative From/Thru 07:00 06/07/16 09:24 - 06/22/16 04:32 Intake Total 639 ml 93190 ml Output Total 99610 ml Balance 639 ml 2366 ml Intake Oral 3697 ml IV Total 36 ml 81681 ml TPN/PPN 603 ml 7178 ml Output Urine Total 14270 ml Urine/Stool Mix 500 ml Gastric Drainage Total 40714 ml Emesis 50 ml Estimated Blood Loss 100 ml Other 850 ml # Voids 4 # Bowel Movements 10 Result Diagram: 06/21/16 0600 06/21/16 0600 Assessment & Plan Impression s/p laparotomy and YEN Postop ileus, resolving Problems: Plan Advance to full liquid diet Continue TPN OOB/ambulate Wean off TPN once taking adquate po calories VTE Prophylaxis: Sub-Q Enoxaparin Resuscitation Status: DNR/DNI:Do Not Resuscitate/Intubate Marlon Turner MD Jun 22, 2016 08:20
[2016-06-22 09:12] LABS: Mean Corpuscular Hemoglobin 31.2 pg (27.0-35.0)
--- NOTE | 2016-06-22 10:22 | PCM.PNMED ---
Subjective Date of Service Jun 22, 2016 Subjective Pt doing well this AM. He has not had any bowel movements today so far, however he is passing gas. He is tolerating clear liquids well. Pt denies any nausea, vomiting, and abdominal pain. Pt states he is feeling more and more hungry. He has no complaints or concerns at this time. Exam Vital Signs Vital Sign - Last Date Time Temp Pulse Resp B/P Pulse Ox O2 Delivery O2 Flow Rate FiO2 06/22/16 09:29 36.6 72 18 142/71 97 Room Air 06/17/16 22:51 1.00 Intake and Output 06/21/16 06/21/16 06/22/16 Cumulative From/Thru 15:00 23:00 07:00 06/07/16 09:24 - 06/22/16 04:32 Intake Total 0 ml 957 ml 639 ml 96514 ml Output Total 900 ml 400 ml 44642 ml Balance -900 ml 557 ml 639 ml 2366 ml Intake Oral 400 ml 3697 ml IV Total 36 ml 02298 ml TPN/PPN 0 ml 557 ml 603 ml 7178 ml Output Urine Total 550 ml 400 ml 60256 ml Urine/Stool Mix 500 ml Gastric Drainage Total 350 ml 69805 ml Emesis 50 ml Estimated Blood Loss 100 ml Other 850 ml # Voids 4 # Bowel Movements 2 10 Exam GENERAL: NAD, Pt laying in bed comfortably HEENT: AT/NC, PERRLA, EOMI, Mucus Membranes are moist CARDIAC: RRR; No M/R/G PULM: CTAB; No wheezes or rhonchi bilaterally ABD: Soft, Nontender, Nondistended, Positive bowel sounds in all quadrants, No Hepatosplenomegaly appreciated NEURO: Alert and oriented x3; Following all commands PSYCH: Normal mood and affect IVs and Medications Medications Reviewed: Medications were reviewed in detail Lab and Diagnostics Result Diagram: 06/22/16 0550 06/22/16 0550 X-Rays, CTs and MRIs Xray abdomen, 1 view on 06/19/16 FINDINGS: Surgical changes and devices: NG tube projects past the GE junction and is looped within the body of the stomach. Bowel: Multiple dilated loops of small bowel noted compatible with bowel obstruction. Soft tissues: No suspicious abdominal calcifications. Visualized solid organ contours appear normal in size. Bones: No suspicious bony lesions. IMPRESSION: NG tube projects rest the GE junction. Dilated loops of small bowel compatible with small bowel obstruction. Dictated by: Ilana Rockwell MD, PhD on 06/19/2016 at 17:57 Xrays, acute abdominal series on 06/20/16 FINDINGS: Surgical changes and devices: Enteric tube with the tip in the distal stomach. Right PICC line with the tip projecting in the lower SVC. Chest: Bibasilar patchy opacities. Heart size is normal. No pleural effusions. No pneumoperitoneum. Abdomen: Mildly prominent left-sided small bowel loops which appear mildly improved since 06/15/16. No definite bowel obstruction at this time. Scattered air -fluid levels Bones: No suspicious bony lesions. IMPRESSION: Scattered air-fluid levels and mildly prominent small bowel loops although appear improved since 06/15/16. Recommend clinical correlation, and continued radiographic followup as the patient's symptoms warrant Dictated by: Theo Ellsworth M.D. on 06/20/2016 at 14:26 Additional Diagnostics DATE OF SURGERY: 06/08/2016 PREOPERATIVE DIAGNOSIS(ES): Small bowel obstruction. POSTOPERATIVE DIAGNOSIS(ES): Small bowel obstruction. PROCEDURE PERFORMED: 1. Laparotomy. 2. Open lysis of adhesions. 3. Rectus sheath block with liposomal bupivacaine. SURGEON: Carolee Anderson MD SOCIAL MEDIA ANALYST: Aditi Roe PA-C FINDINGS: 1. Severe matted adhesions predominantly located within the right lower quadrant of the abdomen. 2. Meckel's diverticulum, nonobstructing. Assessment & Plan Brandan is an 89yo male with a history of recurrent small bowel obstructions, hypertension, bilateral carotid artery stenosis, multivessel CAD who has been admitted for the treatment of a small bowel obstruction for which he underwent laparotomy with lysis of adhesions of 06/08/2016. Unfortunately, he has had a post operative ileus for which he had an NG tube which was removed on the morning of 06/17/16 and he tolerated clear liquids on 06/18/16. His nausea and distention returned on 06/19/16 for which a NG tube was placed and is no longer is place. 1. Post Operative Ileus - Improving slowly - General Surgery following - Pt is tolerating clear liquids well, will advance diet to full liquids today - Case discussed today with Surgeon, Dr. Turner, and will advance diet further tomorrow to soft if pt is able to tolerate full liquids today - Continue TPN for now, pharmacy managing this - Will check a BMP today and tomorrow, this should be checked daily since pt is on TPN - Monitor closely - Pt to ambulate as much as possible today 2. Small Bowel Obstruction - Resolved - S/p Laparotomy and Open lysis of adhesions on 06/08/16 - General Surgery following - Continue TPN for now - See #1 3. Essential Hypertension - Well controlled - Continue Lisinopril - Continue to monitor BP closely 4. Coronary Artery Disease - Continue Aspirin - Continue Statin therapy 5. Disposition - Anticipate discharge to home with home health in 2-3 more days, once he is tolerating a regular PO diet and is no longer requiring TPN VTE Prophylaxis: Sub-Q Enoxaparin VTE Mechanical Devices: Intermittant Pneumatic CD Resuscitation Status: DNR/DNI:Do Not Resuscitate/Intubate Emir Nix MD Jun 22, 2016 10:22
[2016-06-22] MEDS ORDERED: 0.9% Sodium Chloride 250 ML ONE (11:12)
--- NOTE | 2016-06-22 14:49 | NUR ---
Diet advanced/GI Diet advanced to [place] this morning, pt reports he feels he's tolerating this diet well. Denies any nausea. Pt did c/o LUQ discomfort, relieved by sitting on toilet and passing gas/having a BM. Pt educated to notify this RN if nausea does present and he voices understanding.
--- NOTE | 2016-06-22 15:43 | NUR ---
Communication with niece Spoke with niece, Thelma Sanchez ([phone]) with pt's consent and gave update on pt's condition.
[2016-06-22] MEDS: Total Parenteral Nutrition 1 BAG IV SCH (21:00)
[2016-06-22] MEDS: TPN Per Pharmacist XX SCH (21:00)
[2016-06-23 00:09] VITALS: PULSE 69
[2016-06-23 02:00] VITALS: BP 149/67; PULSE 69; RESP 20; O2SAT 94
[2016-06-23 05:26] VITALS: BP 158/71; PULSE 73; RESP 20; O2SAT 95
--- NOTE | 2016-06-23 06:28 | NUR ---
activity Pt up to commode to urinate, steady on feet. No complaints of pain or discomfort. Will continue to monitor.
[2016-06-23 06:49] LABS: Magnesium 1.8 mg/dL (1.6-2.6); Phosphorus 2.8 mg/dL (2.5-4.9)
--- NOTE | 2016-06-23 08:19 | PCM.PNSURG ---
Subjective Date of Service: Jun 23, 2016 Date of Service: Jun 23, 2016 Visit Information: Reason for Visit: Postop Care PROCEDURE PERFORMED: 06/08/16 1. Laparotomy. 2. Open lysis of adhesions. 3. Rectus sheath block with liposomal bupivacaine. Post-Op Day # 15 Date of Admission: Jun 07, 2016 at 14:15 Subjective: The patient has no complaints. BM's several a day (formed), Denies N/V, tolerating Full liquid diet. NG accidently pulled out evening06/20/16 Postop General: No Complaints Gastrointestinal: Tolerating Oral Feedings, No N/V, Normal Bowel Movement Postop Activity: Ambulates with Assist Device Objective Vital Sign- Last 8 Hours Date Time Temp Pulse Resp B/P Pulse Ox O2 Delivery O2 Flow Rate FiO2 06/23/16 05:26 36.5 73 20 158/71 95 Room Air 06/23/16 02:00 36.8 69 20 149/67 94 Room Air 06/23/16 00:09 69 Intake and Output- Last 8 Hour 06/23/16 Cumulative From/Thru 07:00 06/07/16 09:24 - 06/22/16 19:32 Intake Total 30520 ml Output Total 41437 ml Balance 3077 ml Intake Oral 4328 ml IV Total 99689 ml TPN/PPN 7957 ml Output Urine Total 90690 ml Urine/Stool Mix 500 ml Gastric Drainage Total 16770 ml Emesis 50 ml Estimated Blood Loss 100 ml Other 850 ml # Voids 4 # Bowel Movements 14 General: Alert, No Acute Distress Lungs: Clear to Auscultation Abdomen: Soft, Appropriately tender, Non-distended SURGICAL WOUND : Wound General Appearence: Steri Strips, Well Approximated, Incision Healing Extremities: Warm, Thigh&Calf Soft/Nontender Neuro: Grossly Neurologically Intact Catheters: None Result Diagram: 06/22/16 0550 06/23/16 0540 Lab & Micro Results: WBC 12.0 - 8.1 Hct 32.3 BMP within normal limits Diagnostics: 06/20/15 Abdominal Series IMPRESSION: Scattered air-fluid levels and mildly prominent small bowel loops although appear improved since 06/15/16. Recommend clinical correlation, and continued radiographic followup as the patient's symptoms warrant Assessment & Plan Impression 89 yo male Recurrent SBO POD# 15 S/P lysis of adhesions with expected postop ileus, resolving Secondary Diagnosis: recurrent SBO x6, Bilateral carotid stenoses hypertension multivessel CAD, [place] July 2013 Problems: Plan 1. Continue Full liquid diet 2. Wean off TPN once taking adquate po calories 3. Transition diet if continues to tolerate full liquid and having bowel movements 4. Continue to ambulate tid 5. Discharge disposition Home with VNS or Rehab 1-2 days VTE Prophylaxis: Sub-Q Enoxaparin Resuscitation Status: DNR/DNI:Do Not Resuscitate/Intubate Aditi Roe PA-C Jun 23, 2016 08:19
--- NOTE | 2016-06-23 11:29 | PCM.PHAPRO ---
Progress TPN TPN per Pharmacy Note: - TPN was not documented yesterday so this documentation contains both yesterday 's (06/22/16) and today's TPN - Changes made between the two were a 50% decrease in macros from 06/22 to per dietary, increase in NaCl and increase in KPhos 06/22/16 PARENTERAL NUTRITION ORDERS 9 - Standard Hang Time: 2100 Substrates Total kcal: 1750 AMINO ACIDS 100 g DEXTROSE 250 g Total Volume (mL): 1500 LIPIDS 50 g Sterile Water for Injection QS mL To Infuse Over (hrs): 24 Total Volume 1500 mL At at a rate of (mL/hr): 63 Additives Sodium Chloride 50 mEq "typical" daily requirements Sodium Acetate 0 mEq Sodium 50-120mEq Potassium Chloride 10 mEq Potassium 60-120mEq Potassium Phosphate 15 mEq Phosphate 20-40mEq Calcium Gluconate 9 mEq Magnesium 8-32mEq Magnesium Sulfate 12 mEq Calcium 9-22mEq Acetate* 80-120mEq Chloride* 80-120mEq Regular Insulin units *Depending on acid-base status Famotidine 20 mg Multivitamins 1 std dose Insulin Regimen Trace Elements 1 std dose none Thiamine mg Regular Low Intensity Subcut Folic Acid mg Regular Medium Intensity Subcut Ascorbic Acid mg Regular High Intensity Subcut Regular Insulin Infusion Other: Special Instructions: To be infused via central line only. For delay or inturruption of TPN contact the pharmacist for alternative replacement solution. Signature Date: SARAH BROWN [id number] [facility] 06/23/16 PARENTERAL NUTRITION ORDERS 10 23-Jun-16 Standard Hang Time: 2100 Substrates Total kcal: 875 AMINO ACIDS 50 g DEXTROSE 125 g Total Volume (mL): 1500 LIPIDS 25 g Sterile Water for Injection QS mL To Infuse Over (hrs): 24 Total Volume 1500 mL At at a rate of (mL/hr): 63 Additives Sodium Chloride 60 mEq "typical" daily requirements Sodium Acetate 0 mEq Sodium 50-120mEq Potassium Chloride 10 mEq Potassium 60-120mEq Potassium Phosphate 20 mEq Phosphate 20-40mEq Calcium Gluconate 9 mEq Magnesium 8-32mEq Magnesium Sulfate 12 mEq Calcium 9-22mEq Acetate* 80-120mEq Chloride* 80-120mEq Regular Insulin units *Depending on acid-base status Famotidine 20 mg Multivitamins 1 std dose Insulin Regimen Trace Elements 1 std dose none Thiamine mg Regular Low Intensity Subcut Folic Acid mg Regular Medium Intensity Subcut Ascorbic Acid mg Regular High Intensity Subcut Regular Insulin Infusion Other: Special Instructions: To be infused via central line only. For delay or inturruption of TPN contact the pharmacist for alternative replacement solution. Signature Date: SARAH BROWN [id number] [facility] Pharmacy will continue to follow, thanks! Shannon Rubio PharmD Jun 23, 2016 11:29
--- NOTE | 2016-06-23 12:16 | NUR ---
Social Work-readiness for discharge: Data:EMR Reviewed. Pt is on day 16 of hospitalization for PSBO per H&P. Per MD, pt may be ready to discharge in the next day or two. working on advancing pt's diet and taking pt off the TPN. PT continues to work with pt and recommend home with HH services. Pt has been set up with [facility] for RN,PT,OT, and [employer]. SW left message with pt's juan Renee to discuss. F2F in folder. SW will continue to follow. Assessment:Pt who would benefit from HH. Plan:Pt to discharge home when medically stable via POV. working on advancing pt's diet to get pt off TPN. [facility] has been set up for RN,PT, OT,and [employer]. SW has left message with juan Renee. F2F in folder. SW will continue to follow. QUE Mascorro
--- NOTE | 2016-06-23 12:53 | NUR ---
NUTRITION FOLLOW-UP ASSESS: 89 yo M admitted with abdominal pain, n/v and diarrhea. He is s/p open lysis of adhesions for partial SBO. TPN was initiated on 06/14 and appears to be well tolerated. Pt was doing well and had NGT removed with diet advance to soft. Unfortunately, pt began to experience increased nausea and distended abdomen. NGT was placed 06/19 and diet downgraded to NPO status. NGT fell out 06/20. Pts diet advanced to full liquids on 06/22. Pt PO intake seems to be improving between 25-100%, and pt states feeling hungrier and denies any N/V. TPN macronutrients will be decreased 06/23 d/t diet advancement and tolerance. Surgeon plans to continue advancing diet if full liquids tolerated and BMs continue. Pt can likely have TPN removed 06/24 if diet continues to advance. PMHX: Recurrent SBO x6, HTN, CAD, laparotomy, bilateral carotid artery stenosis. LABS: Reviewed. Flight Engineer 0.55,Gluc 120, Ca 8.1, Alb 2.9 MEDS: Reviewed. Lopressor, Lovenox. GI: BM x 4 (06/22) WT: 64.9 kg BMI: 23.8kg/m2 Admit wt: 68.4 kg DIET: Advanced to full liquids (06/22) PO 25-100% TPN: Current TPN order of 250 g dextrose, 100 g protein and 50 g lipids to provide 1750 kcals and 100 g protein per day (~90% kcal and 100% pro needs) EST. NEEDS: Kcals: 0866-2743 kcal/day (25-30 kcal/kg) Protein: 80-105 g/day (1.2-1.5 g/kg) Fluids: 8989-2511 ml/day (25-30 ml/kg) NUTRITION DIAGNOSIS: 1) Inadequate oral intake related to decreased ability to consume sufficient energy as evidenced by current NPO diet status - IMPROVING. 2) Altered GI function related to recurrent SBO's, as evidenced by need for surgery, current ileus and need for bowel rest - IMPROVING NUTRITION INTERVENTION: 1) Recommend reducing TPN to 125g dex, 50g AA, 25g lipids to provide 875 kcal and 50g pro meeting 50% of kcal and protein needs. Diet advanced to full liquids with PO intake improving. 2) Add Ensure supplement on all trays to ensure adequate protein and kcal intake. 3) Continue to monitor diet advancement. 4) If PO intake continues to meet 50% of estimated needs, recommend stopping TPN on 06/24. MONITOR / EVAL: Diet advancement / tolerance, TPN tapering, labs, weight, GI and nutrition status. Continue to monitor per high nutrition risk guidelines. Addendum: 06/23/16 at [address] Auxiliary student documentation reviewed. I agree with above documentation. Margarito Garzon, DOUGIE, CD
--- NOTE | 2016-06-23 13:46 | PCM.PNMED ---
Subjective Date of Service Jun 23, 2016 Subjective Brandan has been ambulating already today in the castaneda. He reports that he has been passing flatus several times today and had a small volume semi-formed bowel movement. Brandan denies any nausea or vomiting. Exam Vital Signs Vital Sign - Last Date Time Temp Pulse Resp B/P Pulse Ox O2 Delivery O2 Flow Rate FiO2 06/23/16 05:26 36.5 73 20 158/71 95 Room Air 06/17/16 22:51 1.00 Intake and Output 06/22/16 06/22/16 06/23/16 Cumulative From/Thru 15:00 23:00 07:00 06/07/16 09:24 - 06/22/16 19:32 Intake Total 200 ml 1336 ml 64998 ml Output Total 500 ml 325 ml 82485 ml Balance -300 ml 1011 ml 3077 ml Intake Oral 200 ml 431 ml 4328 ml IV Total 126 ml 13932 ml TPN/PPN 779 ml 7957 ml Output Urine Total 500 ml 325 ml 78913 ml Urine/Stool Mix 500 ml Gastric Drainage Total 83517 ml Emesis 50 ml Estimated Blood Loss 100 ml Other 850 ml # Voids 4 # Bowel Movements 1 3 14 Exam General: Elderly male seated in the bedside chair eating breakfast upon my entering the room Awoken easily. No acute distress. Smiling and pleasant. TPN running. HEENT: Moist mucus membranes, sclera anicteric Cardiac: RRR without murmur, rub, or gallop. Respiratory: Good inspiratory effort, no wheezes, rales, or rhonchi. Abdomen: Normoactive bowel tones.Very mildly distended. Nontender. Midline surgical wound with edges well approximated without erythema or drainage. Extremities: No clubbing, edema, or cyanosis. Neuro: Awake, alert, and oriented. Moves all 4 extremities with ease. IVs and Medications Medications Reviewed: Medications were reviewed in detail Lab and Diagnostics Result Diagram: 06/22/16 0550 06/23/16 0540 X-Rays, CTs and MRIs Xray abdomen, 1 view on 06/19/16 FINDINGS: Surgical changes and devices: NG tube projects past the GE junction and is looped within the body of the stomach. Bowel: Multiple dilated loops of small bowel noted compatible with bowel obstruction. Soft tissues: No suspicious abdominal calcifications. Visualized solid organ contours appear normal in size. Bones: No suspicious bony lesions. IMPRESSION: NG tube projects rest the GE junction. Dilated loops of small bowel compatible with small bowel obstruction. Dictated by: Ilana Rockwell MD, PhD on 06/19/2016 at 17:57 Xrays, acute abdominal series on 06/20/16 FINDINGS: Surgical changes and devices: Enteric tube with the tip in the distal stomach. Right PICC line with the tip projecting in the lower SVC. Chest: Bibasilar patchy opacities. Heart size is normal. No pleural effusions. No pneumoperitoneum. Abdomen: Mildly prominent left-sided small bowel loops which appear mildly improved since 06/15/16. No definite bowel obstruction at this time. Scattered air -fluid levels Bones: No suspicious bony lesions. IMPRESSION: Scattered air-fluid levels and mildly prominent small bowel loops although appear improved since 06/15/16. Recommend clinical correlation, and continued radiographic followup as the patient's symptoms warrant Dictated by: Theo Ellsworth M.D. on 06/20/2016 at 14:26 Additional Diagnostics DATE OF SURGERY: 06/08/2016 PREOPERATIVE DIAGNOSIS(ES): Small bowel obstruction. POSTOPERATIVE DIAGNOSIS(ES): Small bowel obstruction. PROCEDURE PERFORMED: 1. Laparotomy. 2. Open lysis of adhesions. 3. Rectus sheath block with liposomal bupivacaine. SURGEON: Carolee Anderson MD STEAM BONE PRESS TENDER: Aditi Roe PA-C FINDINGS: 1. Severe matted adhesions predominantly located within the right lower quadrant of the abdomen. 2. Meckel's diverticulum, nonobstructing. Assessment & Plan Brandan is an 89yo male with a history of recurrent small bowel obstructions, hypertension, bilateral carotid artery stenosis, multivessel CAD who has been admitted for the treatment of a small bowel obstruction for which he underwent laparotomy with lysis of adhesions of 06/08/2016. Unfortunately, he has had a post operative ileus for which he had an NG tube which was removed on the morning of 06/17/16 and he tolerated clear liquids on 06/18/16. His nausea and distention returned on 06/19/16 for which a NG tube was placed and is no longer is place. 1. Post Operative Ileus, Improving - General Surgery following - Pt is tolerating full liquids well, will advance as tolerated as indicated by general surgery - Continue TPN until he is able to consume adequate PO intake, pharmacy managing - Monitor BMP daily while on TPN - Monitor abdominal distension - Pt to ambulate as much as possible 2. Small Bowel Obstruction, Resolved - S/p Laparotomy and Open lysis of adhesions on 06/08/16 - General Surgery following - See #1 3. Essential Hypertension, chronic and well controlled - Continue Lisinopril - Continue to monitor BP closely 4. Coronary Artery Disease - Continue Aspirin - Continue Statin therapy Disposition: Anticipate discharge to home with home health in 2-3 more days, once he is tolerating a regular PO diet and is no longer requiring TPN VTE Prophylaxis: Sub-Q Enoxaparin VTE Mechanical Devices: Intermittant Pneumatic CD Resuscitation Status: DNR/DNI:Do Not Resuscitate/Intubate Time spent 30 minutes Attending Statement I have seen and evaluated patient at bedside, in addition to directly supervising care provided by resident physician. I agree with above documentation. Flower George DO Jun 23, 2016 13:46 Gavino Ventura DO Jun 23, 2016 16:51
[2016-06-23 15:04] VITALS: BP 164/71; PULSE 67; RESP 18; O2SAT 95
[2016-06-23] MEDS: Total Parenteral Nutrition 1 BAG IV SCH (21:23)
[2016-06-23] MEDS: TPN Per Pharmacist XX SCH (21:24)
[2016-06-23 22:31] VITALS: BP 149/69; PULSE 69; RESP 20; O2SAT 97
--- NOTE | 2016-06-24 05:28 | NUR ---
BM/Ambulate in room/ Pt had an extra lare semi formed bm. Encouraged ambulation with fww around room. Pt denies chest pain, sob, n/v and abd discomfort. Pt TPN administered and verified with another RN. Hourly rounding done. Will continue to monitor.
[2016-06-24 05:34] VITALS: BP 171/76; PULSE 76; RESP 20; O2SAT 95
[2016-06-24 06:34] LABS: Magnesium 1.9 mg/dL (1.6-2.6); Phosphorus 2.9 mg/dL (2.5-4.9)
--- NOTE | 2016-06-24 07:53 | PCM.PNMED ---
Subjective Date of Service Jun 24, 2016 Subjective Per nursing, Brandan had a large semi-formed bowel movement yesterday afternoon. He has done well with ambulating >3 times in the castaneda yesterday. Brandan denies any nausea or vomiting. Exam Vital Signs Vital Sign - Last Date Time Temp Pulse Resp B/P Pulse Ox O2 Delivery O2 Flow Rate FiO2 06/24/16 05:34 36.7 76 20 171/76 95 Room Air Intake and Output 06/23/16 06/23/16 06/24/16 Cumulative From/Thru 15:00 23:00 07:00 06/07/16 09:24 - 06/24/16 05:11 Intake Total 100 ml 2658 ml 770 ml 15870 ml Output Total 500 ml 60355 ml Balance -400 ml 2658 ml 770 ml 6105 ml Intake Oral 100 ml 1102 ml 5530 ml IV Total 770 ml 95182 ml TPN/PPN 1556 ml 9513 ml Output Urine Total 500 ml 11485 ml Urine/Stool Mix 500 ml Gastric Drainage Total 29711 ml Emesis 50 ml Estimated Blood Loss 100 ml Other 850 ml # Voids 5 9 # Bowel Movements 0 1 15 Exam General: Elderly male resting comfortably in bed upon my entering the room. No acute distress. Smiling and pleasant. TPN running. HEENT: Moist mucus membranes, sclera anicteric Cardiac: RRR without murmur, rub, or gallop. Respiratory: Good inspiratory effort, no wheezes, rales, or rhonchi. Abdomen: Normoactive bowel tones. Trace distension. Nontender. Midline surgical wound with edges well approximated without erythema or drainage, there are [address] over the inferior portion of the wound. Extremities: No clubbing, edema, or cyanosis. Neuro: Awake, alert, and oriented. Normal speech. Moves all 4 extremities with ease. IVs and Medications Medications Reviewed: Medications were reviewed in detail Lab and Diagnostics Result Diagram: 06/22/16 0550 06/24/16 0540 X-Rays, CTs and MRIs Xray abdomen, 1 view on 06/19/16 FINDINGS: Surgical changes and devices: NG tube projects past the GE junction and is looped within the body of the stomach. Bowel: Multiple dilated loops of small bowel noted compatible with bowel obstruction. Soft tissues: No suspicious abdominal calcifications. Visualized solid organ contours appear normal in size. Bones: No suspicious bony lesions. IMPRESSION: NG tube projects rest the GE junction. Dilated loops of small bowel compatible with small bowel obstruction. Dictated by: Ilana Rockwell MD, PhD on 06/19/2016 at 17:57 Xrays, acute abdominal series on 06/20/16 FINDINGS: Surgical changes and devices: Enteric tube with the tip in the distal stomach. Right PICC line with the tip projecting in the lower SVC. Chest: Bibasilar patchy opacities. Heart size is normal. No pleural effusions. No pneumoperitoneum. Abdomen: Mildly prominent left-sided small bowel loops which appear mildly improved since 06/15/16. No definite bowel obstruction at this time. Scattered air -fluid levels Bones: No suspicious bony lesions. IMPRESSION: Scattered air-fluid levels and mildly prominent small bowel loops although appear improved since 06/15/16. Recommend clinical correlation, and continued radiographic followup as the patient's symptoms warrant Dictated by: Theo Ellsworth M.D. on 06/20/2016 at 14:26 Additional Diagnostics DATE OF SURGERY: 06/08/2016 PREOPERATIVE DIAGNOSIS(ES): Small bowel obstruction. POSTOPERATIVE DIAGNOSIS(ES): Small bowel obstruction. PROCEDURE PERFORMED: 1. Laparotomy. 2. Open lysis of adhesions. 3. Rectus sheath block with liposomal bupivacaine. SURGEON: Carolee Anderson MD QUALITY ASSURANCE ENGINEER: Aditi Roe PA-C FINDINGS: 1. Severe matted adhesions predominantly located within the right lower quadrant of the abdomen. 2. Meckel's diverticulum, nonobstructing. Assessment & Plan Brandan is an 89yo male with a history of recurrent small bowel obstructions, hypertension, bilateral carotid artery stenosis, multivessel CAD who has been admitted for the treatment of a small bowel obstruction for which he underwent laparotomy with lysis of adhesions of 06/08/2016. Unfortunately, he has had a post operative ileus for which he had an NG tube which was removed on the morning of 06/17/16 and he tolerated clear liquids on 06/18/16. His nausea and distention returned on 06/19/16 for which a NG tube was placed and is no longer is place. 1. Post Operative Ileus, Improving - General Surgery following - Pt is tolerating full liquids well, will advance as tolerated as indicated by general surgery - Continue TPN until he is able to consume adequate PO intake, pharmacy managing - Monitor BMP daily while on TPN - Monitor abdominal distension which is minimal today - Pt to continue to ambulate as much as possible 2. Small Bowel Obstruction, Resolved - S/p Laparotomy and Open lysis of adhesions on 06/08/16 - General Surgery following - See #1 3. Essential Hypertension, chronic and well controlled - Continue Lisinopril and home metoprolol dosing - Continue to monitor BP closely 4. Coronary Artery Disease - Continue Aspirin - Continue Statin therapy Disposition: Anticipate discharge in 1-2 more days, once he is tolerating a regular PO diet and is no longer requiring TPN VTE Prophylaxis: Sub-Q Enoxaparin VTE Mechanical Devices: Intermittant Pneumatic CD Resuscitation Status: DNR/DNI:Do Not Resuscitate/Intubate Time spent 25 minutes Attending Statement I have seen and evaluated patient at bedside and directly supervised in the care provided by resident physician. I agree with above documentation. Flower George DO Jun 24, 2016 07:33 Gavino Ventura DO Jun 24, 2016 13:39
--- NOTE | 2016-06-24 09:11 | PCM.PNSURG ---
Subjective Visit Information: Reason for Visit PSBO Surgery/Surgery Date Post-Op Day # Date of Admission: Jun 07, 2016 at 14:15 Hospital Day # Subjective: Another large BM. No nausea. Tolerated FLD x 48h at this point. Objective Vital Sign- Last 8 Hours Date Time Temp Pulse Resp B/P Pulse Ox O2 Delivery O2 Flow Rate FiO2 06/24/16 05:34 36.7 76 20 171/76 95 Room Air Intake and Output- Last 8 Hour 06/24/16 Cumulative From/Thru 07:00 06/07/16 09:24 - 06/24/16 05:11 Intake Total 770 ml 92836 ml Output Total 81394 ml Balance 770 ml 6105 ml Intake Oral 5530 ml IV Total 770 ml 45065 ml TPN/PPN 9513 ml Output Urine Total 34919 ml Urine/Stool Mix 500 ml Gastric Drainage Total 04497 ml Emesis 50 ml Estimated Blood Loss 100 ml Other 850 ml # Voids 9 # Bowel Movements 15 General: Alert, Cooperative, No Acute Distress Abdomen: Soft, Distended, Tympanic Result Diagram: 06/22/16 0550 06/24/16 0540 Assessment & Plan Impression POD16 lysis of adhesions for SBO Problems: Plan Soft diet today (ordered). If he tolerates it, consider discharge as soon as tomorrow. VTE Prophylaxis: Sub-Q Enoxaparin Resuscitation Status: DNR/DNI:Do Not Resuscitate/Intubate Carolee Anderson MD Jun 24, 2016 09:11
--- NOTE | 2016-06-24 10:17 | NUR ---
Social Work-readiness for discharge: Data:EMR Reviewed. Pt is on day 17 of hospitalization for PSBO per H&P. Per MD, pt may be ready to discharge in the next couple days. MD is working on advancing diet and will be stopping TPN this evening. PT has cleared pt for home with HH Services. Pt has been ambulating with nursing in the hallways. SW was able to get in touch with niece Judy today to further discuss plan. Judy is in agreement for pt to return home with HH at discharge. SW explained it may be a couple more days while they work on advancing diet. Pt has been using a fww and Judy states they have one at home for him to use. Pt's niece to provide transport home at discharge. F2F in the folder. SW will continue to follow. Assessment:Pt who would benefit from HH. Plan:Pt to discharge home when medically stable via POV. [facility] and FISHERIES BIOLOGIST. F2F in the folder. SW will continue to follow. QUE Mascorro
--- NOTE | 2016-06-24 12:32 | NUR ---
soft diet pt states that he can't eat a soft diet yet. pt states that he has become "very gassy"
[2016-06-24 14:11] VITALS: BP 116/65; PULSE 72; RESP 18; O2SAT 95
--- NOTE | 2016-06-24 14:35 | NUR ---
NUTRITION FOLLOW-UP ASSESS: 89 yo M admitted with abdominal pain, n/v and diarrhea. He is s/p open lysis of adhesions for partial SBO. TPN was initiated on 06/14 and was well tolerated. Pt was doing well and had NGT removed with diet advance to soft. Unfortunately, pt began to experience increased nausea and distended abdomen. NGT was placed 06/19 and diet downgraded to NPO status. NGT fell out 06/20. Pts diet advanced to full liquids on 06/22. Pt continues to tolerate full liquids. PO remaining stable w/ average 70% meals consumed. TPN macronutrients decreased 06/23 d/t diet advancement and tolerance. Diet advanced to soft in morning of 06/24 but pt now reports he is unable to tolerate soft diet d/t gas per RN note. Will recommend d/c TPN d/t diet advancement and tolerance. PMHX: Recurrent SBO x6, HTN, CAD, laparotomy, bilateral carotid artery stenosis. LABS: Reviewed. Sizing Sponger 0.60, Gluc 113, Alb 3.0 MEDS: Reviewed. Lopressor, Lovenox, Lisinopril. GI: BM x 1 (06/24) WT: 64.9 kg BMI: 23.8kg/m2 Admit wt: 68.4 kg DIET: Advanced to soft (06/24). PO 25-100% on full liquid diet. TPN: Current TPN order of 125g dex, 50g AA, 25g lipids to provide 875 kcal and 50g pro meeting 50% of kcal and protein needs. EST. NEEDS: Kcals: 5111-5313 kcal/day (25-30 kcal/kg) Protein: 80-105 g/day (1.2-1.5 g/kg) Fluids: 5712-9868 ml/day (25-30 ml/kg) NUTRITION DIAGNOSIS: 1) Inadequate oral intake related to decreased ability to consume sufficient energy as evidenced by current NPO diet status - IMPROVING. 2) Altered GI function related to recurrent SBO's, as evidenced by need for surgery, current ileus and need for bowel rest - IMPROVING NUTRITION INTERVENTION: 1) Recommend discontinuing TPN d/t diet advancement to soft w/ average PO intake of 70% on full liquids. 2) Continue Ensure supplement on all trays to ensure adequate protein and kcal intake. 3) Consider restarting nutrition support if pt is unable to tolerate at least 50% of soft meals over the next 2-3 days. MONITOR / EVAL: Diet tolerance, labs, weight, GI and nutrition status. Continue to monitor per high nutrition risk guidelines. Addendum: 06/24/16 at [address] Auxiliary student documentation reviewed. I agree with above documentation. Margarito Garzon, DOUGIE, CD
[2016-06-24 20:12] VITALS: BP 126/65; PULSE 66; RESP 18; O2SAT 97
[2016-06-24] MEDS ORDERED: 0.9% Sodium Chloride 250 ML ONE (22:20)
--- NOTE | 2016-06-25 05:44 | NUR ---
Bowel/Ambulation Encourage pt to increase intake of soft foods. Pt has been tolerating apple sauce and pudding well. Pt had a large semi-formed bowel movement. Pt had 3 laps around hallways with ANALOG CIRCUIT DESIGNER. HS meds administered as scheduled, picc line on TKO. Denies chest pain, sob, n/v and abd discomfort. Hourly rounding done and pt has slept most of the night.
[2016-06-25 06:16] VITALS: BP 148/72; PULSE 66; RESP 18; O2SAT 95
--- NOTE | 2016-06-25 08:10 | PCM.PNMED ---
Subjective Date of Service Jun 25, 2016 Subjective Brandan reports that he has had another semi formed bowel movement and that this was fairly large volume, nursing notes are consistent with his report. He denies any nausea or vomiting and states that he has a good appetite. Exam Vital Signs Vital Sign - Last Date Time Temp Pulse Resp B/P Pulse Ox O2 Delivery O2 Flow Rate FiO2 06/25/16 06:16 36.7 66 18 148/72 95 Room Air Intake and Output 06/24/16 06/24/16 06/25/16 Cumulative From/Thru 15:00 23:00 07:00 06/07/16 09:24 - 06/25/16 06:44 Intake Total 0 ml 1566 ml 233 ml 55782 ml Output Total 750 ml 1200 ml 29409 ml Balance -750 ml 366 ml 233 ml 5954 ml Intake Oral 0 ml 610 ml 233 ml 6373 ml IV Total 131 ml 90884 ml TPN/PPN 825 ml 86248 ml Output Urine Total 750 ml 1200 ml 96647 ml Urine/Stool Mix 500 ml Gastric Drainage Total 30922 ml Emesis 50 ml Estimated Blood Loss 100 ml Other 850 ml # Voids 2 11 # Bowel Movements 1 06 08 17 Exam General: Elderly male who appears younger than his stated age sitting upright in the bedside chair upon my entering the room. No acute distress. Smiling and pleasant HEENT: Moist mucus membranes, sclera anicteric Cardiac: RRR without murmur, rub, or gallop. Respiratory: Good inspiratory effort, no wheezes, rales, or rhonchi. Abdomen: Normoactive bowel tones. Nondistended. Nontender. Midline surgical wound with edges well approximated without erythema or drainage, there are [address] over the inferior portion of the wound. Extremities: No clubbing, edema, or cyanosis. Neuro: Awake, alert, and oriented. Normal speech. Moves all 4 extremities with ease IVs and Medications Medications Reviewed: Medications were reviewed in detail Lab and Diagnostics Result Diagram: 06/22/16 0550 06/25/16 0555 X-Rays, CTs and MRIs Xray abdomen, 1 view on 06/19/16 FINDINGS: Surgical changes and devices: NG tube projects past the GE junction and is looped within the body of the stomach. Bowel: Multiple dilated loops of small bowel noted compatible with bowel obstruction. Soft tissues: No suspicious abdominal calcifications. Visualized solid organ contours appear normal in size. Bones: No suspicious bony lesions. IMPRESSION: NG tube projects rest the GE junction. Dilated loops of small bowel compatible with small bowel obstruction. Dictated by: Ilana Rockwell MD, PhD on 06/19/2016 at 17:57 Xrays, acute abdominal series on 06/20/16 FINDINGS: Surgical changes and devices: Enteric tube with the tip in the distal stomach. Right PICC line with the tip projecting in the lower SVC. Chest: Bibasilar patchy opacities. Heart size is normal. No pleural effusions. No pneumoperitoneum. Abdomen: Mildly prominent left-sided small bowel loops which appear mildly improved since 06/15/16. No definite bowel obstruction at this time. Scattered air -fluid levels Bones: No suspicious bony lesions. IMPRESSION: Scattered air-fluid levels and mildly prominent small bowel loops although appear improved since 06/15/16. Recommend clinical correlation, and continued radiographic followup as the patient's symptoms warrant Dictated by: Theo Ellsworth M.D. on 06/20/2016 at 14:26 Additional Diagnostics DATE OF SURGERY: 06/08/2016 PREOPERATIVE DIAGNOSIS(ES): Small bowel obstruction. POSTOPERATIVE DIAGNOSIS(ES): Small bowel obstruction. PROCEDURE PERFORMED: 1. Laparotomy. 2. Open lysis of adhesions. 3. Rectus sheath block with liposomal bupivacaine. SURGEON: Carolee Anderson MD CRIMINAL JUSTICE DEPARTMENT CHAIR: Aditi Roe PA-C FINDINGS: 1. Severe matted adhesions predominantly located within the right lower quadrant of the abdomen. 2. Meckel's diverticulum, nonobstructing. Assessment & Plan Brandan is an 89yo male with a history of recurrent small bowel obstructions, hypertension, bilateral carotid artery stenosis, multivessel CAD who has been admitted for the treatment of a small bowel obstruction for which he underwent laparotomy with lysis of adhesions of 06/08/2016. Unfortunately, he has had a post operative ileus for which he had an NG tube which was removed on the morning of 06/17/16 and he tolerated clear liquids on 06/18/16. His nausea and distention returned on 06/19/16 for which a NG tube was placed and is no longer is place. 1. Post Operative Ileus, resolved - General Surgery following - Pt is tolerating a soft diet well, will advance as tolerated as indicated by general surgery - TPN discontinued as he has been consuming an adequate portion of his meals - Pt to continue to ambulate as much as possible 2. Small Bowel Obstruction, Resolved - S/p Laparotomy and Open lysis of adhesions on 06/08/16 - General Surgery following 3. Essential Hypertension, chronic and well controlled - Continue Lisinopril and home metoprolol dosing - Continue to monitor BP closely 4. Coronary Artery Disease - Continue Aspirin - Continue Statin therapy Disposition: Anticipate discharge, possibly tomorrow with home health VTE Prophylaxis: Sub-Q Enoxaparin VTE Mechanical Devices: Intermittant Pneumatic CD Resuscitation Status: DNR/DNI:Do Not Resuscitate/Intubate Time spent 20 minutes Attending Statement I have seen and evaluated patient at bedside in addition to directly supervising in the care provided by resident physician. I agree with above documentation. Flower George DO Jun 25, 2016 08:10 Gavino Ventura DO Jun 25, 2016 15:17
[2016-06-25 09:28] VITALS: BP 110/68; PULSE 87; RESP 18; O2SAT 96
[2016-06-25 12:19] VITALS: BP 114/67; PULSE 69; RESP 18; O2SAT 95
[2016-06-25 15:33] VITALS: BP 109/76; PULSE 72
[2016-06-25 17:59] VITALS: BP 109/63; PULSE 70; RESP 23; O2SAT 96
--- NOTE | 2016-06-25 18:29 | NUR ---
Activity/Bowel: Patient up in chair for meals and ambulated in hallway x1. Patient states he feels weak today, but "ok". No BM on this shift, however states he is passing gas. Tolerating soft diet, denies nausea and abdominal pain, BT present.
--- NOTE | 2016-06-25 19:36 | PCM.PNSURG ---
Subjective Visit Information: Reason for Visit PSBO Surgery/Surgery Date Post-Op Day # Date of Admission: Jun 07, 2016 at 14:15 Hospital Day # Subjective: More BM and flatus, tolerating FLD plus small amount soft food. Objective Vital Sign- Last 8 Hours Date Time Temp Pulse Resp B/P Pulse Ox O2 Delivery O2 Flow Rate FiO2 06/25/16 17:59 36.8 70 23 109/63 96 Room Air 06/25/16 15:33 72 109/76 06/25/16 12:19 36.3 69 18 114/67 95 Room Air Intake and Output- Last 8 Hour 06/25/16 Cumulative From/Thru 07:00 06/07/16 09:24 - 06/25/16 06:44 Intake Total 233 ml 47939 ml Output Total 77415 ml Balance 233 ml 5954 ml Intake Oral 233 ml 6373 ml IV Total 28659 ml TPN/PPN 70951 ml Output Urine Total 27725 ml Urine/Stool Mix 500 ml Gastric Drainage Total 33513 ml Emesis 50 ml Estimated Blood Loss 100 ml Other 850 ml # Voids 2 11 # Bowel Movements 1 18 General: Alert, Cooperative, No Acute Distress Abdomen: Soft, Distended Result Diagram: 06/22/16 0550 06/25/16 0555 Assessment & Plan Impression POD17 lysis of adhesions for SBO with ileus which was expected Problems: Plan Soft diet is OK although I suspect he will need to focus on hydration and keep taking nutrition shakes at home, and may continue a mostly liquid diet for a few additional days or even weeks as his body slowly recovers. He is still distended and mildly tympanic but has been passing gas and having BMs for >1 week now. OK to discharge tomorrow if no events overnight. VTE Prophylaxis: Sub-Q Enoxaparin Resuscitation Status: DNR/DNI:Do Not Resuscitate/Intubate Carolee Anderson MD Jun 25, 2016 19:36
[2016-06-25 21:19] VITALS: BP 132/69; PULSE 65; RESP 22; O2SAT 97
--- NOTE | 2016-06-26 02:55 | NUR ---
diet/uneventful night Pt was able to ambulate to the BR with SBA and FWW. pt had passed a lot of gas but no BM this shift; requested a stool softener in AM. midline incision is CDI. denies pain or SOB. pt sleeping in bed at this time. Pt was able to take some bites of his dinner. pt stated that his stomach is not quite ready to take too much solid food yet. Pt had finished his Ensure.
[2016-06-26 05:20] VITALS: BP 117/68; PULSE 67; RESP 20; O2SAT 96
[2016-06-26 06:05] LABS: BASOPHILS % (AUTO) 0.6 % (0-3); EOSINOPHILS % (AUTO) 3.3 % (0-5); MONOCYTES % (AUTO) 9.2 % (4-12); Mean Corpuscular Hemoglobin 31.2 pg (27.0-35.0); Mean Corpuscular Volume 93.6 fL (81-100); NEUTROPHILS % (AUTO) 60.1 % (40-74); Platelet Count 353 bil/L (150-400)
--- NOTE | 2016-06-26 08:29 | PCM.DIMED ---
Flower George DO 06/26/16 0829: Discharge Instructions Date of Service Jun 26, 2016 Dates of Hospitalization Jun 07, 2016 at 14:15 Discharge Diagnosis Discharge Diagnosis Post Operative Ileus, resolved Small Bowel Obstruction, Resolved Status post Laparotomy with lysis of adhesions on 06/08/2016 Essential Hypertension, chronic and well controlled Coronary Artery Disease, stable Medication Instructions You may resume your home medications. We have not added any new medications. Diet Heart Healthy Activity Home Health Phyical Therapy Call your provider Fever or Chills, Shortness of breath, Bleeding, Chest pain, Vomitting, Excessive diarrhea, Weakness (unilateral), Other (No bowel movement for 4 days or more) Patient Instructions Follow-up plan Please call Dr Mondragon's office to schedule a follow up appointment to be seen in 2 weeks from now. Follow-up Provider: Carolee Anderson MD Follow-up with PCP in: 1 week Provider: Irving Mondragon DO Follow-up in: 2 weeks Gavino Ventura DO 06/27/16 0814: Discharge Instructions Attending's Statement Read and agree Flower George DO Jun 26, 2016 08:29 Gavino Ventura DO Jun 27, 2016 08:14
--- NOTE | 2016-06-26 11:19 | NUR ---
Social Work: Discharge Data: Pt is on day 19 of hospitalization. EMR reviewed, pt discussed in rounds. D/C orders are in. LABOR RELATIONS TEACHER called Isabela GRAY and notified Matteo of pt's d/c today, Matteo to bean picker F2F. No further d/c planning needs at this time. LABOR RELATIONS TEACHER will continue to follow if needs arise. Assessment: Pt who is independent at baseline. Plan: Pt will d/c home via POV todya with Isabela GRAY, RN/PT/OT/MATTRESS RENOVATOR. No further d/c planning needs at this time. LABOR RELATIONS TEACHER will continue to follow if needs arise. QUE Reddy
--- NOTE | 2016-06-26 12:33 | NUR ---
transportation for DC this RN has called pt's ride (Thelma) several times and left one message to have her return my calls. unable to reach Thelma at this time, pt is ready to be discharged
[2016-06-26 13:26] VITALS: BP 112/49; PULSE 65; RESP 20; O2SAT 93
--- NOTE | 2016-06-26 15:42 | PCM.DC.MED ---
Discharge Summary Date of Service Jun 26, 2016 Dates of Hospitalization Date of Hospital Admission Jun 07, 2016 at 14:15 Date of Discharge: Jun 26, 2016 Providers: Admitting Physician: Sae Dawkins MD Primary Care Physician: Irving Mondragon DO Attending Physician: Sae Dawkins MD Diagnosis at Time of Discharge Diagnosis at Time of Discharge Post Operative Ileus, resolved Small Bowel Obstruction, Resolved Status post Laparotomy with lysis of adhesions on 06/08/2016 Essential Hypertension, chronic and well controlled Coronary Artery Disease, stable Procedures XRay, CTs & MRIs Xray abdomen 06/07/16: FINDINGS: Surgical changes and devices: Patient is status post right hip arthroplasty. Chest: Lungs are clear. Heart size is normal. No pleural effusions. No pneumoperitoneum. Abdomen: Multiple mildly dilated small bowel loops are present. There is scattered stool within nondistended colon loops. No suspicious calcifications. Visualized solid organ contours appear normal. Bones: No suspicious bony lesions. There is multilevel lumbar spine disc degeneration. IMPRESSION: Findings consistent with evolving mid or distal small bowel obstruction. Dictated by: Yunior Lou M.D. on 06/07/2016 at 10:51 Xray abdomen 06/08/2016 FINDINGS: Surgical changes and devices: NG tube projects to the proximal stomach. Bowel: Proximal loops of small bowel are dilated up to 4.8 cm compatible with small bowel obstruction. Dilated loops of bowel have decreased slightly in diameter compared to . Soft tissues: No suspicious abdominal calcifications. Visualized solid organ contours appear normal in size. Bones: No suspicious bony lesions. Status post right hip arthroplasty. IMPRESSION: Dilated loops of small bowel compatible with small bowel obstruction. Dictated by: Ilana Rockwell MD, PhD on 06/08/2016 at 13:36 Xray abdomen, 1 view on 06/19/16 FINDINGS: Surgical changes and devices: NG tube projects past the GE junction and is looped within the body of the stomach. Bowel: Multiple dilated loops of small bowel noted compatible with bowel obstruction. Soft tissues: No suspicious abdominal calcifications. Visualized solid organ contours appear normal in size. Bones: No suspicious bony lesions. IMPRESSION: NG tube projects rest the GE junction. Dilated loops of small bowel compatible with small bowel obstruction. Dictated by: Ilana Rockwell MD, PhD on 06/19/2016 at 17:57 Xrays, acute abdominal series on 06/20/16 FINDINGS: Surgical changes and devices: Enteric tube with the tip in the distal stomach. Right PICC line with the tip projecting in the lower SVC. Chest: Bibasilar patchy opacities. Heart size is normal. No pleural effusions. No pneumoperitoneum. Abdomen: Mildly prominent left-sided small bowel loops which appear mildly improved since 06/15/16. No definite bowel obstruction at this time. Scattered air -fluid levels Bones: No suspicious bony lesions. IMPRESSION: Scattered air-fluid levels and mildly prominent small bowel loops although appear improved since 06/15/16. Recommend clinical correlation, and continued radiographic followup as the patient's symptoms warrant Dictated by: Theo Ellsworth M.D. on 06/20/2016 at 14:26 Other Diagnostics DATE OF SURGERY: 06/08/2016 PREOPERATIVE DIAGNOSIS(ES): Small bowel obstruction. POSTOPERATIVE DIAGNOSIS(ES): Small bowel obstruction. PROCEDURE PERFORMED: 1. Laparotomy. 2. Open lysis of adhesions. 3. Rectus sheath block with liposomal bupivacaine. SURGEON: Carolee Anderson MD ACIDITY TESTER: Aditi Roe PA-C FINDINGS: 1. Severe matted adhesions predominantly located within the right lower quadrant of the abdomen. 2. Meckel's diverticulum, nonobstructing. Brief History Per H & P by Sae Dawkins MD: 89-year-old gentleman with past medical history of recurrent SBO x6, hypertension, Bilateral carotid stenoses,multivessel CAD, history of laparotomy for small bowel obstruction, history of hernia repair presented with Generalized abdominal pain/10h,Dry heave/4 h,2 episodes of diarrhea/10 h. He states he woke up with sudden onset generalized, colicky, intermittent abdominal pain was associated abdominal distention at 3 AM this morning.he took Tums and Yogurt. He then had 2 episodes of loose stool. He continued to have abdominal pain and distention which prompted ED visit. He had dry cough yesterday which is new. Denies fever. Has epigastric pain but denies chest pain. Denies diaphoresis Ed Course: Vital signs unremarkable. Distended abdomen. labs; WBC 14.7, hemoglobin 14.7, sodium 127, lipase 25.ekg NSR abd XR: evolving mid or distal small bowel obstruction. IV fluids started, NG tube placed. Admission requested for small bowel obstruction Hospital Course The following were addressed during this hospitalization: Brandan is an 89yo male with a history of recurrent small bowel obstructions, hypertension, bilateral carotid artery stenosis, multivessel CAD who has been admitted for the treatment of a small bowel obstruction for which he underwent laparotomy with lysis of adhesions of 06/08/2016. Unfortunately, he has had a post operative ileus for which he had an NG tube which was removed on the morning of 06/17/16 and he tolerated clear liquids on 06/18/16. His nausea and distention returned on 06/19/16 for which a NG tube was placed and is no longer is place. 1. Post Operative Ileus, resolved - General Surgery followed the patient daily during his hospitalization - He was unable to tolerate oral intake and was losing weight, thus TPN was started via a PICC line on 06/13/16 - TPN discontinued on 06/1716 as his diet was advanced to soft and he has been consuming an adequate portion of his meals - The PICC line was removed on the date of discharge - Ambulated in the castaneda with nursing 3 times daily 2. Small Bowel Obstruction, Resolved - S/p Laparotomy and Open lysis of adhesions on 06/08/16 - General Surgery following 3. Essential Hypertension, chronic and well controlled - Initially held Lisinopril and oral metoprolol while he was NPO, restarted once he was able to have liquids - Monitor his blood pressure closely 4. Coronary Artery Disease - Continued home daily Aspirin - Continue home Statin therapy Exam Vital Signs (Last) Date Time Temp Pulse Resp B/P Pulse Ox O2 Delivery O2 Flow Rate FiO2 06/26/16 13:26 36.6 65 20 112/49 93 Room Air Exam On the date of discharge General: Elderly male who appears younger than his stated age sitting upright in the bedside chair eating breakfast upon my entering the room. No acute distress. Smiling and pleasant HEENT: Moist mucus membranes, sclera anicteric Cardiac: RRR without murmur, rub, or gallop. Respiratory: Good inspiratory effort, no wheezes, rales, or rhonchi. Abdomen: Normoactive bowel tones. Nondistended. Nontender. Midline surgical wound with edges well approximated and healing without erythema or drainage, there are [address] over the inferior portion of the wound. Extremities: No clubbing, edema, or cyanosis. Neuro: Awake, alert, and oriented. Normal speech. Moves all 4 extremities with ease Test 06/07/16 10:04 06/07/16 17:15 06/08/16 00:50 06/08/16 06:54 Lipase 25U/L (13-60) Lactic Acid Level 1.4mmol/L (0.4-2.0) Urine Color Dark yellow (YELLOW) Urine Appearance Clear (CLEAR,HAZY) Urine pH 6.0 (5.0-8.0) Urine Specific [place] 1.020 (1.003-1.035) Urine Protein Negativemg/dL (NEG,TRACE) Urine Glucose (UA) Negativemg/dL (NEGATIVE) Urine Ketones Negativemg/dL (NEGATIVE) Urine Occult Blood Negative (NEGATIVE) Urine Nitrite Negative (NEGATIVE) Urine Bilirubin Negative (NEGATIVE) Urine Urobilinogen Normalmg/dL (NORMAL) Urine Leukocyte Esterase Negative (NEGATIVE) Urine RBC 0-2/hpf (0-2) Urine WBC 0-5/hpf (0-5) Urine Epithelial Cells Occasional/hpf (NONE-MOD) Urine Crystals None seen (NONE SEEN) Urine Bacteria None/hpf (NONE-FEW) Urine Hyaline Casts None/lpf (NONE) Urine Granular Casts None seen (NONE SEEN) Urine Waxy Casts None seen (NONE SEEN) Urine Red Blood Cell Casts None seen (NONE SEEN) Urine White Blood Cell Casts None seen (NONE SEEN) Urine Mucus Present (None Seen) Urine Trichomonas None seen (NONE SEEN) Urine Yeast None (NONE SEEN) Total Bilirubin 1.0mg/dL (0.0-1.2) Aspartate Amino Transf (AST/SGOT) 24U/L (0-50) Alanine Aminotransferase (ALT/SGPT) 16U/L (0-44) Alkaline Phosphatase 42U/L (25-160) Test 06/09/16 08:28 06/12/16 07:58 06/21/16 06:00 06/24/16 05:40 Band Neutrophils % 6% (1-5) Prothrombin Time 12.5sec (8.1-12.5) Prothromb Time International Ratio 1.16ratio Activated Partial Thromboplast Time 28.5sec (22.8-33.0) Ionized Calcium (Calculated) 4.28mg/dL (3.5-5.2) Total Protein 5.6g/dL (6.4-8.4) Phosphorus Level 2.9mg/dL (2.5-4.9) Magnesium Level 1.9mg/dL (1.6-2.6) Albumin 3.0g/dL (3.4-5.0) Test 06/26/16 05:35 06/26/16 06:02 White Blood Count 8.1th/mm3 (3.8-10.1) Red Blood Count 3.30mil/mm3 (4.40-5.80) Hemoglobin 10.3g/dL (13.8-17.2) Hematocrit 30.9% (41.0-50.0) Mean Corpuscular Volume 93.6fL (81-100) Mean Corpuscular Hemoglobin 31.2pg (27.0-35.0) Mean Corpuscular Hemoglobin Concent 33.3% (32.0-37.0) Red Cell Distribution Width 12.6% (12.3-15.4) Platelet Count 353bil/L (150-400) Neutrophils (%) (Auto) 60.1% (40-74) Lymphocytes (%) (Auto) 25.6% (14-46) Monocytes (%) (Auto) 9.2% (4-12) Eosinophils (%) (Auto) 3.3% (0-5) Basophils (%) (Auto) 0.6% (0-3) Sodium Level 141mEq/L (134-144) Potassium Level 4.8mEq/L (3.5-5.2) Chloride Level 108mEq/L (97-108) Carbon Dioxide Level 23mmol/L (18-29) Blood Urea Nitrogen 27mg/dL (8-27) Creatinine 0.59mg/dL (0.76-1.27) Estimat Glomerular Filtration Rate 137mL/min (>59) Glucose Level 101mg/dL (60-99) Calcium Level 8.2mg/dL (8.5-10.1) Hold Purple Top Tube Received (Received) Hold [place] Top Tube Received (Received) Discharge Medications Discharge Medications Ascorbate Calcium (Vitamin C) 500 Mg Tablet 500 MG PO BID (Reported) Aspirin (Aspirin) 81 Mg Tablet 81 MG PO DAILY (Reported) Calcium Carbonate/Vitamin D3 (Calcium 600 + Vit D 400 Softgl) 1 Each Capsule 1 EACH PO BID (Reported) Cinnamon Bark (Cinnamon) 500 Mg Capsule 1,000 MG PO DAILY (Reported) Flaxseed/Omega3,6,9/Fatty Acid (Flax Seed Oil 1,300 mg Softgel) 1 Each Capsule 1 EACH PO DAILY (Reported) Lisinopril (Lisinopril) 5 Mg Tablet 10 MG PO DAILY (Reported) Lovastatin (Lovastatin) 40 Mg Tablet 40 MG PO HS (Reported) Metoprolol Tartrate (Metoprolol Tartrate) 25 Mg Tablet 12.5 MG PO BID (Reported ) [place]-3 Fatty Acids/Fish Oil (Fish Oil 1,200 mg Softgel) 1 Each Capsule 1 EACH PO HS (Reported) Ubidecarenone (Co Q-10) 100 Mg Capsule 100 MG PO DAILY (Reported) Vitamin B Complex & Vit C No.3 (B Complex with Vitamin C) 1 Each Capsule 1 EACH PO DAILYWL (Reported) Vitamin E Mixed (Vitamin E) 400 Unit Capsule 400 UNIT PO HS (Reported) Miscellaneous Medications Cholecalciferol (Vitamin D3) (Vitamin D3) 1,000 Unit Tab.chew 1,000 UNIT PO ( Reported) Additional med instructions You may resume your home medications. We have not added any new medications. Followup Plan Disposition: Home with [facility] Follow-up plan Please call Dr Mondragon's office to schedule a follow up appointment to be seen in 2 weeks from now. Discharge Diet: Heart Healthy Discharge Activity: Home Health Phyical Therapy Follow-up Provider: Carolee Anderson MD Follow-up with PCP in: 1 week Provider: Irving Mondragon DO Follow-up in: 2 weeks Time spent 40 minutes Attending Statement I have seen and evaluated patient at bedside in addition to directly supervising care provided by resident physician. I agree with above documentation. copies to: Irving Mondragon Rachel M DO Jun 26, 2016 15:18 Gavino Ventura DO Jun 27, 2016 08:38
== END 2016-06-26 17:00 | disposition home health service (06) | DRG 330 ==
LOC: SED 09:18 → MOC 14:15 → MPC 06-16 11:41
PROVIDERS: ADMIT Internal Medicine; ATTEND Internal Medicine
PROC: 0DN80ZZ Release Small Intestine, Open Approach (ICD-10-PCS; principal; 2016-06-09)
PROC: 0DQ80ZZ Repair Small Intestine, Open Approach (ICD-10-PCS; 2016-06-09)
DX: K56.5 Intestinal adhesions [bands] with obstruction (postinfection) (principal); E87.1 Hypo-osmolality and hyponatremia; S36.438A Laceration of other part of small intestine, initial encounter; K91.71 Accidental puncture and laceration of a digestive system organ or structure during a digestive system procedure; I10 Essential (primary) hypertension; E78.5 Hyperlipidemia, unspecified; E11.9 Type 2 diabetes mellitus without complications; Z87.891 Personal history of nicotine dependence; I25.10 Atherosclerotic heart disease of native coronary artery without angina pectoris; Z66 Do not resuscitate; Q43.0 Meckel's diverticulum (displaced) (hypertrophic); Y92.234 Operating room of hospital as the place of occurrence of the external cause; K56.7 Ileus, unspecified